=== PATIENT | female | born 1950 | race Caucasian/White ===

== ENCOUNTER 2024-10-05 10:39 | Outpatient (AMB) | payer MEDICARE, SELFPAY ==
--- NOTE | 2024-10-05 10:51 | A.SPINEOV_ITS ---
Vital Signs 10/05/24 11:17 Height 5 ft 3.5 in Weight 190 lb BMI 33.1 Intake Visit Reasons: severe back pain Intake Note: Ms. Donaldson is here today c/o severe low back pain. 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 She is a very nice 74-year-old female presents to the office today for evaluation of an acute onset pain back in August in her right-sided low back radiating down into her anterior thigh into her knee, going down her medial tibial region. At the time she was moving some boxes and lifting things that were probably heavier than she should of. Ultimately she ended up in the emergency room and then went to rehab. The pain seemed to calm down little bit with tincture of time and some gentle medication/physical therapy at the rehab. She is home at this point and still continuing to work with the [facility] but will soon be transitioning to outpatient. She underwent an MRI at [facility] showing a herniated disc on the right L4-5 tucked in the right L5 foramen near the right L4 nerve. This was superimposed on a spondylolisthesis at L4-5 and central canal stenosis at this level as well. She came in today to see us for an evaluation. Her pain is better than it was when she was at the rehab, but it is still nagging her in his not gone away. PMH: She is diabetic but her A1cs fairly well controlled at 6.7, hypertension, she had history of pancreatic cancer with a Whipple procedure, status post splenectomy at the same time. She has been cancer-free and her bowel function is normal. She had a pacemaker placed due to heart block many years ago. She has subsequently had the pacemaker replaced and currently has an MRI compatible 1. Denies any problems with her lungs, liver, kidneys, bleeding disorders, blood clots. Social hx: She does not smoke, drink or use any recreational drugs Medications: Gabapentin, Motrin, sliding scale insulin, Lantus, Wellbutrin and losartan Allergies: None Physical exam: Patient is awake alert oriented no acute distress, she uses a walker, she is able to stand up out of a chair with significant amount of pain and can get up on the examining table but is uncomfortable. Strength in bilateral lower extremities is normal, reflexes at the patella are intact. Diminished reflexes at the Achilles. Imaging review: Lumbar MRI done at [facility] reveals transitional anatomy, at L4-5 there is a grade 1 spondylolisthesis with severe central canal stenosis. In the right L4 foramen there is a herniated disc fragment compressing the right L4 nerve root. There some moderate degenerative disc disease at L2-3. Impression: 74-year-old female presents to the office today for evaluation of acute onset back pain and right L4 distribution nerve pain that started in August when she was lifting some boxes. She has gotten better since that time but not to the point where she is able to do many of the independent things that she would like. She is still using a walker and having to do [facility] at home. She is hoping to transition to outpatient soon. She has a herniated disc on the right L4-5 disc tucked into the right L4 foramen which I believe would explain her pain nicely. This is superimposed on degenerative issues such as spondylolisthesis at L4-5 and severe central canal stenosis. We talked about the natural history of disc herniations, and the fact that most of them will go away on their own if left alone. She has seen significant strides in her pain but again she is not back to being independent yet and this is frustrating her. She is going to continue to work with therapy for now, but if things fail she is interested in possibly considering surgery. I do not think that cortisone injections will be an option given her diabetes. Once I have a chance to review everything with Dr. Paulson I will call the patient back and let her know the final plan. Thank you for allowing us to care for your patient. The total time spent with this visit with this patient was 45 minutes reviewing history, physical exam, lumbar imaging review, and implementation of treatment plan or further diagnostic testing Tanner Paulson MD,PhD [facility] Coding Level of Care Code New Pt Level 4 (30008) Diagnoses Lumbar disc herniation M51.26
[2024-10-05 11:17] VITALS: BMI 33.1
--- OUTSIDE RECORDS SUMMARY | 2024-10-05 12:35 | XMS_ITS | Clinical Summary ---
Author Organization [facility], Address [address] [place] [address] Phone Care Team Providers Care Entry Level Installation Technician Name Role Phone Sherine Osborn MD Primary Care Provider + [phone] Allergies Active Allergy Reactions Criticality Noted Date Comments Lisinopril Other (see comments) Low 08/08/2017 Statins Other (see comments) Low 07/30/2018 Joint pain Medications buPROPion XL (WELLBUTRIN XL) 300 MG 24 hr tablet Take 300 mg by mouth daily Active insulin glargine (Lantus SoloStar) 100 UNIT/ML injection Comments: Filled Date: Oct 19 2016 12:00AM Duration: 90 6 Active amphetamine-de xtroamphetamin e XR (ADDERALL XR) 30 MG 24 hr capsule Take 1 capsule by mouth 1 (one) time each day 7 Active losartan (COZAAR) 25 MG tablet Take 25 mg by mouth 1 (one) time each day 9 Active ascorbic acid (VITAMIN C) 1000 MG tablet Take 1,000 mg by mouth daily Active cholecalcifero l (VITAMIN D-3) 25 MCG (1000 UT) tablet Take 3,000 Units by mouth daily Active omeprazole (PriLOSEC) [address] capsule Take 20 mg by mouth daily 1 Active HumaLOG KWIKPEN 100 UNIT/ML solution pen-injector INJECT 6-16 UNITS SUBCUTANEOUSLY 3 TIMES A DAY BEFORE MEALS ACCORDING TO SLIDING SCALE 1 Active Active Problems Problem Noted Date Diagnosed Date Stage 3a chronic kidney disease 05/08/2021 Carcinoma of pancreas 11/24/2020 Overview (05/04/2021): Last Assessment & Plan: Patient is feeling well and has elective removal scheduled for next month. Diabetes cannot be more aggressively controlled until her pancreatic tumor has been removed and she is otherwise medically optimized. CXR is done and WNL. I have reviewed medications to decrease or hold before the surgery as mentioned in the body of the note above. Also as mentioned above, she did have some lab work done at [facility] and she should let me know if there is anything else I need to order. 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 They also recommended a Hib vaccine and we do not have a supply of adult doses on hand but will request them from the hospital and patient will return in a couple of days to get this done. Abdominal pain, epigastric 09/15/2020 Overview (12/06/2020): Last Assessment & Plan: 70-year-old female with longstanding type 2 diabetes and many episodes of diverticulitis now presents with several years of mild lower abdominal pain, sometimes relieved by defecation, with intermittent constipation and diarrhea and 2 months of a new, quite intense epigastric pain. I think we need to image her abdomen to rule out a new malignancy based on the severity of the pain that she is describing. Assuming that her CAT scan is normal, it does sound like she probably has irritable bowel syndrome and we discussed what this is and how it can be treated. We will start with enteric-coated peppermint oil as directed on the bottle. We also need to rule out other causes and will check her for celiac disease, thyroid disease, and, given her diabetes, chronic pancreatitis. She had a colonoscopy after the more longstanding symptoms had already started, making inflammatory bowel disease or colon cancer very unlikely. No further diverticulitis was observed at that time and her symptoms are not consistent with a recurrence. Chronic kidney disease due to hypertension 10/27 Renal disorder due to type 2 diabetes mellitus 0 10/28/2019 Essential hypertension 06/04/2017 Overview (12/06/2020): Last Assessment & Plan: Stable on current therapies. Continue Cozaar. Last Assessment & Plan: Blood pressures controlled. Continue losartan. History of nutritional deficiency 06/04/2017 Overview (12/06/2020): Last Assessment & Plan: Encourage patient to restart vitamin D supplementation at 2000 IU daily. Will recheck vitamin D level in 3 months. Last Assessment & Plan: Encourage patient to restart vitamin D supplementation at 2000 IU daily. Will recheck vitamin D level in 3 months. Hyperlipidemia 06/04/2017 Overview (12/06/2020): Last Assessment & Plan: Stable, off medications. Repeat fasting lipid in 1 year. Last Assessment & Plan: Stable, off medications. Repeat fasting lipid in 1 year. Type 2 diabetes mellitus 06/04/2017 Overview (12/06/2020): Last Assessment & Plan: Overall improvement with adding Ozempic to current therapy, although concerned about cost of medication. Continue follow-up with Dr. Knott. Would recommend hemoglobin A1c every 3 months. Follow-up in office in 6 months for annual wellness exam. Last Assessment & Plan: Check A1c's. Continue insulin as per primary care provider. Resolved Problems Problem Noted Date Diagnosed Date Resolved Date Chronic kidney disease stage 3 10/28/2019 05/08/2021 Immunizations Name Administration Dates Next Due Hib (PRP-T) 03/03/2021 Influenza Split High Dose Pr eservative Free IM 04/30/2019,03/14/2017 Influenza TIV (IM) 02/23/2015, 3,04/25/2009,03/02,06/12/2007,05/31/2006 Influenza, Quadrivalent, Pre servative Free 05/05/2018 Influenza, Unspecified 04/28/2020 Meningococcal MCV4P 02/28/2021 Meningococcal, Unspecified 02/28/2021 Moderna SARS-COV-2 02/12/2021,09/06/2020, 021 Pneumococcal Conjugate 13-Valent 02/28/2021,07/01,03/21/2016 Pneumococcal Polysaccharide 09/02/2019, 5 Pneumococcal, Unspecified 03/09/2005 Td 02/07/2015 Zoster 09/08/2012 Family History Medical History Relation Comments Cancer Brother Bladder Heart disease Brother Hypertension Brother Brothers Cancer Father bladder Coronary artery disease Father Diabetes Father Hypertension Father Cancer Mother colorectal Relation Status Comments Brother Father Mother Social History Tobacco Use Types Packs/Day Years Used Date Smoking Tobacco: Never Alcohol Use Standard Drinks/Week Comments No 0 (1 standard drink = 0.6 oz pur e alcohol) Comments Unknown Sex and Gender Information Value Date Recorded Sex Assigned at Not on file Legal Sex Female 4:36 PM EST Gender Identity Not on file Sexual Orientation Not on file Occupation Industry Job Start Date Job End Date Retired Not on file Not on file Not on file Last Filed Vital Signs Vital Sign Reading Time Taken Comments Blood Pressure 142/70 05/08/2021 2:23 PM EST Pulse 68 05/08/2021 2:23 PM EST Temperature 36.7 ??C (98 ??F) 11/20/2018 12:00 PM EDT Respiratory Rate 14 05/08/2021 2:23 PM EST Oxygen Saturation - - Inhaled Oxygen Concentration - - Weight 75.8 kg (167 lb) 05/08/2021 2:23 PM EST Height 162.6 cm (5' 4 ) 05/08/2021 2:23 PM EST Body Mass Index 28.67 05/08/2021 2:23 PM EST Plan of Treatment Health Maintenance Due Date Last Done Comments Breast Cancer Screening 1950 Diabetes: Hemoglobin A1C 09/21/2019 08/29/2017 Diabetes: Ophthalmology Exam 09/21/2019 Diabetes: Pedal Pulse Checked 09/21/2019 Diabetes: Sensory Foot Exam 09/21/2019 Diabetes: Visual Foot Exam 09/21/2019 Influenza Vaccine (Season Ended) 2025 04/28/2020, 04/30/2019, 05/05/2018, Additional history exists Pneumococcal Vaccine: 65+ Years Completed 02/28/2021, 09/02/2019, 07/16/2017, Additional history exists Hepatitis B Vaccine Aged Out No longe r eligible based on patient's age to complete this topic Procedures Procedure Name Priority Date/Time Associated Diagnosis Comments 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 Routine 08/29/2017 12:00 PM EST from Last 3 Months or Most Recently Relevant to Health Maintenance Results * Lab Metal Bed Assembler (08/29/2017 12:00 PM EST) Hemoglobin A1C 7.7 % KCTMA 08/29/2017 12:0 0 PM EST us Kca Conversion LAB [id number] LICITED RESULTS [facility] from Last 3 Months or Most Recently Relevant to Health Maintenance Insurance MEDICARE [facility] Care Teams Entry Level Installation Technician Relationship Specialty Start Date End Date Sherine Osborn MD [address] [place] [id number] PCP - General Family Medicine 05/08/21
--- OUTSIDE RECORDS SUMMARY | 2024-10-05 12:35 | XMS_ITS | Encounter Summary ---
Author Organization [facility], Address [address] [place] [address] Phone Care Team Providers Care Risk Control Director Name Role Phone Sherine Osborn MD Primary Care Provider + [phone] Encounter Details Date Type Department Care Team (Late st Contact Info) Description 05/13/2020 Orders Only [facility] [address] [facility] [address] [place] [id number] Jeremiah Whiteside MD Chronic kidney disease stage 3 Social History Tobacco Use Types Packs/Day Years [...] file Not on file Not on file documented as of this encounter Plan of Treatment Not on file documented as of this encounter Visit Diagnoses Diagnosis Chronic kidney disease stage 3 (HCC) documented in this encounter Care Teams Risk Control Director Relationship Specialty Start Date End Date Sherine Osborn MD [address] [place] [address] PCP - General Family Medicine 05/08/21 documented as of this encounter
--- OUTSIDE RECORDS SUMMARY | 2024-10-05 12:35 | XMS_ITS | Data Portability ---
Author Organization [facility], [facility] Address [address] [place] [address] Care Team Providers Care Health Science Specialist Name Role Phone FAHAD KNOTT [place] Line Attendant FARHAN VERDUZCO Primary Care Provider [phone] Assessment Encounter Date Assessment Date Assessment LastModified by Organization Details LastModified Time 11/19/2023 11/19/2023 T2DM on LANTUS. Was on Ozempic (added 2018) with good effect but d/c after pancreatic tumor found and removed (9.21). Off Jardiance since 09/16. Couldn't tolerate metformin. Had UTI after victoza but not clear if that might have been due to high sugars at the time. 08/22: Currently on lantus with low dose humalog and still having lows after meals (mostly lunch). HYPERLIPIDEMIA: Not on lipid-lowering meds. Had severe myalgias likely on atorvastatin and some other. 10/19: LDL up to 125. No meds. 08/22: Discussed idea of non-statins (she had reactions to statins). 05/23: got approval for repatha- didn't start. waiting to see what new policy covers. Fatigue and other sx c/w thyroid but had normal TSH in past. Had normal BMD done in 2019 at [facility] with PCP. CGM REPORT: 11/21: Unable to download most recent month PRIOR CGM: 04/30/23- 3 IMPRESSION: Overall very good control of diabetes with 77% of the time spent in the target range. High values are most likely to occur during the middle of the day and in the evening. Some of these can be in response to hypoglycemia but others can occur prior to hypoglycemia. RECOMMENDATION: Review scale of short acting insulin especially at midday and evening meals. It may be worth decreasing that scale and using more long-acting. PRIOR CGM: 07/18-08/16/22 AVG GLU: 158 mg/dl +/- 60 mg/dl CV= 38% Time in range: 67% Time high: 30% Time low: 3% GENERAL PATTERN: Average glucose in target range for the entire 24 hour period. Highest variability is from 9PM until 5AM. Best average value is between 5-10AM. Values from noon until 3AM generally around 160mg/dl. INDIVIDUAL DAYS: About 30-40% of nights have hyperglycemia that started around 9PM. Multiple brief episodes of hypoglycemia often follow meals (lunch > dininer > bkfst) IMPRESSION: Good control of diabetes with 67% of time in target range. Significant variability throughout afternoon and even more so from 9PM until 4-5AM. Variability due to 30-40% of evenings and nights with hyperglycemia. RECOMMENDATION: Reduce short-acting insulin at meals to reduce frequency of hypoglycemia. Increase use of short-acting for meals/snacks in evening. Corrections for hyperglycemia lasting more than 2 hours may be appropriate. 08/22: Pancreatectomy in 2020 has been reason to stop incretin. 08/23: lows post meal but also highs late PM beyond MN. Using 7-9 with meals. drop to 6-8 units with meals. Lantus has been using 26 instead of 24 (prescribed). stay on 26 for now. 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 Classification was a pT2N0 tumor. - This is not a pancreatic cancer and may allow consideration of re-starting incretin. 05/23: Lows both precede and follow highs (mealtime). Try increase in basal and lower scale for meals. [email or web address] Not available 11/19/2023 18:51:35 12/26/2023 12/26/2023 T2DM on LANTUS. Was on Ozempic (added 2018) with good effect but d/c after pancreatic tumor found and removed (9.21). Off Jardiance since 09/16. Couldn't tolerate metformin. Had UTI after victoza but not clear if that might have been due to high sugars at the time. 08/22: Currently on lantus with low dose humalog and still having lows after meals (mostly lunch). 12/22: on 0.5 ozempic- increas. HYPERLIPIDEMIA: Not on lipid-lowering meds. Had severe myalgias likely on atorvastatin and some other. 10/19: LDL up to 125. No meds. 08/22: Discussed idea of non-statins (she had reactions to statins). 05/23: got approval for repatha- didn't start. waiting to see what new policy covers. 12/22: try and update approval for repatha and start when able. Fatigue and other sx c/w thyroid but had normal TSH in past. Had normal BMD done in 2019 at [facility] with PCP. CGM REPORT: 12/22: checked 14 and 30 day summary: TIR= 75% high= 19%; low= 6% Says lows can be o/n but also if delay in food from taking short-acting (at friends' house). PRIOR CGM: 04/30/23- 3 IMPRESSION: Overall very good control of diabetes with 77% of the time spent in the target range. High values are most likely to occur during the middle of the day and in the evening. Some of these can be in response to hypoglycemia but others can occur prior to hypoglycemia. RECOMMENDATION: Review scale of short acting insulin especially at midday and evening meals. It may be worth decreasing that scale and using more long-acting. PRIOR CGM: 07/18-08/16/22 AVG GLU: 158 mg/dl +/- 60 mg/dl CV= 38% Time in range: 67% Time high: 30% Time low: 3% GENERAL PATTERN: Average glucose in target range for the entire 24 hour period. Highest variability is from 9PM until 5AM. Best average value is between 5-10AM. Values from noon until 3AM generally around 160mg/dl. INDIVIDUAL DAYS: About 30-40% of nights have hyperglycemia that started around 9PM. Multiple brief episodes of hypoglycemia often follow meals (lunch > dininer > bkfst) IMPRESSION: Good control of diabetes with 67% of time in target range. Significant variability throughout afternoon and even more so from 9PM until 4-5AM. Variability due to 30-40% of evenings and nights with hyperglycemia. RECOMMENDATION: Reduce short-acting insulin at meals to reduce frequency of hypoglycemia. Increase use of short-acting for meals/snacks in evening. Corrections for hyperglycemia lasting more than 2 hours may be appropriate. Enhanced Provider time spent performing enhanced activities which may include, but are not limited to: reviewing tests, obtaining and/or reviewing patient history; ordering medications, test or procedures; EMR documentation; communication with patient, family, caregiver(s), VNA; pre-visit prep time communication with specialists, ER staff. Time spent: 38 (minutes) 12/22 08/22: Pancreatectomy in 2020 has been reason to stop incretin. 08/23: lows post meal but also highs late PM beyond MN. Using 7-9 with meals. drop to 6-8 units with meals. Lantus has been using 26 instead of 24 (prescribed). stay on 26 for now. 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 Classification was a pT2N0 tumor. - This is not a pancreatic cancer and may allow consideration of re-starting incretin. 05/23: Lows both precede and follow highs (mealtime). Try increase in basal and lower scale for meals. 12/22: decrease lantus and increase ozempic. try to have her call [employer] (couldn't download) re-order repatha. [email or web address] Not available 12/26/2023 13:46:54 02/27/2024 02/27/2024 T2DM on LANTUS. Was on Ozempic (added 2018) with good effect but d/c after pancreatic tumor found and removed (9.21). Off Jardiance since 09/16. Couldn't tolerate metformin. Had UTI after victoza but not clear if that might have been due to high sugars at the time. 08/22: Currently on lantus with low dose humalog and still having lows after meals (mostly lunch). 12/22: on 0.5 ozempic- increas. HYPERLIPIDEMIA: Not on lipid-lowering meds. Had severe myalgias likely on atorvastatin and some other. 10/19: LDL up to 125. No meds. 08/22: Discussed idea of non-statins (she had reactions to statins). 05/23: got approval for repatha- didn't start. waiting to see what new policy covers. 12/22: try and update approval for repatha and start when able. Fatigue and other sx c/w thyroid but had normal TSH in past. Had normal BMD done in 2019 at [facility] with PCP. CGM REPORT: 02/21: see download for details. 30 days - 01/29/24 - 02/27/24 PRIOR CGM: 07/18-08/16/22 AVG GLU: 130 was 158 mg/dl Time in range: 81% was 67% Time high: 14% was 30% Time low: 1% was 3% some highs after afternoon/evenin g but also risk for lows at those times. Also few lows early AM (pre-B). Since increasing ozempic, suggest small decreases in long-acting and lunch/dinner short-acting. 12/22: checked 14 and 30 day summary: TIR= 75% high= 19%; low= 6% Says lows can be o/n but also if delay in food from taking short-acting (at friends' house). PRIOR CGM: 04/30/23- 3 IMPRESSION: Overall very good control of diabetes with 77% of the time spent in the target range. High values are most likely to occur during the middle of the day and in the evening. Some of these can be in response to hypoglycemia but others can occur prior to hypoglycemia. RECOMMENDATION: Review scale of short acting insulin especially at midday and evening meals. It may be worth decreasing that scale and using more long-acting. PRIOR CGM: 07/18-08/16/22 IMPRESSION: Good control of diabetes with 67% of time in target range. Significant variability throughout afternoon and even more so from 9PM until 4-5AM. Variability due to 30-40% of evenings and nights with hyperglycemia. RECOMMENDATION: Reduce short-acting insulin at meals to reduce frequency of hypoglycemia. Increase use of short-acting for meals/snacks in evening. Corrections for hyperglycemia lasting more than 2 hours may be appropriate. Enhanced Provider time spent performing enhanced activities which may include, but are not limited to: reviewing tests, obtaining and/or reviewing patient history; ordering medications, test or procedures; EMR documentation; communication with patient, family, caregiver(s), VNA; pre-visit prep time communication with specialists, ER staff. Time spent: 38 (minutes) 12/22 08/22: Pancreatectomy in 2020 has been reason to stop incretin. 08/23: lows post meal but also highs late PM beyond MN. Using 7-9 with meals. drop to 6-8 units with meals. Lantus has been using 26 instead of 24 (prescribed). stay on 26 for now. 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 Classification was a pT2N0 tumor. - This is not a pancreatic cancer and may allow consideration of re-starting incretin. 05/23: Lows both precede and follow highs (mealtime). Try increase in basal and lower scale for meals. 12/22: decrease lantus and increase ozempic. try to have her call [employer] (couldn't download) re-order repatha. 02/21: Increase ozempic to 2mg. Since having lows at multiple points (but more often post-lunch and post-dinner), decrease small amount for long-acting and lunch/dinner bolus scales. [email or web address] Not available 02/27/2024 14:50:48 09/22/2024 09/22/2024 T2DM on LANTUS. Was on Ozempic (added 2018) with good effect but d/c after pancreatic tumor found and removed (9.21). Off Jardiance since 09/16. Couldn't tolerate metformin. Had UTI after victoza but not clear if that might have been due to high sugars at the time. 08/22: Currently on lantus with low dose humalog and still having lows after meals (mostly lunch). 12/22: on 0.5 ozempic- increase 09/22: Worse with recent admission and rehab. Pt. reports TIR is 50%. Off Ozempic and doesn't want to restart (constipation). HYPERLIPIDEMIA: Not on lipid-lowering meds. Had severe myalgias likely on atorvastatin and some other. 10/19: LDL up to 125. No meds. 08/22: Discussed idea of non-statins (she had reactions to statins). 05/23: got approval for repatha- didn't start. waiting to see what new policy covers. 12/22: try and update approval for repatha and start when able. 09/22: Much better on repatha Fatigue and other sx c/w thyroid but had normal TSH in past. Had normal BMD done in 2019 at [facility] with PCP. 09/22: Update at [facility]. CGM REPORT: 09/22: virtual visit- can't download (uses reader). Pt reports TIR is 50% 12/22: checked 14 and 30 day summary: TIR= 75% high= 19%; low= 6% Says lows can be o/n but also if delay in food from taking short-acting (at friends' house). PRIOR CGM: 04/30/23- 3 IMPRESSION: Overall very good control of diabetes with 77% of the time spent in the target range. High values are most likely to occur during the middle of the day and in the evening. Some of these can be in response to hypoglycemia but others can occur prior to hypoglycemia. RECOMMENDATION: Review scale of short acting insulin especially at midday and evening meals. It may be worth decreasing that scale and using more long-acting. PRIOR CGM: 07/18-08/16/22 AVG GLU: 158 mg/dl +/- 60 mg/dl CV= 38% Time in range: 67% Time high: 30% Time low: 3% IMPRESSION: Good control of diabetes with 67% of time in target range. Significant variability throughout afternoon and even more so from 9PM until 4-5AM. Variability due to 30-40% of evenings and nights with hyperglycemia. RECOMMENDATION: Reduce short-acting insulin at meals to reduce frequency of hypoglycemia. Increase use of short-acting for meals/snacks in evening. Corrections for hyperglycemia lasting more than 2 hours may be appropriate. Enhanced Provider time spent performing enhanced activities which may include, but are not limited to: reviewing tests, obtaining and/or reviewing patient history; ordering medications, test or procedures; EMR documentation; communication with patient, family, caregiver(s), VNA; pre-visit prep time communication with specialists, ER staff. Time spent: 38 (minutes) 09/22 08/22: Pancreatectomy in 2020 has been reason to stop incretin. 08/23: lows post meal but also highs late PM beyond MN. Using 7-9 with meals. drop to 6-8 units with meals. Lantus has been using 26 instead of 24 (prescribed). stay on 26 for now. 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 Classification was a pT2N0 tumor. - This is not a pancreatic cancer and may allow consideration of re-starting incretin. 05/23: Lows both precede and follow highs (mealtime). Try increase in basal and lower scale for meals. 12/22: decrease lantus and increase ozempic. try to have her call [employer] (couldn't download) re-order repatha. 09/22: worse control while in patient and rehab. trying to get back on track. Not taking ozempic. pt prefers to hold off. - ENDO RN F/U. May well need increase in insulin dosing based on Dexcom. [email or web address] Not available 09/22/2024 12:11:53 Plan of Treatment Reminders Order Date Submit Date Provider Last Modified By Organization Details Last Modified Time Details Appointments Tea rhona 2024 11:15A M [facility] Endocrinolog y Nurse Not available Not available Not available [place] ent- 30 2024 02:30P M DAGOBERTO GARDINERUCHER, DPT Not available Not available Not available Foll ow Up, 2024 02:00P M DAGOBERTO GARCIA, DPT Not available Not available Not available Foll ow Up, 30 2024 02:00P M DAGOBERTO GARCIA, DPT Not available Not available Not available Foll ow Up, 40 2024 03:40P M Fahad Knott MD Not available Not available Not available Lab lipfunmilayo houe l, seru m 2024 025 [facility], [address] [place] [address], [id number], 09/23/2024 14:17:08 micr oalb umin /cre atin ine, rati o ameyae l, urin e 2024 025 [facility], [address] [place] [address], [id number], 09/23/2024 14:17:08 CMP, seru m or plas ma 2024 025 [facility], [address] [place] [address], [id number], 09/23/2024 14:17:08 HbA1 c (hem oglo bin A1c) , bloo d 2024 025 [facility], [address] [place] [address], [id number], 09/23/2024 14:17:08 lipi d ameyae l, seru m [address] [facility], [address] [place] [address], [id number], 09/22/2024 08:48:06 lipi d pane l, seru m [address] [facility], [address] [place] [address], [id number], 09/22/2024 08:48:06 lipi d pane l, seru m [address] [facility], [address] [place] [address], [id number], 09/22/2024 08:48:06 micr oalb umin /cre atin ine, rati o vaishali l, alin e 2023 024 [facility], [address] [place] [address], [id number], 04/16/2024 14:32:57 CMP, seru m or plas ma [address] [facility], [address] [place] [address], [id number], 09/22/2024 08:48:12 HbA1 c (hem oglo bin A1c) , bloo d [address] [facility], [address] [place] [address], [id number], 09/22/2024 08:48:21 HbA1 c (hem oglo bin A1c) , bloo d [address] [facility], [address] [place] [address], [id number], 09/22/2024 08:48:21 CMP, seru m or plas ma [address] [facility], [address] [place] [address], [id number], 09/22/2024 08:48:12 CMP, seru m or plas ma [address] [facility], [address] [place] [address], [id number], 09/22/2024 08:48:12 Referral None maverick rded . Procedures None maverick rded . Surgeries None maverick rded . Imaging bone dens ity - Oste opor osis risk , plea se upda te and comp are. Not on medi mery on. Post -men opau katelyn 74 y.o. cauc yung n woma n.La st imag ing I see in [address] was 12/24 9 at [facility], jazmín ent thin k that she had it more rece ntly 2024 025 [email or web address] in [facility], [address] , [place], [id number], 09/30/2024 19:40:35 Medication Orders Ozem pic 2 mg/d ose (8 mg/3 mL) subc utan eous pen inje ctor 2023 024 [facility] [address] [place], [id number], 09/22/2024 11:11:38 Repa joselito Sure Clic k 140 mg/m L subc utan eous pen inje ctor 2023 024 [facility] [address] [place], [id number], 12/26/2023 13:51:57 Ozem pic 1 mg/d ose (4 mg/3 mL) subc utan eous pen inje ctor 2023 025 [facility] [address] [place], [id number], 09/22/2024 11:11:49 Patient TargetsNo targets recorded. Patient Instructions Encounter Date Encounter Id Patient Instructions Last Modified By Organization Details Last Modified Time 12/26/2023 [id number] - Get labs done as ordered - Continue to monitor your blood sugars as directed - Follow a healthy diet - Try and be as physically active as you can - Decrease Lantus (long acting) to from 24 units to 20 units in the evening. - Increase Ozempic to 1 mg weekly. - Continue Humalog (short-acting) scale as you have been doing. - Sending in new prescription for Repatha- shot every 2 weeks. Will send 30 day supply with refills. If you tolerate the medication, will switch to 90 day supply. - Schedule appointment with Endocrine nurse to see how you're doing 8 weeks. [email or web address] Not available 12/26/2023 13:50:46 6+ months/40 minutes. Not available 12/18/2023 11:16:42 09/22/2024 [id number] - Get labs done as ordered - Continue to monitor your blood sugars as directed - Follow a healthy diet - Try and be as physically active as you can - Continue Lantus (long acting) at 16 at bedtime. - You've decided to stay off Ozempic. - Continue Humalog (short-acting) scale as you have been doing. - Continue Repatha for cholesterol- shot every 2 weeks. - Schedule appointment with Endocrine nurse to see how you're doing 4 weeks. [email or web address] Not available 09/22/2024 12:14:48 6+ months/40 minutes. ENDO RN in 4 weeks. [email or web address] Not available 09/22/2024 12:14:57 Reason for Referral None Reported. Results Created Date Observation Date Name Description Value Unit Range Abnormal Flag Note LastModifiedBy Organization Detail LastModifiedTime 11/19/19 24 11/20/2023 COMP. METAB OLIC PANEL glucose 67 mg/dL 70-100 low Not Available [address], [id number], 11/20/2023 12:11:05 11/19/19 24 11/20/2023 COMP. METAB OLIC PANEL BUN 15 mg/dL 7-18 Not Available [address], [address], 11/20/2023 12:11:05 11/19/19 24 11/20/2023 COMP. METAB OLIC PANEL creatinine 1.0 mg/dL 0.8-1. 3 Not Available [address], [address], 11/20/2023 12:11:05 11/19/19 24 11/20/2023 COMP. METAB OLIC PANEL B/C 15.0 ratio Not Available [address], [address], 11/20/2023 12:11:05 11/19/19 24 11/20/2023 COMP. METAB OLIC PANEL GFR 59.9 mL/mi n abnormal >=60m L/min - Marychuy l or midly reduc ed <60mL /min- Decre ased kidne y funct ion <15mL /min - Kidne y failu re [facility] calcu lates estim ated Glome rular Filtr ation Rate (eGFR ) using the Chron ic Kidne y Disea se Epide miolo gy Colla borat ion (CKD- EPI) Equat ion (Marlon stacy et. al 2020) as recom israel d by the Natio nal Kidne y Found ation . eGFR is based on age, serum creat inine , and sex. CKD-E PI does not calcu late eGFR by race, does not apply to child jess (age <18 years ), and shoul d not be used in pregn sohail. Not Available [address], [address], 11/20/2023 12:11:05 11/19/19 24 11/20/2023 COMP. METAB OLIC PANEL sodium 139 mmol/ L 136-14 5 Not Available [address], [address], 11/20/2023 12:11:05 11/19/19 24 11/20/2023 COMP. METAB OLIC PANEL potassium 5.0 mmol/ L 3.5-5. 1 Not Available [address], [address], 11/20/2023 12:11:05 11/19/19 24 11/20/2023 COMP. METAB OLIC PANEL chloride 101 mmol/ L 96-107 Not Available [address], [address], 11/20/2023 12:11:05 11/19/19 24 11/20/2023 COMP. METAB OLIC PANEL anion gap 9.1 5.0-15 .0 Not Available [address], [address], 11/20/2023 12:11:05 11/19/19 24 11/20/2023 COMP. METAB OLIC PANEL CO2 29 mmol/ L 21-32 Not Available [address], [address], 11/20/2023 12:11:05 11/19/19 24 11/20/2023 COMP. METAB OLIC PANEL calcium 9.6 mg/dL 8.5-10 .3 Not Available [address], [address], 11/20/2023 12:11:05 11/19/19 24 11/20/2023 COMP. METAB OLIC PANEL total protein 7.0 g/dL 6.4-8. 2 Not Available [address], [address], 11/20/2023 12:11:05 11/19/19 24 11/20/2023 COMP. METAB OLIC PANEL albumin 3.4 g/dL 3.4-5. 0 Not Available [address], [address], 11/20/2023 12:11:05 11/19/19 24 11/20/2023 COMP. METAB OLIC PANEL globulin 3.6 g/dL Not Available [address], [address], 11/20/2023 12:11:05 11/19/19 24 11/20/2023 COMP. METAB OLIC PANEL A/G 0.9 ratio 0.8-2. 0 Not Available [address], [address], 11/20/2023 12:11:05 11/19/19 24 11/20/2023 COMP. METAB OLIC PANEL total bilirubin 0.30 mg/dL 0.00-1 .00 Not Available [address], [address], 11/20/2023 12:11:05 11/19/19 24 11/20/2023 COMP. METAB OLIC PANEL AST 20 U/L 0-37 Not Available [address], [address], 11/20/2023 12:11:05 11/19/19 24 11/20/2023 COMP. METAB OLIC PANEL ALT 23 U/L 6-63 Not Available [address], [address], 11/20/2023 12:11:05 11/19/19 24 11/20/2023 COMP. METAB OLIC PANEL alk. phos. 79 U/L 50-136 Not Available [address], [address], 11/20/2023 12:11:05 11/19/19 24 11/20/2023 LIPID PANEL cholesterol 193 mg/dL <200 mg/dl Surjit able 200-2 39 mg/dl Borde rline High >240 mg/dl High Not Available [address], [address], 11/20/2023 12:11:07 11/19/19 24 11/20/2023 LIPID PANEL triglyceride s 143 mg/dL <150 mg/dL Marychuy l 150-1 99 mg/dL Borde rline High 200-4 99 mg/dL High >500 mg/dL Very High Not Available [address], [address], 11/20/2023 12:11:07 11/19/19 24 11/20/2023 LIPID PANEL direct HDL 50 mg/dL <40 mg/dl - Major Risk for CHD >60 mg/dl - Negat neva Risk for CHD Not Available [address], [address], 11/20/2023 12:11:07 11/19/19 24 11/20/2023 DIREC T LDL direct LDL 123 mg/dL RISK CATEG ORY LDL GOAL _ CHD or CHD Risk Equiv alent s <100 mg/dl (10-y ear risk >20%) 2+ Risk Facto rs <130 mg/dl (10-y ear risk <= 20%) 0-1 Risk Facto r? <160 mg/dl ? Almos t all peopl e with 0-1 risk facto r have a 10 year risk <10%, thus 10 year risk asses ment in peopl e with 0-1 risk facto r is not rohith hyatt. Not Available [address], [address], 11/20/2023 12:11:08 11/19/19 24 11/20/2023 MICRO ALBUM IN/CR EATIN INE RATIO PANEL , URINE microalbumin 26.0 mg/L 1.3-20 .0 high Not Available [address], [address], 11/20/2023 13:55:15 11/19/19 24 11/20/2023 MICRO ALBUM IN/CR EATIN INE RATIO PANEL , URINE creatinine urine 68.1 mg/dL 30.0-1 25.0 Not Available [address], [address], 11/20/2023 13:55:15 11/19/19 24 11/20/2023 MICRO ALBUM IN/CR EATIN INE RATIO PANEL , URINE microalb/cre at ratio 38.2 mg/g_ creat 0.0-29 .0 high Not Available [address], [address], 11/20/2023 13:55:15 04/16/20 24 04/16/2024 MICRO ALBUM IN/CR EATIN INE RATIO PANEL , URINE microalbumin 10.0 mg/L 1.3-20 .0 Not Available [address], [address], 04/16/2024 14:32:57 04/16/20 24 04/16/2024 MICRO ALBUM IN/CR EATIN INE RATIO PANEL , URINE creatinine urine 74.6 mg/dL 30.0-1 25.0 Not Available [address], [address], 04/16/2024 14:32:57 04/16/2004/16/2024 MICRO ALBUM IN/CR EATIN INE RATIO PANEL , URINE microalb/cre at ratio 13.4 mg/g_ creat 0.0-29 .0 Not Available [address], [address], 04/16/2024 14:32:57 04/16/20 24 04/16/2024 HGB A1C hemoglobin A1C 6.7 % 4.8-6. 0 high Goal: <7% in Patie nts with Diabe jaymie An A1c betwe en 5.7-6 .4% is ident ified as pre-d iabet es and sugge sts risk for progr essio n to diabe jaymie Two a1c value s of 6.5% or highe r is consi stent with a diagn osis of diabe jaymie but may need furth er confi rmati on Not Available [address], [address], 04/16/2024 14:39:31 04/16/20 24 04/16/2024 HGB A1C estimated average glucose 145.6 mg/dL Not Available [address], [address], 04/16/2024 14:39:31 04/16/20 24 04/20/2024 COMP. METAB OLIC PANEL glucose 127 mg/dL 70-100 high Not Available [address], [address], 04/20/2024 12:01:40 04/16/20 24 04/20/2024 COMP. METAB OLIC PANEL BUN 12 mg/dL 7-18 Not Available [address], [address], 04/20/2024 12:01:40 04/16/20 24 04/20/2024 COMP. METAB OLIC PANEL creatinine 1.2 mg/dL 0.8-1. 3 Not Available [address], [address], 04/20/2024 12:01:40 04/16/20 24 04/20/2024 COMP. METAB OLIC PANEL B/C 10.0 ratio Not Available [address], [address], 04/20/2024 12:01:40 04/16/20 24 04/20/2024 COMP. METAB OLIC PANEL GFR 47.8 mL/mi n abnormal >=60m L/min - Marychuy l or midly reduc ed <60mL /min- Decre ased kidne y funct ion <15mL /min - Kidne y failu re [facility] calcu lates estim ated Glome rular Filtr ation Rate (eGFR ) using the Chron ic Kidne y Disea se Epide miolo gy Colla borat ion (CKD- EPI) Equat ion (Marlon r et. al 2020) as recom israel d by the Natio nal Kidne y Found ation . eGFR is based on age, serum creat inine , and sex. CKD-E PI does not calcu late eGFR by race, does not apply to child jess (age <18 years ), and shoul d not be used in pregn sohail. Not Available [address], [address], 04/20/2024 12:01:40 04/16/20 24 04/20/2024 COMP. METAB OLIC PANEL sodium 140 mmol/ L 136-14 5 Not Available [address], [address], 04/20/2024 12:01:40 04/16/20 24 04/20/2024 COMP. METAB OLIC PANEL potassium 5.2 mmol/ L 3.5-5. 1 high Not Available [address], [address], 04/20/2024 12:01:40 04/16/20 24 04/20/2024 COMP. METAB OLIC PANEL chloride 102 mmol/ L 96-107 Not Available [address], [address], 04/20/2024 12:01:40 04/16/20 24 04/20/2024 COMP. METAB OLIC PANEL anion gap 5.8 5.0-15 .0 Not Available [address], [address], 04/20/2024 12:01:40 04/16/20 24 04/20/2024 COMP. METAB OLIC PANEL CO2 32 mmol/ L 21-32 Not Available [address], [address], 04/20/2024 12:01:40 04/16/20 24 04/20/2024 COMP. METAB OLIC PANEL calcium 9.4 mg/dL 8.5-10 .3 Not Available [address], [address], 04/20/2024 12:01:40 04/16/20 24 04/20/2024 COMP. METAB OLIC PANEL total protein 7.0 g/dL 6.4-8. 2 Not Available [address], [address], 04/20/2024 12:01:40 04/16/20 24 04/20/2024 COMP. METAB OLIC PANEL albumin 3.6 g/dL 3.4-5. 0 Not Available [address], [address], 04/20/2024 12:01:40 04/16/20 24 04/20/2024 COMP. METAB OLIC PANEL globulin 3.4 g/dL Not Available [address], [address], 04/20/2024 12:01:40 04/16/20 24 04/20/2024 COMP. METAB OLIC PANEL A/G 1.1 ratio 0.8-2. 0 Not Available [address], [address], 04/20/2024 12:01:40 04/16/20 24 04/20/2024 COMP. METAB OLIC PANEL total bilirubin 0.60 mg/dL 0.00-1 .00 Not Available [address], [address], 04/20/2024 12:01:40 04/16/20 24 04/20/2024 COMP. METAB OLIC PANEL AST 17 U/L 0-37 Not Available [address], [address], 04/20/2024 12:01:40 04/16/20 24 04/20/2024 COMP. METAB OLIC PANEL ALT 24 U/L 6-63 Not Available [address], [address], 04/20/2024 12:01:40 04/16/20 24 04/20/2024 COMP. METAB OLIC PANEL alk. phos. 73 U/L 50-136 Not Available [address], [address], 04/20/2024 12:01:40 04/16/20 24 04/20/2024 LIPID PANEL cholesterol 119 mg/dL <200 mg/dl Surjit able 200-2 39 mg/dl Borde rline High >240 mg/dl High Not Available [address], [address], 04/20/2024 12:01:41 04/16/20 24 04/20/2024 LIPID PANEL triglyceride s 84 mg/dL <150 mg/dL Marychuy l 150-1 99 mg/dL Borde rline High 200-4 99 mg/dL High >500 mg/dL Very High Not Available [address], [address], 04/20/2024 12:01:41 04/16/20 24 04/20/2024 LIPID PANEL direct HDL 55 mg/dL <40 mg/dl - Major Risk for CHD >60 mg/dl - Negat neva Risk for CHD Not Available [address], [address], 04/20/2024 12:01:41 04/16/20 24 04/20/2024 LDL - CALCU LATED LDL - calculated 47 RISK CATEG ORY LDL GOAL _ CHD or CHD Risk Equiv alent s <100 mg/dl (10-y ear risk >20%) 2+ Risk Facto rs <130 mg/dl (10-y ear risk <= 20%) 0-1 Risk Facto r? <160 mg/dl ? Almos t all peopl e with 0-1 risk facto r have a 10 year risk <10%, thus 10 year risk asses ment in peopl e with 0-1 risk facto r is not neces olena. Not Available [address], [address], 04/20/2024 12:01:42 06/16/20 24 06/16/2024 HGB A1C hemoglobin A1C 6.4 % 4.8-6. 0 high Goal: <7% in Patie nts with Diabe jaymie An A1c betwe en 5.7-6 .4% is ident ified as pre-d iabet es and sugge sts risk for progr essio n to diabe jaymie Two a1c value s of 6.5% or highe r is consi stent with a diagn osis of diabe jaymie but may need furth er confi rmati on Not Available [address], [address], 06/16/2024 13:57:15 06/16/20 24 06/16/2024 HGB A1C estimated average glucose 137.0 mg/dL Not Available [address], [address], 06/16/2024 13:57:15 06/16/20 24 06/17/2024 COMP. METAB OLIC PANEL glucose 134 mg/dL 70-100 high Not Available [address] [place], [address], 06/17/2024 11:23:27 06/16/20 24 06/17/2024 COMP. METAB OLIC PANEL BUN 14 mg/dL 7-18 Not Available [address], [address], 06/17/2024 11:23:27 06/16/20 24 06/17/2024 COMP. METAB OLIC PANEL creatinine 1.2 mg/dL 0.8-1. 3 Not Available [address], [address], 06/17/2024 11:23:27 06/16/20 24 06/17/2024 COMP. METAB OLIC PANEL B/C 11.7 ratio Not Available [address], [address], 06/17/2024 11:23:27 06/16/20 24 06/17/2024 COMP. METAB OLIC PANEL GFR 47.8 mL/mi n abnormal >=60m L/min - Marychuy l or midly reduc ed <60mL /min- Decre ased kidne y funct ion <15mL /min - Kidne y failu re [facility] calcu lates estim ated Glome rular Filtr ation Rate (eGFR ) using the Chron ic Kidne y Disea se Epide miolo gy Colla borat ion (CKD- EPI) Equat ion (Marlon r et. al 2020) as recom israel d by the Natio nal Kidne y Found ation . eGFR is based on age, serum creat inine , and sex. CKD-E PI does not calcu late eGFR by race, does not apply to child jess (age <18 years ), and shoul d not be used in pregn sohail. Not Available [address], [address], 06/17/2024 11:23:27 06/16/20 24 06/17/2024 COMP. METAB OLIC PANEL sodium 141 mmol/ L 136-14 5 Not Available [address], [address], 06/17/2024 11:23:27 06/16/20 24 06/17/2024 COMP. METAB OLIC PANEL potassium 4.9 mmol/ L 3.5-5. 1 Not Available [address], [address], 06/17/2024 11:23:27 06/16/20 24 06/17/2024 COMP. METAB OLIC PANEL chloride 103 mmol/ L 96-107 Not Available [address], [address], 06/17/2024 11:23:27 06/16/20 24 06/17/2024 COMP. METAB OLIC PANEL anion gap 8.5 5.0-15 .0 Not Available [address], [address], 06/17/2024 11:23:27 06/16/20 24 06/17/2024 COMP. METAB OLIC PANEL CO2 30 mmol/ L 21-32 Not Available [address], [address], 06/17/2024 11:23:27 06/16/20 24 06/17/2024 COMP. METAB OLIC PANEL calcium 9.2 mg/dL 8.5-10 .3 Not Available [address], [address], 06/17/2024 11:23:27 06/16/20 24 06/17/2024 COMP. METAB OLIC PANEL total protein 6.8 g/dL 6.4-8. 2 Not Available [address], [address], 06/17/2024 11:23:27 06/16/20 24 06/17/2024 COMP. METAB OLIC PANEL albumin 3.5 g/dL 3.4-5. 0 Not Available [address], [address], 06/17/2024 11:23:27 06/16/20 24 06/17/2024 COMP. METAB OLIC PANEL globulin 3.3 g/dL Not Available [address], [address], 06/17/2024 11:23:27 06/16/20 24 06/17/2024 COMP. METAB OLIC PANEL A/G 1.1 ratio 0.8-2. 0 Not Available [address], [address], 06/17/2024 11:23:27 06/16/20 24 06/17/2024 COMP. METAB OLIC PANEL total bilirubin 0.50 mg/dL 0.00-1 .00 Not Available [address], [address], 06/17/2024 11:23:27 06/16/20 24 06/17/2024 COMP. METAB OLIC PANEL AST 18 U/L 0-37 Not Available [address], [address], 06/17/2024 11:23:27 06/16/20 24 06/17/2024 COMP. METAB OLIC PANEL ALT 24 U/L 6-63 Not Available [address], [address], 06/17/2024 11:23:27 06/16/20 24 06/17/2024 COMP. METAB OLIC PANEL alk. phos. 64 U/L 50-136 Not Available [address], [address], 06/17/2024 11:23:27 06/16/20 24 06/17/2024 LIPID PANEL cholesterol 122 mg/dL <200 mg/dl Surjit able 200-2 39 mg/dl Borde rline High >240 mg/dl High Not Available [address], [address], 06/17/2024 11:23:29 06/16/20 24 06/17/2024 LIPID PANEL triglyceride s 87 mg/dL <150 mg/dL Marychuy l 150-1 99 mg/dL Borde rline High 200-4 99 mg/dL High >500 mg/dL Very High Not Available [address], [address], 06/17/2024 11:23:29 06/16/20 24 06/17/2024 LIPID PANEL direct HDL 59 mg/dL <40 mg/dl - Major Risk for CHD >60 mg/dl - Negat neva Risk for CHD Not Available [address], [address], 06/17/2024 11:23:29 06/16/20 24 06/17/2024 DIREC T LDL direct LDL 53 mg/dL RISK CATEG ORY LDL GOAL _ CHD or CHD Risk Equiv alent s <100 mg/dl (10-y ear risk >20%) 2+ Risk Facto rs <130 mg/dl (10-y ear risk <= 20%) 0-1 Risk Facto r? <160 mg/dl ? Almos t all peopl e with 0-1 risk facto r have a 10 year risk <10%, thus 10 year risk asses ment in peopl e with 0-1 risk facto r is not neces olena. Not Available [address], [address], 06/17/2024 11:23:30 09/25/19 25 09/17/2024 MRI, lumba r spine No observ ation record ed. [facility] (Radiology) [address] [place], [address], 09/24/2024 17:05:14 Result Notes None recorded. Problems Name Problem SNOMED Code Status Onset Date Resolution Date Notes Provider Name and Address Organization Details Recorded Time Type 2 diabetes mellitus 12743106 Active dx'd approx . age 51 SILVESTRE Morin, RN, CPT, CDE [address] [place], [place] [address], [address], [facility] 5 15:25:54 Moderate recurrent major depression 44058968 Active Kimberly Jimenez NP [address] [place] [address] [place], [address], [facility] 5 11:22:53 Hypothyroidism 72480212 Active Corrine Brad null, [facility] 6 15:55:25 Vitamin B12 deficiency (non anemic) 61287575 Active Kimberly Jimenez NP [address] [place], [place] [address], [address], [facility] 5 10:03:47 Uncontrolled type 2 diabetes mellitus 757300207 Active Kimberly Jimenez NP [address] [place] [address] [place], [address], [facility] 6 13:39:25 Chronic kidney disease stage 3 812162280 Active 2021 GFR = 54, 2 Fahad Knott MD [address] [place] [address] [place], [address], [facility] 4 13:12:08 Problem Notes None recorded. Procedures Surgical History Date Name Laterality Status Provider Name and Address Organization Details Recorded Time 11/08/19 22 Medicare Visit Tracking DM completed Martha Mckeon RN, BSN, [address], [address], [facility] 11/07/2021 11:42:16 11/14/19 19 CGM Insertion Procedure completed Maria D Polk LPN [facility] 11/13/2018 16:37:58 07/01/19 14 Other (specify) completed Kimberly Jimenez NP [address] [place] [address], [phone], [facility] 02/09/2015 11:12:17 09/30/19 12 cardiac pacemaker procedure completed Maria D Polk LPN [facility] 10/16/2018 13:14:54 Tonsillectomy completed Kimberly Jimenez NP [address] [place], [address], [facility] 02/09/2015 11:12:17 Cholecystectomy completed Kimberly Jimenez NP [address] [place], [address], [facility] 02/09/2015 11:12:17 Imaging Results Imaging Date Name Status LastModified by Organiz ation Details LastModified Time 09/17/2024 MRI, lumbar spine completed [facility] (Radiology) [address] [place], [address], 09/24/2024 17:05:14 Procedure Notes None recorded. Medical Equipment None Reported. Allergies Allergen ID Allergen Name Allergen Category Reaction Reaction Severity Criticality Documentation Date Start Date Code Code System Note Provider Name and Address Organization Details Recorded Time 353519 metformin medicatio n diarrhea Not available Not available 02/09/2015 6809 RxNorm x 4 years ; think s it was only short actin g Kimberly Jimenez NP [address] [place] [address] [place], [address], [facility] 6 13:20:59 381519 honey bee venom environme nt other Not available Not available 02/23/2015 38980 7 RxNorm itchy throa t//Vera rd time linda Flores [facility] 5 09:25:16 911186 Victoza medicatio n other Not available Not available 07/07/2015 09370 3 RxNorm UTI Kimberly Jimenez NP [address] [place] [address] [place], [address], [facility] 6 13:20:59 Medications Name Sig Start Date Stop Date Status Note LastModified by Organization Details LastModified Time amoxicill in 500 mg caps active Not Available Not Available Not Available victoza 18 mg/3ml sopn active Not Available Not Available Not Available adderall xr 25 mg cp24 Take one capsule once a day active Not Available Not Available No t Available freestyle mis lancets active Not Available Not Available Not Available clindamyc in hcl 150 mg caps active Not Available Not Available Not Available freestyle jaymie insulinx active Not Available Not Available Not Available bupropion hcl xl 300 mg tb24 10/16 completed Not Available Not Available Not Available bupropion hcl xl 150 mg tb24 10/16 completed Not Available Not Available Not Available methylphe nidate hcl 5 mg tabs 10/16 completed Not Available Not Available Not Available adderall xr 30 mg cp24 active Not Available Not Available Not Available novofine [id number] 32g x 6 mm misc active Not Available Not Available Not Available metformin hcl er 500 mg tb24 10/16 completed Not Available Not Available Not Available phenazopy ridine hcl 200 mg tabs active Not Available Not Available Not Available sulfameth oxazole/t rimethopr im ds 800-160 mg tabs active Not Available Not Available Not Available metformin hcl 500 mg tabs active Not Available Not Available Not Available glipizide 5 mg tabs active Not Available Not Available No t Available proair hfa 108 (90 base) mcg/act aers active Not Available Not Available Not Available amphetami ne/dextro amphetami ne 30 mg cp24 06/25 completed Not Available Not Available Not Available levothyro xine sodium 25 mcg tabs 10/16 completed Not Available Not Available Not Available losartan 50 mg tablet TAKE 1 TABLET BY MOUTH ONCE DAILY active Not Available Not Available No t Available amoxicill in 500 mg capsule 10/16 completed Not Available Not Available Not Available metformin 500 mg tablet TAKE 1 TABLET BY MOUTH TWICE A DAY active Not Available Not Available No t Available azithromy mine 250 mg tablet 08/16 completed Not Available Not Available Not Available fosfomyci n trometham ine 3 gram oral packet 08/16 completed Not Available Not Available Not Available fluconazo le 150 mg tablet 10/16 completed Not Available Not Available Not Available valacyclo vir 1 gram tablet 08/16 completed Not Available Not Available Not Available phenazopy ridine 200 mg tablet Take 1 tablet 3 times a day by oral route for 3 days. active Not Available Not Available No t Available ondansetr on HCl 4 mg tablet TAKE 1 TABLET BY MOUTH EVERY 8 HOURS NEEDED FOR NAUSEA 09/22 completed Not Available Not Available Not Available methylphe nidate 5 mg tablet TAKE 1 TABLET BY MOUTH ONCE DAILY active not taking now 09/22/24 Not Available Not Available Not Available sulfameth oxazole 800 mg-trimet hoprim 160 mg tablet TAKE 1 TABLET BY MOUTH TWICE DAILY FOR 5 DAYS 12/25 completed Not Available Not Available Not Available acetamino phen 500 mg tablet TAKE 1 TABLET BY MOUTH EVERY 6 HOURS NEEDED FOR PAIN active Not Available Not Available No t Available levothyro xine 25 mcg tablet TAKE ONE TABLET BY MOUTH ONCE A DAY. 10/16 completed Not Available Not Available Not Available meclizine 25 mg tablet 04/30 completed Not Available Not Available Not Available doxycycli ne monohydra te 100 mg capsule TK 2 CS PO ONCE FOR 1 DOSE 10/04 completed Not Available Not Available Not Available cephalexi n 500 mg capsule TAKE 1 CAPSULE BY MOUTH FOUR TIMES DAILY FOR 7 DAYS 10/04 completed Not Available Not Available Not Available triamcino lone acetonide 55 mcg nasal spray aerosol U 1 SPR IEN BID FOR 14 DAYS 02/10 completed PRN Not Available Not Available Not Available losartan 25 mg tablet TAKE 1 TABLET BY MOUTH ONCE DAILY 12/25 completed Not Available Not Available Not Available omeprazol e 20 mg capsule,d elayed release TAKE 1 CAPSULE BY MOUTH ONCE DAILY active Not Available Not Available No t Available gabapenti n 100 mg capsule TAKE 2 CAPSULES BY MOUTH THREE TIMES DAILY active Not Available Not Available No t Available ergocalci ferol (vitamin D2) 1,250 mcg (50,000 unit) capsule TK 1 C PO ONCE WEEKLY 10/16 completed Not Available Not Available Not Available cefuroxim e axetil 500 mg tablet 12/11 completed Not Available Not Available Not Available scopolami ne 1 mg over 3 days transderm al patch 09/22 completed Not Available Not Available Not Available albuterol sulfate HFA 90 mcg/actua tion aerosol inhaler INHALE 2 PUFFS INTO THE LUNGS Q 4 H PRN active Not Available Not Available No t Available dextroamp hetamine- amphetami ne ER 30 mg 24hr capsule,e xtend release TAKE 1 CAPSULE BY MOUTH ONCE DAILY active states not taking now 09/22/24 Not Available Not Available Not Available hydromorp ren 4 mg tablet TAKE 1/2 TO 1 (ONE-MIHAI F TO ONE) TABLET BY MOUTH EVERY 6 HOURS NEEDED FOR PAIN 03/25 /2025 completed Not Available Not Available Not Available cefdinir 300 mg capsule 08/16 completed Not Available Not Available Not Available metformin ER 500 mg tablet,ex tended release 24 hr TAKE 1 TABLET BY MOUTH ONCE A DAY IN THE MORNING. 10/16 completed Not Available Not Available Not Available glipizide 5 mg tablet TAKE 1 TABLET BY MOUTH TWICE A DAY. 10/16 completed Not Available Not Available Not Available metoclopr amide 10 mg tablet TAKE 1 TABLET BY MOUTH TWICE DAILY FOR 3 DAYS 09/22 completed Not Available Not Available Not Available amoxicill in 875 mg-potass ium clavulana te 125 mg tablet TAKE 1 TABLET BY MOUTH TWICE DAILY FOR 10 DAYS active Not Available Not Available No t Available oxycodone 5 mg tablet TAKE 1 TABLET BY MOUTH EVERY 6 HOURS NEEDED FOR BACK PAIN 09/22 completed Not Available Not Available Not Available insulin lispro (U-100) 100 unit/mL subcutane ous pen INJECT 6 TO 16 UNITS SUBCUTAN EOUSLY THREE TIMES DAILY BEFORE MEAL(S) PER SLIDING SCALE active Not Available Not Available No t Available azithromy mine 500 mg tablet 04/30 completed Not Available Not Available Not Available escitalop lonnie 10 mg tablet TAKE 1/2 (ONE-MIHAI F) TABLET BY MOUTH ONCE DAILY active Not Available Not Available No t Available Vitamin D3 25 mcg (1,000 unit) tablet Take 1 tablet every day by oral route. 10/16 completed takes in winter Not Available Not Available Not Available bupropion HCl XL 300 mg 24 hr tablet, extended release TAKE 1 TABLET BY MOUTH IN THE MORNING active Not Available Not Available No t Available bupropion HCl XL 150 mg 24 hr tablet, extended release TK 1 T PO D 12/11 completed Not Available Not Available Not Available escitalop lonnie 5 mg tablet TAKE 1 TABLET BY MOUTH DAILY 05/30 completed Not Available Not Available Not Available metformin ER 500 mg tablet,ex tended release 24hr (osmotic) Take 1 tablet every day by oral route in the morning. 10/16 completed Not Available Not Available Not Available nitrofura ntoin monohydra te/macroc rystals 100 mg capsule TAKE 1 CAPSULE BY MOUTH TWICE DAILY FOR 7 DAYS 12/25 completed Not Available Not Available Not Available BD Ultra-Fin e Mini Pen Needle 31 gauge x 3/16 USE FOUR TIMES DAILY DIRECTED WITH HUMALOG AND LANTUS active Not Available Not Available No t Available FreeStyle Lancets use to check bg 3 x daily active Not Available Not Available No t Available BD Ultra-Fin e Short Pen Needle 31 gauge x 5/16 USE 1 UNDER THE SKIN DAILY active Not Available Not Available No t Available FreeStyle Lite Strips Use to check bg 3x day 2021 active Not Available Not Available Not Avai lable cholecalc iferol (vitamin D3) 1,250 mcg (50,000 unit) capsule TK 1 C PO ONCE A WEEK 10/16 completed Not Available Not Available Not Available FreeStyle Lite Meter Use to check bg 3x daily active Not Available Not Available No t Available Lantus Solostar U-100 Insulin 100 unit/mL (3 mL) subcutane ous pen INJECT 24 UNITS SUBCUTAN EOUSLY DAILY active taking 16 units daily 09/22/24 Not Available Not Available Not Available Novofine 32 32 gauge x 1/4 needle Use 1 needle daily 2014 active Not Available Not Available Not Avai lable GaviLyte- G 236 gram-22.7 4 gram-6.74 gram-5.86 gram oral solution 12/11 completed Not Available Not Available Not Available Victoza 2-Caio 0.6 mg/0.1 mL (18 mg/3 mL) subcutane ous pen injector Inject 0.6 mg daily x 1 week and if no side effects increase to 1.2 mg daily. 2014 active Not Available Not Available Not Avai lable Shae-cedric 8.6 mg tablet TAKE 1 TABLET BY MOUTH TWICE DAILY NEEDED FOR CONSTIPA TION active Not Available Not Available No t Available Jardiance 10 mg tablet TK 1 T PO QD IN THE MORNING 12/11 completed Not Available Not Available Not Available Praluent Pen 75 mg/mL subcutane ous pen injector 11/14 completed Not Available Not Available Not Available Repatha SureClick 140 mg/mL subcutane ous pen injector INJECT 1 ML SUBCUTAN EOUSLY EVERY TWO WEEKS active Not Available Not Available No t Available FreeStyle Precision Ronaldo Meter U UTD TO CHECK BS 08/16 completed Not Available Not Available Not Available Readi-Cat 2 2 % (w/v) oral suspensio n IF AM APPT DRINK 1 BOTTLE AT 8 PM NIGHT BEFORE AND SECOND BOTTLE 90 MINUTES BEFORE EXAM. IF PM APPT DRINK 1 BOTTLE 6 HOURS PRIOR TO EXAM AND SECOND BOTTLE 90 MINUTES PRIOR TO EXAM active Not Available Not Available No t Available Ozempic 0.25 mg or 0.5 mg (2 mg/1.5 mL) subcutane ous pen injector INJECT 0.5MG UNDER THE SKIN EVERY WEEK 08/16 completed Not Available Not Available Not Available Dexcom G6 Sensor device USE DIRECTED . CHANGE EVERY 10 DAYS 10/21 completed using G 7 and iphone Not Available Not Available Not Available Dexcom G6 Cattle Trader USE DIRECTED 10/21 completed using Dexcom G 7 now and iphone Not Available Not Available Not Available Dexcom G6 Transmitt er device USE DIRECTED CHANGE EVERY 90 DAYS 10/21 completed using G 7 and iphone Not Available Not Available Not Available Dexcom G6 Cattle Trader 08/16 completed Not Available Not Available Not Available Fluarix Quad 4431-1817 (PF) 60 mcg (15 mcg x 4)/0.5 mL IM syringe ADM 0.5ML IM UTD 10/16 completed Not Available Not Available Not Available Baqsimi 3 mg/actuat ion nasal spray nasal spray during severe hypoglyc emia. 12/25 completed SC: 08/22; Labs: 08/22 Not Available Not Available Not Available Nexletol 180 mg tablet 05/30 completed Not Available Not Available Not Available COVID-19 test specimen collectio n TEST DIRECTED 08/16 completed Not Available Not Available Not Available Ozempic 1 mg/dose (4 mg/3 mL) subcutane ous pen injector INJECT 1 MG SUBCUTAN EOUSLY ONCE A WEEK FOR 30 DAYS 09/22 completed Not Available Not Available Not Available BinaxNOW COVID-19 Ag Self Test kit TEST DIRECTED TODAY active Not Available Not Available No t Available Paxlovid 300 mg (150 mg x 2)-100 mg tablets in a dose pack TK 2 NIRMATRE LVIR TS AND 1 RITONAVI R T TOGETHER PO BID FOR 5 DAYS BID FOR 5 DAYS 08/16 completed Not Available Not Available Not Available Ozempic 2 mg/dose (8 mg/3 mL) subcutane ous pen injector INJECT 2 MG SUBCUTAN EOUSLY ONCE A WEEK active PT stopped when hospital ized this month Not Available Not Available Not Available Ozempic 0.25 mg or 0.5 mg (2 mg/3 mL) subcutane ous pen injector INJECT 0.5 (ONE-MIHAI F) MG SUBCUTAN EOUSLY EVERY 7 DAYS. APPOINTM ENT REQUIRED FOR FUTURE REFILLS, 1 MONTH OVERDUE 02/26 completed Not Available Not Available Not Available Vitals Date Recorded Body height Body mass index (BMI) Body weight Heart rate Systolic blood pressure Diastolic blood pressure Provider Name and Address Organization Details Last Updated DateTime 4 160.02 cm 34.9 kg/m2 42206.9 8 g 87 /min 133 mm[Hg] 84 mm[Hg] Lucita Clement LPN [facility] 4 13:10:50 Date Recorded Body height Body mass index (BMI) Body weight Provider Name and Address Organization Details Last Updated DateTime 09/22/2024 160.02 cm 33.7 kg/m2 39706.55 g Lucita Clement [facility] 09/22/2024 11:04:17 Social History Question Answer Notes LastModified by Organization Details LastModified Time Tobacco Smoking Status Never Smoker PRIYANKA Hurd, [facility] 02/09/2015 10:12:08 What Is Your Level Of Alcohol Consumption? None Information not available 02/09/2015 Do You Wear A Helmet When Biking? Yes Information not available 02/09/2015 What Is Your Level Of Caffeine Consumption? Occasional Iced Tea Every 3 Days Information not available 02/09/2015 How Much Tobacco Do You Chew? None Information not available 02/09/2015 What Type Of Diet Are You Following? REGULAR Information not available 02/09/2015 Which Illicit Or Recreational Drugs Have You Used? 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 0 Information not available 02/09/2015 Are There Any Guns Present In Your Home? No Information not available 02/09/2015 Live Alone Or With Others? With Others Information not available 02/09/2015 DM Disease Process Post-grasps [place] Information not available 05/09/2015 Nutrition Post-needs Review Information not available 05/09/2015 Physical Activity Post-needs Review Information not available 05/09/2015 Medications Post-needs Review Information not available 05/09/2015 Monitoring Post-needs Review Information not available 05/09/2015 Acute Complications Post-grasps [place] Information not available 05/09/2015 Chronic Complications Post-needs Review Information not available 05/09/2015 Coping Post-needs Review Information not available 05/09/2015 Behavior Change Post-needs Review Information not available 05/09/2015 DSME Plan Goal Using Medications Safely: Will Take Victoza As Prescribed Information not available 05/09/2015 DSME Plan Goal Success Initiated Information not available 05/09/2015 DSME Plan Goal Evaluation: 05/05/2015 Information not available 05/09/2015 DSME Plan Initiated: 05/05/2015 DSMT 1:1 X 7-8 Information not available 05/09/2015 DSME Plan Status In Progress - Dates Seen: 05/05 Information not available 05/09/2015 Marital Status Domestic Partner Maira Perman Information not available 02/09/2015 Mosquito Repellent Used Routinely No Information not available 02/09/2015 What Was The Date Of Your Most Recent Tobacco Screening? 12/11/2018 Information not available 01/21/2019 How Many Children Do You Have? 0 Information not available 02/09/2015 Seat Belts Used Routinely Yes Information not available 02/09/2015 Are You Sexually Active? Yes Information not available 02/09/2015 Smoke Alarm In Home Yes Information not available 02/09/2015 General Stress Level Medium Information not available 02/09/2015 Do You Use Any Illicit Or Recreational Drugs? No Information not available 08/16/2022 Do You Use Sunscreen Routinely? Yes Information not available 02/09/2015 Do You Or Have You Ever Used Any Other Forms Of Tobacco Or Nicotine? No Information not available 08/16/2022 Sex: Unknown Functional Status None recorded. Mental Status None recorded. Family History Relationship Description Onset Age of this Age Resolved Age Notes LastModified by Organization Details LastModified Time Mother Chronic obstructive pulmonary disease 80 Not available 02/09 11:10:02 Mother Malignant tumor of colon 55 colost allie Not available 02/09/2015 11:10:02 Father Myocardial infarction 71 NC x 12+, eventu ally Not available 02/09/2015 11:10:02 Father Coronary arterioscler osis 92 Not available 02/09 11:10:02 Father Malignant neoplasm of urinary bladder Not available 02/09 11:10:02 Father Alcoholism Not avail able 02/09/2015 11:10:02 Brother Malignant neoplasm of urinary bladder 58 Ez opher Not available 02/09/2015 11:10:02 Brother Essential hypertension Not available 11:10:02 Brother Depressive disorder Not available 02/09 11:10:02 Brother Alcoholism sober since 59 Not available 02/09/2015 11:10:02 Brother Congenital heart disease Esteban Not available 02/09 11:10:02 Paternal Aunt Malignant tumor of breast 70 Not available 02/09 11:10:02 Notes:2 brothers passed: aug 2019 and september 2019 maternal uncle passed 05/2019 paternal aunts w/ DM Dad 92 (EtOH); CAD, bladder CA Mom 80 (EtoH) with COPD (smoker) 2 brothers- one with congenital heart disease (holes)- moved to [place] to get surgery (citizen) ; other has HTN and CAD. 12/17- No kids. 06/18- Uncle - declining health. 02/17: Brothers- one with congenital heart- ongoing heart issues. Other from [place]. 10/19: Both brothers passed in 2019. 08/22: No family left. Medical History Condition Response Depression Y Pacemaker Y Diverticulosis Y Hypothyroid Y Diverticulitis Y Diabetes Type II Y Gynecological HistoryNo gynecological history recorded. Obstetrics History GPAL:G 0 P 0 0 0 0 Immunizations Vaccine Type Date Status Note Provider Nam e and Address Organization Details Recorded Time Influenza, split virus, quadrivalent, PF 5 completed Not Available [facility] 07/18/2019 02:19:45 influenza, unspecified formulation 3 completed Andree Louie, [facility] [facility] 02/09/2015 09:25:24 influenza, unspecified formulation 8 completed Andree Louie, [facility] P[facility] 02/09/2015 09:25:24 zoster live 3 completed Andree Louie, [employer] BA[employer] PICK[employer] [facility] 02/09/2015 09:25:24 influenza, unspecified formulation 7 completed Andree Louie, [employer] BAIT PICKER [facility] 02/09/2015 09:25:24 pneumococcal, unspecified formulation 5 completed Andree Louie, [employer] BA[employer] PICK[employer] [facility] 02/09/2015 09:25:24 influenza, unspecified formulation 6 completed Andree Louie, [employer] BA[employer] PICKER [facility] 02/09/2015 09:25:24 influenza, unspecified formulation 9 completed Andree Louie, [employer] BA[employer] PICK[employer] [facility] 02/09/2015 09:25:24 Td(adult) unspecified formulation 5 completed Andree Louie, [employer] BA[employer] P[employer] [facility] 02/09/2015 09:26:24 Influenza, high-dose, trivalent, PF 9 completed Not Available [facility] 07/18/2019 02:24:31 SARS-COV-2 (COVID-19) vaccine, UNSPECIFIED 1 completed Ida Westfall LPN [facility] 10/04/2020 13:14:24 COVID-19, mRNA, LNP-S, PF, 30 mcg/0.3 mL dose 2 completed Lucita Clement [facility] 08/16/2022 15:34:53 COVID-19, mRNA, LNP-S, PF, 30 mcg/0.3 mL dose 1 completed Lucita Racquel [employer]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 Hypothyroidism 24896346 Fatigue 17337057 Deep lacer ation of finger 861276011 Resolving. [id number] [facility], [address] [place] [address] 02/23/2015 09:17:14 02/23/2015 10:14:55 Influenza vaccine needed 8459116554 106 Type 2 iván betes mellitus 11258296 Hypothyroidism 52939648 Bite of no nvenomous arthropod 714827941 Lifestyle 006721298 Vitamin B1 2 deficiency (non anemic) 16702253 [id number] SILVESTRE Morin, RN, CPT, CDE [facility] , [address] [address] 05/05/2015 12:16:58 05/05/2015 13:46:12 Type 2 diabetes mellitus 90852001 E11.9 [id number] SILVESTRE Morin, RN, CPT, CDE DM Education , [address] [address] 05/30/2015 09:08:34 05/30/2015 09:47:39 Type 2 diabetes mellitus 78076234 E11.9 [id number] Ismael Hough MD , [facility], [address] [place] [address] 06/12/2015 09:26:19 06/12/2015 12:00:18 Blood in urine 02393246 R31.9 [id number] Kimberly Jimenez NP , [facility], [address] [place] [address] 07/07/2015 12:30:18 07/07/2015 13:42:42 Uncontrolled type 2 diabetes mellitus 576102441 E11.65 Hypothyroidism 18067517 E03.9 Due for recheck. [id number] Fahad Knott MD Endocrino logy, [address] [address] 10/16/2018 12:59:54 10/17/2018 07:18:55 Uncontrolled type 2 diabetes mellitus 694530253 E11.65 A1c in low-mid 7s (awaiting most recent from [facility]).Sirena nt regimen doesn't have great coverage for post-prand ial. Would like to have better understand ing of her glycemic pattern.Pr o-CGM would provide that. Place standing orders. Options will include:- Change to longer lasting insulin (Tresiba/T oujeo)- Re-try Victoza to see if she tolerates Look into continuous glucose monitor (CGM) for her. At least the profession al to assess glycemic pattern Essential hypertension 82955484 I10 On losartan (25). [place] hum 52052875 R2 2.2 Check 24 hour urine for cortisol. [id number] Fahad Knott MD Endocrino logy, [address] [address] 11/13/2018 15:32:16 11/17/2018 07:26:35 Type 2 diabetes mellitus 55115835 E11.9 [id number] Maria D Polk LPN Endocrino logy, [facility] [address] [place] [address] 11/26/2018 14:54:28 11/27/2018 06:17:30 [id number] Fahad Knott MD Endocrino logy, [address] [address] 12/11/2018 15:00:52 12/12/2018 07:13:07 Uncontrolled type 2 diabetes mellitus 371246686 E11.65 A1c in low-mid 7s (awaiting most recent from [facility]). 7.1 in 08/19- reflected Lantus and Jardiance (had gone off of Victoza as while back).But off Jardiance shortly after this lab. No recent values. Just lantus doesn't have great coverage for post-prand ial. Encourage getting labs on regular basis. Options will include:- trial of another GLP-1 agonist (prefer weekly options of either semaglutid e or dulaglutid e)- combinatio n of GLP-1 with long-actin g insulin (Soliqua or Xultophy)- Possible DPP-4 inhibitor but won't get weight loss benefit. Also, will want to come back and discuss trial with pravastati n (low dose) or use of statin TIS. Agree to try semaglutid e. start at low dose. Essential hypertension 49159086 I10 On losartan (25). Fatigue 83391912 R53.83 No hx of snoring but wakes up tired on most days. Would suggest discussing with PCP about sleep study. [id number] Fahad Knott MD Endocrino logy, [address] [address] 04/30/2019 10:34:11 04/30/2019 12:52:19 Active or passive immunization 445284627 Z23 2019 Uncontroll ed type 2 diabetes mellitus 944832539 E11.65 A1c down to 6.4 in 03/19. Had been higher in low-mid 7s (awaiting most recent from [facility]). Doing very well on Ozempic with Lantus 16 (AM). Encourage getting labs on regular basis. standing orders placed 11/2018. Increase semaglutid e to 0.5. Decrease Lantus from 16 to 12 units.At some point, may look at ratio of glargine to ozempic and see if mixed product (Soliqua/X ultophy) might be easier option. Essential hypertension 67005246 I10 On losartan (25). BP at target today Fatigue 56197949 R53.83 Reports having normal TFTs in past. Last TSH in record was 06/17 (2.54). No hx of snoring but wakes up tired on most days. Would suggest discussing with PCP about sleep study. [id number] Fahad Knott MD Endocrino logy, [facility] [address] [place] [address] 06/25/2019 10:31:57 06/25/2019 12:59:08 Uncontrolled type 2 diabetes mellitus 467600796 E11.65 A1c down to 6.5 (06/18); was 6.4 in 03/19.Had been higher in low-mid 7s (awaiting most recent from [facility]). Doing very well on Ozempic with Lantus 12 (AM). Encourage getting labs on regular basis. standing orders placed 11/2018. Continue on semaglutid e at 0.5. Stay on Lantus 12 units. At some point, could consider looking at ratio of glargine to ozempic and see if mixed product (Soliqua/X ultophy) might be easier option. Essential hypertension 67473903 I10 On losartan (25). BP at target today Fatigue 89299697 R53.83 Last TSH in record was 06/17 (2.54). No hx of snoring but wakes up tired on most days. Would suggest discussing with PCP about sleep study. [id number] Fahad Knott MD Endocrino logy, [facility] [address] [place] [address] 02/11/2020 08:14:47 02/16/2020 07:15:43 Uncontrolled type 2 diabetes mellitus 180977504 E11.65 A1c up to 7.2 (01/17); was down to 6.5 (06/18); was 6.4 in 03/19.Had been up to 9.2 in 2014. Doing very well on Ozempic with Lantus 12 (AM). Monitor BG at home. Continue on semaglutid e at 0.5. Stay on Lantus 12 units. Nurse visit 4-6 weeks. At some point, could consider looking at ratio of glargine to ozempic and see if mixed product (Soliqua/X ultophy) might be easier option. Essential hypertension 70861802 I10 On losartan (25). BP at target today Fatigue 52353721 R53.83 TSH = 2.24 in 2016. No hx of snoring but wakes up tired on most days.Would suggest discussing with PCP about sleep study. Update TSH. [id number] Fahad Knott MD Endocrino logy, [address] [address] 10/04/2020 13:09:18 10/05/2020 19:24:19 Uncontrolled type 2 diabetes mellitus 479177998 E11.65 A1c= 6.9 (08/21); was 7.2 (01/17); was down to 6.5 (06/18); was 6.4 in 03/19. Had been up to 9.2 in 2014. Doing very well on Ozempic (0.5) with Lantus 16 (AM). Could consider trying to increase Ozempic but she has been having abdominal pain (didn't start with Ozempic or change in dose), so don't want to make any changes now. MRI this week for abdominal pain. Monitor BG at home. At some point, could consider looking at ratio of glargine to ozempic and see if mixed product (Soliqua/X ultophy) might be easier option. Essential hypertension 47906007 I10 On losartan (25). Fatigue 03622755 R53.83 TSH = 2.24 in 2015. No hx of snoring but wakes up tired on most days.Would suggest discussing with PCP about sleep study. Update TSH. [id number] Fahad Knott MD Endocrino logy, [address] [address] 08/16/2021 09:04:26 08/31/2021 18:23:01 Uncontrolled type 2 diabetes mellitus 275912081 E11.65 A1c= 8.2 (02/18); 6.9 (08/21); was 7.2 (01/17); was down to 6.5 (06/18); was 6.4 in 03/19. Had been up to 9.2 in 2014. Had been doing well on Ozempic (0.5) with Lantus 16 (AM).08/22: Off Ozempic s/p partial pancreatec rylie. Given Humalog with lantus but having lows after meals (mostly lunch) - Could consider CGMPt. interested . Discussed option of CGM +/- pump.Start with dexcom. Essential hypertension 90101121 I10 On losartan (25). Fatigue 30241448 R53.83 TSH = 3.61 (02/18); was 2.24 in 2016. No hx of snoring but wakes up tired on most days. [id number] Martha Mckeon, RN, BSN, [facility] DM Education , [facility] [address] [place] [address] 10/12/2021 10:48:44 10/12/2021 13:03:32 Uncontrolled type 2 diabetes mellitus 626486095 E11.65 -In person appt with Tomeka today at [facility].-Cherise patel referred by Dr. Knott for diabetes education. -Last A1C was 8.4% in August, it had been 8.2% in January. 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 Had the surgery done at [facility] [place]. Had a malignant tumor in her pancreas. Had CT scan done yesterday to make sure she does not need further treatment. -Stopped taking Ozempic after tumor discovered . -Had sepsis for a month and a half after the surgery.-N ow she has gained 22 lbs weight. Her weight is now 184 lbs. She feels like she is exercising and eating well and still struggling with her weight. She felt she was doing better with the Ozempic. -Current Medication s:Lantus 26 units once a day.Humalo g 6-16 units based on sliding scale, 3x/day. -Pt comes today with the Dexcom G6 sensor, requesting training.- Called [facility] because pt did not have the transmitte r with her. Only had the sensor and the reader. The Pharmacy reports that pt picked up the transmitte r on even though the RX looks like it was sent from us on . Pt. will look to see if she has the transmitte r at home.-[employer] had a sample of the transmitte r and we were able to start and insert the sensor today.-Pt. was able to get the Dexcom G6 sensor started during this visit. -PLAN: Start Dexcom G6 sensor today and wear it until our next appt. Encouraged pt bring her meter and her sensor for download so we can review her blood sugars informatio n. No changes made today since we were unable to review her data. [id number] Martha Mckeon, RN, BSN, [facility] DM Education , [facility] [address] [place] [address] 11/07/2021 07:59:27 12/13/2021 13:29:40 Uncontrolled type 2 diabetes mellitus 890294006 E11.65 -In person appt with Tomeka today at [facility].-Kindl y referred by Dr. Knott for diabetes education. -Last A1C was 8.4% in August, it had been 8.2% in January. 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 Had the surgery done at [facility] [place]. Had a malignant tumor in her pancreas. Had CT scan done yesterday to make sure she does not need further treatment. -Stopped taking Ozempic after tumor discovered . -Had sepsis for a month and a half after the surgery. -Current Medication s:Lantus 26 units once a day.Humalo g 3-5 units based on sliding scale, 3x/day. -Pt came to our previous appt with the Dexceom G6 sensor and we reviewed how it is inserted. She did not have a transmitte r at the time, therefore, [facility] had a sample and we gave her one. She did however, try to insert the next sensor into her skin the second time and it would not work, therefore, we suspect that she had used a different transmitte r because she brought 2 transmitte rs into the office today and we re-inserte d the sensor, determined which transmitte r was programmed into her toggler and used that transmitte r. Told her that she might have tried using the other transmitte r and it was not programmed into her toggler with the SN entered in. Download of her sensor today reveals:-A verage glucose for the last 30 days was: 159 mg/dl.-70% are in target range (70-180 mg/dl); 19% are above 180 mg/dl; 9% are above 250 mg/dl; 1% are below 70 mg/dl and <1% are below 50 mg/dl. -The main trend noted are elevated glucose for short periods of time at 10 am, 6 pm and 1 am. Also having a mix of low glucose with no pattern noted. -PLAN: Start Dexcom G6 sensor again today. Had difficulty with inserting it the second time and we reviewed how to insert it again. The main issue had been that she had 2 transmitte rs and may have used the transmitte r that was not programmed with her reader. She had no trouble inserting a new sensor after we reviewed the steps today. She was encouraged to enter her doses of short acting insulin so we can understand how she is responding to her Humalog with meals. She reports she is dropping quickly from the Humalog, however, the low glucose do not appear to have a pattern. Created a Carb Ratio and Correction factor cheat sheet for her to try since she is not always eating large amounts of carbohydra jaymie with meals and this might also help prevent low glucose after meals. Based on her total daily insulin of 35 units per day, calculated out that her Carbohydra te ratio is 1 unit for 15 grams and her Correction factor is 1 unit for 50 mg/dl if above 100 mg/dl. She will try to use this new dosing for Humalog and document it into her Dexcom reader. FU in 1 month for download of the sensor. Reviewed:H ow to insert the sensor again. How to check the transmitte r programmed into the reader. Reviewed the sensor download in detail. [id number] Fahad Knott MD Endocrino logy, [address] [address] 08/16/2022 15:04:17 08/17/2022 07:34:06 Uncontrolled type 2 diabetes mellitus 929953080 E11.65 A1c= 7.0 (07/23); was 7.5% (11/19) was 8.2 (02/18); 6.9 (08/21); was 7.2 (01/17); was down to 6.5 (06/18); was 6.4 in 03/19. Had been up to 9.2 in 2014. 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 Also having highs evening lasting past MN in 30-40% of times. Decrease Humalog at meals but stay on 26 units of lantus that she's been taking. May want to consider change to Toushefalio/Madhu ayoub to have better coverage overnight (assuming she's taking dose in AM). Might be able to re-start incretin. Will check other sources for connection between GLP1-RA and neuroendoc rine tumors. Essential hypertension 30363284 I10 On losartan (25). Fatigue 79044124 R53.83 TSH = 4.07 (11/19) was 3.61 (02/18); was 2.24 in 2015. Pt reports PCP said that her TSH was close to abnormal and wondered about tx.Discuss ed concept of normal range and that normal there's no evidence to suggest treating a normal TSH will be helpful. For fatigue, if she hasn't had sleep evaluation , that might be worth considerkathe carnes [id number] Fahad Knott MD Endocrino logy, [address] [address] 05/30/2023 13:24:00 06/27/2023 14:28:07 Uncontrolled type 2 diabetes mellitus 430507581 E11.65 A1c= 6.9 (05/23 and 10/21) was 7.0 (07/23); was 7.5% (11/19) was 8.2 (02/18); 6.9 (08/21); was 7.2 (01/17); was down to 6.5 (06/18); was 6.4 in 03/19. Had been up to 9.2 in 2014. 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 Decrease scale by 2 units for now (mostly for evening; lunch may be able to go up).ENDO RN in 2 months. bring in scale. Essential hypertension 77020302 I10 On losartan (25). Fatigue 22564297 R53.83 TSH = 4.07 (11/19) was 3.61 (02/18); was 2.24 in 2016. Pt reports PCP said that her TSH was close to abnormal and wondered about tx.Discuss ed concept of normal range and that normal there's no evidence to suggest treating a normal TSH will be helpful. For fatigue, if she hasn't had sleep evaluation , that might be worth considerin g. [id number] Fahad Knott MD Endocrino logy, [address] [address] 08/29/2023 10:10:02 10/24/2023 07:41:59 Uncontrolled type 2 diabetes mellitus 296109194 E11.65 New insulin dosing :1.) - try Ozempic 0.25 mg weekly2. ) will send new carb chart to pt ( pt on portal, but can mail or pt can come to supervisor opening and picking. )3.) Lantus same 24 unitReview ed S/S hypoglycem ia - handout given, reviewed how/when to treat ? glucose tabs and oj and followed by protein [id number] Adrian Heart RN Endocrino logy, [address] [phone] 10/22/2023 10:44:54 10/25/2023 13:01:13 Uncontrolled type 2 diabetes mellitus [id number] E11.65 [id number] Fahad Knott MD Endocrino logy, [address] [address] 11/19/2023 13:05:07 11/21/2023 08:52:03 Uncontrolled type 2 diabetes mellitus [id number] E11.65 VISIT HgbA1c -HGB A1C 08-26-2023 -7.3 %, (08/24) was 6.9 (05/23) Diabetic Meds:1.) - Started Ozempic 0. 5 mg x 1 - finished 0.25 mg x 4 weeks2.) - Lantus 24 units daily - around 9 PM3.)- Humalog - sliding scale - 5 -8 units 100 - every 50 unit increment by 1 unit ( needs to take 20- 30 min before meals ) DR KNOTT IN TO SEE PT AND REVIEW CGM RESULTS CGM download unable to view - pt is not connected to clarity gwen - somehow deleted from phone, unable to add gwen today d/t pt not knowing her Apple ID password. - Dr Knott reviewed phone results - basically same as has been with previous reading from CGM - ave 149 and range - 76 % over 2 week period. Plan :1.) - Advised to continue same doses - just started increase in Ozempic to 0.5 mg2.)- Try to plan to have mealtime insulin given 20- 30 minutes before eating.3.) - Lab today.4.)- Dexcom G 7 Cattle Trader set for patient.5. )- Return visit- Dr Knott appt on 12/26/23 - bring Dexcom g 7 Reader6.)- Try to plan to have mealtime insulin given 20- 30 minutes before eating. Essential hypertension [id number] I10 On losartan (25). Fatigue [id number] R53.83 TSH = 4.07 (11/19) was 3.61 (02/18); was 2.24 in 2015. Pt reports PCP said that her TSH was close to abnormal and wondered about tx.Discuss ed concept of normal range and that normal there's no evidence to suggest treating a normal TSH will be helpful. For fatigue, if she hasn't had sleep evaluation , that might be worth considerkathe carnes [id number] Fahad Knott MD Endocrino logy, [address] [address] 12/26/2023 13:00:48 12/26/2023 13:52:59 Uncontrolled type 2 diabetes mellitus [id number] E11.65 A1c= 7.3 (08/24) was 6.9 (05/23 and 10/21) was 7.0 (07/23); was 7.5% (11/19) was 8.2 (02/18); 6.9 (08/21); was 7.2 (01/17); was down to 6.5 (06/18); was 6.4 in 03/19. Had been up to 9.2 in 2014. 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 Decrease scale by 2 units for now (mostly for evening; lunch may be able to go up).ENDO RN in 2 months. bring in scale. 12/22: Decrease lantus (HS) from 24 units to 20 units.Incr ease Ozempic 0.5 -> 1.0.review ed- labs q 3 months Essential hypertension [id number] I10 On losartan (50). Fatigue 06083896 R53.83 TSH = 3.22 (10/22) was 4.07 (11/19) was 3.61 (02/18); was 2.24 in 2015. Not on thyroid meds. Pt reports PCP said that her TSH was close to abnormal and wondered about tx.Discuss ed concept of normal range and that normal there's no evidence to suggest treating a normal TSH will be helpful. For fatigue, if she hasn't had sleep evaluation , that might be worth considerin g. Hyperlipid emia due to type 2 diabetes mellitus [id number] 18873 E78.5 NOT CONTROLLED 11/21: 193/143/53 /123 no meds. couldn't tolerate statins.Wa s approved for repatha last year but question about new insurance. re-order [id number] Fahad Knott MD Endocrino logy, [facility] [address] [place] [address] 02/27/2024 09:55:52 02/27/2024 14:55:10 Uncontrolled type 2 diabetes mellitus [id number] E11.65 A1c= 7.3 (08/24) was 6.9 (05/23 and 10/21) was 7.0 (07/23); was 7.5% (11/19) was 8.2 (02/18); 6.9 (08/21); was 7.2 (01/17); was down to 6.5 (06/18); was 6.4 in 03/19. Had been up to 9.2 in 2014. 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 Decrease scale by 2 units for now (mostly for evening; lunch may be able to go up).ENDO RN in 2 months. bring in scale. 12/22: Decrease lantus (HS) from 24 units to 20 units.Incr ease Ozempic 0.5 -> 1.0. 02/21: Increase ozempic to 2mg. Since having lows at multiple points (but more often post-lunch and post-dinne r), decrease small amount for long-actin g and lunch/dinn er bolus scales. [id number] Fahad Knott MD Endocrino logy, [address] [phone] 09/22/2024 10:57:24 09/23/2024 16:02:30 Uncontrolled type 2 diabetes mellitus [id number] E11.65 09/22: Uncontroll ed based on TIR and reported values from patient in last 6-8 weeks. A1c= 6.4 (06/23) was 6.7 (04/23) was 7.3 (08/24) was 6.9 (05/23 and 10/21) was 7.0 (07/23); was 7.5% (11/19) was 8.2 (02/18); 6.9 (08/21); was 7.2 (01/17); was down to 6.5 (06/18); was 6.4 in 03/19. Had been up to 9.2 in 2014. 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 Decrease scale by 2 units for now (mostly for evening; lunch may be able to go up).ENDO RN in 2 months. bring in scale.12/22 : Decrease lantus (HS) from 24 units to 20 units.Incr ease Ozempic 0.5 -> 1.0.review ed- labs q 3 months 09/22: On lantus 16 @ HS and Lispro with meals. Not controlled . Off Ozempic. F/U ENDO RN in 4 weeks. will be off Ozempic and likely needs increase in insulin dosing Hyperlipid emia due to type 2 diabetes mellitus [id number] 51167 E78.5 09/22: much better on repatha:: 122/87/59/ 53 11/21: 193/143/53 /123 no meds. couldn't tolerate statins.Wa s approved for repatha last year but question about new insurance. re-order Essential hypertension [id number] I10 On losartan (50). At [facility] ed risk of osteoporosis [id number] Z91.89 74 y.o. post-menop ausal with DMT2. Postmenopausal state [id number] Z78.0 Health Concerns Section Related Observation LastModified by Organization Detai ls LastModified Time None Recorded Concern Status LastModified by Organization Details LastModified Time None Recorded Advance Directives Directive None Recorded Payers Encounter Date Sequence Insurance Name Policy Number Policy Desir Covered Member ID Desir Member ID Guarantor Name 10/22/2023 1 [place] [facility] [id number] [facility] 10/22/2023 2 [place] [id number] [facility] [id number] [facility] 11/19/2023 1 [place] [facility] [id number] 81 [facility] 11/19/2023 2 [place] [id number] [facility] [id number] [facility] 12/26/2023 1 MEDICARE B-[place]: [facility] [id number] 81 [facility] 12/26/2023 2 [place] [id number] [facility] [id number] [facility] 02/27/2024 1 [place] [facility] [place] [id number] 81 [facility] 02/27/2024 2 [place] [id number] [facility] [id number] [facility] 09/22/2024 1 [place] [facility] [id number] 81 [facility] 09/22/2024 2 [place] [id number] [facility] [id number] [facility] Notes Date Note Type Note Provider Name and Address Organization Details Recorded Time 024 text/ht ml 08/29/23 Nurse/MD visit plan :New insulin dosing :1.) - try Ozempic 0.25 mg weekly2. ) will send new carb chart to pt ( pt on portal, but can mail or pt can come to supervisor opening and picking. )3.) Lantus same 24 unit Reviewed S/S hypoglycemia - handout given, reviewed how/when to treat ? glucose tabs and oj and followed by Law with MD - 12/19/2023 C - 3:40 PM Returns today for update on how things are going since re-starting OZempic and here for CGM download. 10/23/23-Returns for CGM download -No CGM sensors - pt has been out - needs PA now, pt upset with [facility] -states one delay after another 1.) -RX to [facility] for Dexcom G 7 sensors - copy of RX given to pt -call them2.)- Samples given today to start G 7. Reviewed instructions for use3.)- Return again in 4 weeks to review CGM download Adrian Heart RN [facility], [place] - [facility] 10/25/2023 10:46:11 024 text/ht ml 10/22/23 RN VISIT:NV with MD - 12/19/2023 [facility] - 3:40 PMReturns today for update on how things are going since re-starting Ozempic and here for CGM download.10/23/23-Returns for CGM download -No CGM sensors - pt has been out - needs PA now, pt upset with [employer] -states one delay after another 1.) -RX to [facility] for Dexcom G 7 sensors - copy of RX given to pt -call them2.)- Samples given today to start G 7. Reviewed instructions for use3.)- Return again in 4 weeks to review CGM download 11/19/23 RN/MD Visit Stressful - mother - in - law in hospice - ( age 89 yo care dependent on 24 hr pts)Does not like using i- phone for BS reading s for CGM. Returns for CGM Download and review of CGM results with Dr Knott.[id number] A1C 08-26-2023 -7.3 %, (08/24) was 6.9 (05/23) Diabetic Meds:1.) - Started Ozempic 0. 5 mg x 1 - finished 0.25 mg x 4 weeks2.) - Lantus 24 units daily - around 9 PM3.)- Humalog - sliding scale - 5 -8 units 100 - every 50 unit increment by 1 unit ( needs to take 20- 30 min before meals ) DR KNOTT IN TO SEE PT AND REVIEW CGM RESULTS CGM download unable to view - pt is not connected to clarity gwen - somehow deleted from phone, unable to add gwen today d/t pt not knowing her Apple ID password. - Dr Knott reviewed phone results - basically same as has been with previous reading from CGM - ave 149 and range - 76 % over 2 week period. Plan :1.) - Advised to continue same doses - just started increase in Ozempic to 0.5 mg2.)- Try to plan to have mealtime insulin given 20- 30 minutes before eating.3.)- Lab today.4.)- Dexcom G 7 Cattle Trader set for patient.5.)- Return visit- Dr Knott appt on 12/26/23 - bring Dexcom g 7 Reader6.)- Try to plan to have mealtime insulin given 20- 30 minutes before eating. Nurse: JENNIFER Mg MD [address] [place] [address], [phone], [facility] 11/19/2023 18:52:15 024 text/ht ml PCP: Tera ([facility])RENAL: Starr; Anne.Surgeon (GI): Angel Follow-Up: type II diabetes mellitus uncontrolledFatiguehypertensionLV on 05/23Last labs on 08/24 7.3Labs cuedLAst nurse visit on 11/21checks blood sugars has CGM /dexcom will add to chart Goes to [place] every few weeks to see MIL who has dementia.Other family members help out12/22: She just prior to 89rd birthday. PAST MEDICAL Hx (updated):Hx of HTN, heart block with pacemaker. Collapsed on vacation ()Intestinal surgery- diverticulitis.HTN- sees Miesha. Told of early kidney damage from diabetes. On losartan ().08/22: s/p partial pancreas and splenectomy (SPFLD). Increase in lantus. Off ozempic.Tumor found following GI sx (half pancreas removed); complicated with sepsis.08/23: LOC from low BG. At home- 1AM.05/23: Told it was a neuroendocrine tumor but without spread. 05/23: Injured back- trying to lift something.12/22: No changes. 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.08/23: Walks over a mile with dog (veto baum) every day. Lifts weights while watching TV.Weight 20# up since 03/2021.05/23: Was walking with dog (12) but (veto terrier- 50#). Will get another (rescue collie).12/22: Walks dog- arm gets torn off . Might downsize. FAMILY Hx (updated):2 brothers passed: aug 2019 and september 2019NO KIDS. No family left Pt has had very low blood sugars and friend once found passed out from on floor. PTs biggest concern blood sugar doesnt see to consoude with what she is eating.PTs thyroid is borderline and PCP would like her to start something to help this. F/U for DMT2 (basal/bolus), HTN, lipids, fatigue Vitamin D- better in 05/21.Vit D= 47.5 (05/21) was 56 (04/19) On 1000 IU vitamin D (12/22; was 500 in 05/23 and before).Had been on vitamin D 50K per week. VitD >60 in 08/19. Now on 2000 per day.PCP has checked fall 2018. Told it was little low Had been to [place] 2017: Chronic pain (shoulders not bad/hips/knees bad/back) a bit better.Hx depression/insomnia/ADHD. FATIGUE: ongoing x years.Energy a bit better (12/22 and 05/23). Better concentration.Exhausted with of MIL and helping with estate. Recognizes component of depressed (08/23).Had to give up so many things with pandemic. Running on empty . Ongoing but not as bad. Told her thyroid was borderline Often goes to bed at 2:30-3AM and gets up at 10AM. bkfst at 11AM. dinner at 5pm TSH= 4.07 (11/19); was 3.61 (02/18); was 2.24 (07/06); was 2.54; 171/94/50/102; creat= 1.1; ast/alt= 21/14;Labs in 05/21: No anemia. Vitamin D > 30. OK on Ozempic at 0.5 dose Has had diverticulitis- not like that. Lot of gas too. No exacerbating/alleviating factors (occ better with food).03/21: Pancreatic tumor found- told it was slow-growing CA. Had partial pancreatectomy and splenectomy.GI sx: Strong family hx of colon CA. Sees Morelia. Thinks last one was 4 years ago. Trying to be in bed by [place] and asleep by 1AM (used to be 2-4AM). ROS:Hx sepsis after surgery in 03/21.Hx of bad sinus h/a.No SOB.No n/v. No abdominal painTemperature.No CP/pressure. No fluttering/racing/pounding.CARDS is [facility]. Hx pacemaker. Total heart block.No dizziness with standing in AM. Recalls BMD at [facility] couple of years ago.CDH:L1-L4= 1.0 (2018)Right hip= 1.0 (2018)Left hip= 1.2 (2018)Doesn't take calcium. Takes 2K vitamin D. She thinks had more recently. Fahad Knott MD [address] [place] [address], [phone], [facility] 12/26/2023 13:51:55 024 text/ht ml DiabetesReported bypatient.Labs:last Hemoglobin A1C: (7.3 (08/24) was 6.9 (05/23 and 10/21) was 7.0 (07/23); was 7.5% (11/19) was 8.2 (02/18); was 6.9 (08/21); was 7.2 (01/17); was 6.5 (06/18); was 6.4 (03/19); was 7.1 (2018); was 7.3 (06/17)); microalbumin/creatinine ratio: normal (38.2 (11/21; had UTI) was 8.7 (08/24)); serum creatinine: (1.0 (11/21); was 1.3 (05/23 and 10/21) was 1.1 (07/23); was 1.0 (02/18); was 1.1 (08/21 and 01/17); was 1.0 (06/18); was 1.2 with eGFR of 50 (03/19);); LDL (119 (05/23) was 136 (10/21) was 125 (07/23 and 08/21); was 85 (06/18); was 118 (03/19) (not on statin)); Triglycerides (52 (07/23): 154 (08/21); was 106 (06/18); was 212 (not fasting)); HDL (63 (07/23); was 54 (08/21); was 46 (06/18); was 37 (03/19)) Diabetes Medications:glargine (LANTUS: 24 (HS since 05/23); 26 (08/23); was 24 HS (08/22); was 16 (10/19); was 12 (2019 and in 06/18; was 16 in ); lispro (8-11 (12/22); was 7-9 with most meals. 3 with PM snack.); 12/22: Humalog mostly 8 units TID AC Back on Ozempic 0.5 weekly - stopped after partial pancreatectomy for tumor (03/21). Told it was cancer but not the kind that spreads. Renal/HTN Medications:losartan (50) Lipid Medications:NO CHOLESTEROL MEDS. Took years ago and had severe joint problems. Couldn't walk up stairs. Discussed option of Zetia or Welchol and mechanisms involved. also pcsk9i Approved for [employer] but didn't fill and changing plans (07/24). Review blood sugar:monitoring glucose 3 times per day (3-5 x per day.) Associated Symptoms:no increased urinary frequency; no polyuria; no nocturia (1x.); no burning or discomfort with urination (had UTI earlier this year.); no foul odor or discharge; no blurred vision; no weight loss; WEIGHT (home): 200 (12/22); was 191 (05/23); was 193 (08/23); was 166 at home (10/19). Cardiac / Eye / Podiatric / Renal / Vascular Symptomsno coronary artery disease; no retinopathy ([facility] (11/21) Early cataracts); no numbness of feet; no kidney disease (saw Miesha 1-2x for baseline); f/u in 07/2023. Hypoglycemia Symptomsfrequency of hypoglycemic episodesseveral times per week (few times per week. More often overnight.); Excessive sweating when hypoglycemic; Shakey when hypoglycemic; Wakes due to Dexcom. Lab was 67 (11/21)- Knew she had to get something to eat right away. In past, had LOC at 1AM in bathroom.Notes:11/21: 193/143/53/[address]/23: 193/68/57/119. Approved by [employer] but changing insurance so didn't get to start it. Now on Lantus and Humalog.Back on Ozempic after surgery for pancreatic tumor.05/23: Has sheet for humalog dosing. Off Jardiance (yeast infections)NOT Metformin- constant diarrhea. Tried on ER and still had problems.NOT Victoza- worked but got UTI. Sleeps around 1AM and up by 8AM. eats 10AM, 2-3PM (biggest), 7PM. Has dexcom.12/22: can't download G7.14 day report: TIR= 75% high= 19%; low= 6%Can have lows if meal is off from time she gives insulin. Sometimes at others' homes. Fahad Knott MD [address] [place] [address], [place], [phone], [facility] 12/26/2023 13:51:55 024 text/ht ml 11/19/23 RN/MD Visit Stressful - mother - in - law in hospice - ( age 89 yo care dependent on 24 hr pts) - - 12/11/23Does not like using i- phone for BS reading s for CGM. Previous CGM download unable to view - pt is not connected to clarity gwen - somehow deleted from phone, unable to add gwen today d/t pt not knowing her Apple ID password.Given [facility] 10/2023 02/27/24Retu rns for CGM Download and review of CGM results with Dr Knott. TnqI3y-9/2024 - 6.6 % , 08-26-2023 -7.3 %, (08/24) was 6.9 (05/23)Diabetic Meds:1.) - Started Ozempic 1 mg - tolerating fine no n/v/d, abd pain2.) - Lantus 20 from 24 units daily - around 9 PM ( decrease to 18 uni3.)- Humalog - sliding scale - 5 -8 units o( needs to take 20- 30 min before meals )carb count and BS # and if 170 - 8 units , 160- 7 units, 150 - 6 units , 110 with carbs is 5 units no inuslin if low carb abd low BS # of 80 or less. Recent illness - COVID [address] KNOTT IN TO SEE PT AND REVIEW CGM RESULTS CGM :30 days - 01/29/24 - 02/27/24 PRIOR CGM: 07/18-08/16/22AVG GLU: 130 158 mg/dlTime in range: 81% was 67%Time high: 14% was 30%Time low: 1% was 3%Plan :1>) - Ozempic 2 mg weekly2>)- Lantus -( decrease to 18 units)3>) Decrease Humalog by 2 units based on the scale pt uses - Try to plan to have mealtime insulin given 20- 30 minutes before eating.- Lab orders in place - due now for HgbA1c- Return visit- Dr Knott appt on 06/25/24Nurse: JENNIFER Mg MD [address] [place] [address], [phone], [facility] 02/27/2024 14:52:17 025 text/ht ml DiabetesReported bypatient.Labs:last Hemoglobin A1C: (6.4 (06/23) was 6.7 (04/23) was 7.3 (08/24) was 6.9 (05/23 and 10/21) was 7.0 (07/23); was 7.5% (11/19) was 8.2 (02/18); was 6.9 (08/21); was 7.2 (01/17); was 6.5 (06/18); was 6.4 (03/19); was 7.1 (2018); was 7.3 (06/17)); microalbumin/creatinine ratio: normal (13.4 (04/23) was 38.2 (11/21; had UTI) was 8.7 (08/24)); serum creatinine: (1.2 (06/23 and 04/23) was 1.0 (11/21); was 1.3 (05/23 and 10/21) was 1.1 (07/23); was 1.0 (02/18); was 1.1 (08/21 and 01/17); was 1.0 (06/18); was 1.2 with eGFR of 50 (03/19);) Diabetes Medications:GLP1-RA: Semaglutide (Ozempic) (off when inpatient- hasn't restarted.); Long-acting insulins: Lantus (16 units at HS.); 12/22: Humalog mostly 8 units TID AC 09/22: Ozempic causing complication. Feels drinking fluids and taking fiber at home. Back on Ozempic 0.5 weekly - stopped after partial pancreatectomy for tumor (03/21). Told it was cancer but not the kind that spreads. Renal/Hypertension (HTN) MedsARB: Losartan (50) Lipid Medications:PCSK9i: Evolocumab (Repatha); In past- Took years ago and had severe joint problems. Couldn't walk up stairs. Discussed option of Zetia or Welchol and mechanisms involved. also pcsk9i Approved for [employer] but didn't fill and changing plans (07/24). Other Medications:gabapentin Associated Symptoms:no increased urinary frequency; no polyuria; no nocturia (1x.); no burning or discomfort with urination (had UTI earlier this year.); no foul odor or discharge; no blurred vision; WEIGHT (home): 190 (09/22); was 200 (12/22); was 191 (05/23); was 193 (08/23); was 166 at home (10/19). Cardiac / Eye / Podiatric / Renal / Vascular Symptomsno coronary artery disease; no retinopathy (Morelia (11/21); Early cataracts); no numbness of feet; no kidney disease (saw Miesha 1-2x for baseline) Hypoglycemia Symptomsfrequency of hypoglycemic episodesseveral times per week (few times per week. More often overnight.); Excessive sweating when hypoglycemic; Shaky when hypoglycemic; Wakes due to Dexcom. Lab was 67 (11/21)- Knew she had to get something to eat right away. In past, had LOC at 1AM in bathroom.Notes:CGM (per patient) - uses reader and not phone.09/22: per pt, avg 30 day was 181 (09/22); TIR is 50%Now at home, taking insulin when high. 4-8 units with meals. LIPIDS:06/23: 122/87/59/535/: 193/143/53/43672/: 193/68/57/119. Approved by [employer] but changing insurance so didn't get to start it. On Lantus and Humalog.Back on Ozempic after surgery for pancreatic tumor.05/23: Has sheet for humalog dosing. Off Jardiance (yeast infections)NOT Metformin- constant diarrhea. Tried on ER and still had problems.NOT Victoza- worked but got UTI.09/22: Off Ozempic since admitted but notices much less constipation now than before. Has dexcom.12/22: can't download G7.14 day report: TIR= 75% high= 19%; low= 6%Can have lows if meal is off from time she gives insulin. Sometimes at others' homes. PCP: Tera ([facility])RENAL: [facility]; [place].Surgeon (GI): Angel Follow-Up: uncontrolled type 2 diabetes mellitusFatiguehypertensionPlace of ServicePatient at home or other non-healthcare setting (POS - 10)Patient at a facility (POS - 02)LV on 12/22Last labs on 06/23 A1C6.4Labs cuedLAst nurse visit on 02/21checks blood sugars has CGM /dexcom uses reader will review some numbersPT doing a video visit today to discuss blood sugars have been running high, PT was hospitalized at [facility] for about 8 days for injury to back and then went to rehab and then went back to hospital for about 8 days and had MRI not back yet but has pinched nerve effecting all the way down leg. PT doing some physical therapy for this.PTs 164 now, average for 30 days 181- 7% very high, 41% high, 60 % in range, 2 % low and very lowPT states BP running a little high 157 /82 per the nurse when they come to the housePT states had decreased lantus to 16 units per last visit as she thought -but looks like it should have been 18 units Goes to [place] every few weeks to see MIL who has dementia.Other family members help out12/22: She just prior to 89rd birthday. PAST MEDICAL Hx (updated):Hx of HTN, heart block with pacemaker. Collapsed on vacation ([place])Intestinal surgery- diverticulitis.HTN- sees Miesha. Told of early kidney damage from diabetes. On losartan ().08/22: s/p partial pancreas and splenectomy (SPFLD). Increase in lantus. Off ozempic.Tumor found following GI sx (half pancreas removed); complicated with sepsis.08/23: LOC from low BG. At home- 1AM.05/23: Told it was a neuroendocrine tumor but without spread.05/23: Injured back- trying to lift something.12/22: No changes.09/22: To [place] 4-5 weeks ago for back. neuropathy and tingling on right. No insulin while in hospital and rehab. Trying to get BG back into range. Generally were over 250-300s. 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 [facility].08/23: Walks over a mile with dog (veto baum) every day. Lifts weights while watching TV.Weight 20# up since 03/2021.05/23: Was walking with dog (12) but (veto baum- 50#). Will get another (rescue collie).12/22: Walks dog- arm gets torn off . Might downsize.09/22: has walker- trying to do some. FAMILY Hx (updated):2 brothers passed: aug 2019 and september 2019NO KIDS. No family left Pt has had very low blood sugars and friend once found passed out from on floor. PTs biggest concern blood sugar doesnt see to consoude with what she is eating.PTs thyroid is borderline and PCP would like her to start something to help this. F/U for DMT2 (basal/bolus), HTN, lipids, fatigue Recalls BMD at [facility] couple of years ago.CDH:L1-L4= 1.0 (2018)Right hip= 1.0 (2018)Left hip= 1.2 (2018)Doesn't take calcium. Takes 2K vitamin D.- She thinks had more recently but none seen on portal. Not much dairy. lactose intolerant. Not taking calcium supplement.s Vitamin D- better in 05/21.Vit D= 47.5 (05/21) was 56 (04/19) On 2000 IU vitamin D (09/22; was 1000 in 12/22; was 500 in 05/23 and before).Had been on vitamin D 50K per week. VitD >60 in 08/19. Now on 2000 per day.PCP has checked fall 2018. Told it was little low Had been to [place] 2017: Chronic pain (shoulders not bad/hips/knees bad/back) a bit better.Hx depression/insomnia/ADHD. FATIGUE: ongoing x years.Energy a bit better (12/22 and 05/23). Better concentration.Exhausted with of MIL and helping with estate. Recognizes component of depressed (08/23).Had to give up so many things with pandemic. Running on empty . Ongoing but not as bad. Told her thyroid was borderline Often goes to bed at 2:30-3AM and gets up at 10AM. bkfst at 11AM. dinner at 5pm TSH= 4.07 (11/19); was 3.61 (02/18); was 2.24 (07/06); was 2.54; 171/94/50/102; creat= 1.1; ast/alt= 21/14;Labs in 05/21: No anemia. Vitamin D > 30. Has had diverticulitis- not like that. Lot of gas too. No exacerbating/alleviating factors (occ better with food).03/21: Pancreatic tumor found- told it was slow-growing CA. Had partial pancreatectomy and splenectomy.GI sx: Strong family hx of colon CA. Sees [facility]. Thinks last one was 4 years ago. Trying to be in bed by MN and asleep by 1AM (used to be 2-4AM). ROS:Hx sepsis after surgery in 03/21.No recent Hx of h/a.No SOB.No n/v. No abdominal painNo temperature intolerance.No CP/pressure. No fluttering/racing/pounding.CARDS is [facility]. Hx pacemaker. Total heart block. No dizziness with standing in AM. Fahad Knott MD [address] [place] [address], [place], [address], [facility] 09/22/2024 12:16:39 OBGyn Episode No OBEpisode recorded.
== END 2024-10-05 12:57 | disposition home or self-care (01) ==
LOC: HO.HNS 10:39
PROVIDERS: Visit Provider Physician Assistant
DX: M51.26 Other intervertebral disc displacement, lumbar region (principal)
CPT/HCPCS: 99204

== ENCOUNTER → 2024-10-05 10:39 | Outpatient (BNVA) | payer MEDICARE, SELFPAY | PROVIDERS: Visit Provider Physician Assistant | DX: M51.26 Other intervertebral disc displacement, lumbar region (principal) | CPT/HCPCS: 99202 ==

== ENCOUNTER 2025-01-07 08:46 | Day surgery (SDC) | payer MEDICARE, SELFPAY ==
--- OUTSIDE RECORDS SUMMARY | 2024-12-08 14:10 | XMS_ITS | Clinical Summary ---
Author Organization [facility], Address [address] [place] [address] Phone Care Team Providers Care Technical Producer Name Role Phone Sherine Osborn MD Primary Care Provider + [phone] Allergies Active Allergy Reactions Criticality Noted Date [...] did have some lab work done at [facility] and she should let me know if [...] kidney disease stage 3 10/28/2019 05/08/2021 Immunizations Immunization Administration Dates Next Due Hib (PRP-T) 03/03/2021 [...] 04/30/2019, 05/05/2018, Additional history exists Pneumococcal Vaccine: 50+ Years Completed 02/28/2021, 09/02/2019, 07/16/2017, Additional history exists Pneumococcal Vaccine: Peds (0 to 5 Years) and At-Risk Patients (6 to 49 Years) Discontinued 02/28/2021, 09/02/2019, 07/16/2017, Additional history exists Hepatitis B Vaccine Aged Out No longe r eligible based on patient's age to complete this topic Procedures Procedure Name Priority Date/Time Associated Diagnosis Comments LAB SOLE PAINTER Routine 08/29/2017 12:00 PM EST from Last 3 Months or Most Recently Relevant to Health Maintenance Results * Lab Regrind Mill Operator (08/29/2017 12:00 PM EST) Hemoglobin A1C 7.7 % [facility] 08/29/2017 12:0 0 PM EST [facility] Conversion LAB [id number] LICITED RESULTS Final Result [facility] from Last 3 Months or Most Recently Relevant to Health Maintenance Insurance Medicare [place] Care Teams Technical Producer Relationship Specialty Start Date End Date Sherine Osborn MD [address] [place] [address] PCP - General Family Medicine 05/08/21
[2024-12-24 12:23] VITALS: BP 136/57; PULSE 72; RESP 17; O2SAT 96; BMI 32.8
[2025-01-07] VITALS (8 sets, daily range): BP systolic 107–150; BP diastolic 36–64; PULSE 69–77; RESP 14–18; TEMP 36.4–36.6; O2SAT 96–100; BMI 33.0
--- NOTE | ~2025-01-07 | FL_ITS ---
EXAMINATION: FL GUIDANCE ONLY HISTORY: L4-5 far lateral extraforaminal discectomy COMPARISON: None available. TECHNIQUE: Fluoroscopy time: 0.1 minutes. Cumulative Dose: 6.50 mGy. DAP: 1.39 mGym2 Images: 14. FINDINGS: Fluoroscopic spot films of the lumbar spine demonstrate a probe directed toward the L4-5 intervertebral disc space from a posterior approach. FL/FL guidance in OR IMPRESSION: Fluoroscopy during procedure. Please see procedure report for additional information. Electronically signed by: Reyes Mccartney MD 01/07/2025 01:07 PM EDT
--- NOTE | 2025-01-07 07:39 | PM.DS ---
DS: Providers Provider Date of Service: 01/07/25 Date of discharge: 01/07/25 Primary care physician: Joan Haley MD Admitting clinician: Rigoberto Paulson DS: Diagnosis Discharge Diagnosis (1) Lumbar disc herniation: Status: Acute DS: Summary Time Attestation Discharge Coordination Time (in mins): 4 Quality: Safe Use of Opioids Does Pt have an Active Cancer Diagnosis on the Problem List?: No Quality: Stroke Does the patient have a stroke diagnosis?: No Physical Exam Vital Signs: Vital Signs: Last Vital Signs Pulse 72 12/24/24 12:23 Resp 17 12/24/24 12:23 BP 136/57 L 12/24/24 12:23 Pulse Ox 96 12/24/24 12:23 O2 Del Method Room Air 12/24/24 12:23 BMI result Body Mass Index 32.8 Discharge Plan Discharge Patient Disposition: Home, Self-Care Referrals: Joan Haley MD [Primary Care Provider, Internal Medicine] - 1 Week Discharge Medications: New docusate sodium [Colace] 100 mg capsule 100 mg PO BID Qty: 20 0RF oxycodone 5 mg tablet 5 mg PO Q4H PRN (Reason: pain) Qty: 20 0RF Rx Instructions: Partial Fill upon patient request. Continued losartan 50 mg tablet 100 mg PO DAILY gabapentin 100 mg capsule 200 mg PO TID insulin lispro 100 unit/mL insulin pen 6 - 16 unit subcut TID bupropion HCl 300 mg tablet extended release 24 hr 300 mg PO QAM insulin glargine [Lantus Solostar U-100 Insulin] 100 unit/mL (3 mL) insulin pen 20 unit subcut BEDTIME ascorbic acid (vitamin C) [Vitamin C] 500 mg Tablet 500 mg PO DAILY cholecalciferol (vitamin D3) [Vitamin D3] 50 mcg (2,000 unit) Capsule 50 mcg PO DAILY Discharge Orders: Discharge Order (Routine); Ordered 01/07/25 Ordered By: Tanner Angela Diet: Advance to usual diet Activity on Discharge: As tolerated Activity Restrictions/Additional Instructions: After your spinal surgery we ask you to observe the following restrictions/guidelines: Activity: It is normal to feel some discomfort as you increase your activity, but that will improve with time. We ask you avoid heavy lifting or acitivities that cause pain. As a general rule, 8lbs is a safe limit for lifting right after surgery. Walk as much as you feel comfortable but not to exhaustion. You will feel extra tired the first few days after surgery. Stay well hydrated. It is OK to walk up and down stairs You may return to driving when you are off narcotics (such as vicodin, oxycodone, dilaudid, etc), and you are back to normal functional capacity. If you have any concerns please check with office before driving. Return to work is specific to each patient and each surgery, so please speak with your doctor/PA at first follow up. Please bring paperwork such as FMLA at that time if you need it filled out. Medications: For optimum pain control, it is best to start with a combination of 500 mg of Tylenol every 4 hours with 600 mg of Motrin every 8 hours, and use narcotics as needed in between for breakthrough pain. We will give you a short supply of narcotics after surgery (usually one weeks worth). If you need more please call the office but do not use more than prescribed. You will need to give our office 48 hours notice if you need narcotics refilled and we do not fill narcotics on weekends or evenings. If you are on a narcotic, it is a good idea to take a stool softener such as colace or senna to avoid constipation If you take blood thinner such as aspirin, Plavix, Coumadin, Effient, Eliquis etc for conditions such as Afib, DVT, Pulmonary embolus, coronary disease, stents etc please speak with your surgeon about specific details as to when you can resume these medications. You can resume NSAIDs on post op day 1 (eg: Motrin, Naproxen, etc). Follow up: Please call the office, , after surgery to arrange a 3 week follow up for wound check. Wound Care: You may remove your dressing on the first day after surgery. ?You may ?leave open to air. Please do not remove the steri strips underneath. they will fall off on their own in one week. IT IS NORMAL FOR THE WOUND TO OOZE OR BE BLOODY FOR A FEW DAYS AFTER SURGERY. ?IF THIS HAPPENS JUST PLACE NEW DRESSING OVER IT TO AVOID STAINING CLOTHES. You may shower on post op day # 1 We ask that you do not let the water soak the wound. If it does get wet, just towel dry lightly. Please do not scrub your incision or place any type of chemical/ointment on the wound. No tub baths, pools or jacuzzis for one month. If you have any leaking or redness from your wound, or fevers, please call office Print Language: Gambian
--- NOTE | 2025-01-07 09:53 | P.HPSUR_ITS ---
Pre-Procedural Eval Section A - 24 Hr Update-Section A only Date of Service: 01/07/25 The patient is an INPATIENT: No Section B - Complete if H&P > 30 days Chief Complaint: Other intervertebral disc displacement, lumbar Details of Present Illness: Right leg pain Allergies: Allergies Allergy/AdvReac Type Severity Reaction Status Date / Time metoclopramide (From Reglan) Allergy Agitated Verified 12/24/24 12:12 ondansetron (From Zofran) Allergy Agitated Verified 12/24/24 12:12 Review of Systems Sugical H&P ROS: Negative: Constitution, Cardiovascular, Respiratory, Neurological, Psychiatric, Hem-Onc, Allergic/Immunologic, Gastrointestinal, Genitourinary, Musculoskeletal, Integumentary, Endocrine and Eyes/Ears/Nose/Throat Exam Surgical H&P Exam: Normal: HEENT, Normal: Heart, Normal: Lungs, Normal: Extremities, Normal: Abdomen, Normal: Skin and Normal: Neurological (Awake, a lert) Plan I have reviewed the history and physical and performed a pertinent physical examination on my patient. No changes have occurred unless specified. far lateral right L4-5 microdiskectomy Time Spent With Patient Time: Total time managing care of this patient today _5___ minutes.
[2025-01-07] MEDS: Lactated Ringers 1,000 ML 100 ML IVCONT (10:03)
--- NOTE | 2025-01-07 10:03 | HO.ANESPROP2 ---
Documented by User: Madie Rodriguez NP 01/06/25 08:47 HPI - Anesthesia Eval Consult details Narrative: 74yo F for Right L4-5 Far Lateral Extraforaminal Discectomy with Metrix Tubes, 01/07/25 No recent illness No CP/SOB with walking dog daily, free weights, cardio videos Vague report of agigtation with antiemetic, unsure of which medication (was a pill). Denies any previous problems with anesthesia. Follows [facility] for CHB s/p pacer, HTN/HLD. Stable at 10/2024 office visit with routine 6 month f/u. Surveillance echo done. CHB s/p pacer: insertion ~ 2011, generator change 2022 Pancreatic ca s/p whipple and splenectomy: 2021 DM: CGM, FBS ~ 100 PMFSH Active Problems Active Problems: All Active Problems Lumbar disc herniation (Acute) Past Medical History Medical History (Updated 12/24/24 @ 12:17 by Isela Jean RN) Arthritis Back pain Depression Numbness Obesity Hyperlipidemia Heart block Hx of cardiac pacemaker Pancreatic cancer HTN (hypertension) Diabetes Family History Family history of problems with anesthesia: No Surgical History Surgical History (Updated 12/24/24 @ 12:18 by Isela Jean RN) History of bowel resection Hx of tonsillectomy Hx of cholecystectomy H/O colonoscopy Hx of splenectomy History of Whipple procedure History of Problems with Anesthesia: No Social History Social History Are you a primary animal daycare provider to a significant other at home: No Do you presently have visiting nurse or other home services: No Patient Tobacco Use Status: Never used Tobacco Use of substances other than those prescribed or required for medical reasons: No Have you been hit, kicked, punched, or otherwise hurt by someone within the past year? If so, by whom?: No Are you DNR?: No Advance Directives: No Advance Directives Information Provided: Yes Advance Directives on File: No Patient : No : No Poor oral hygiene: No Meds Allergies Allergy/AdvReac Type Severity Reaction Status Date / Time metoclopramide (From Reglan) Allergy Agitated Verified 12/24/24 12:12 ondansetron (From Zofran) Allergy Agitated Verified 12/24/24 12:12 Home Medications ?Medication ?Instructions ?Recorded ?Confirmed ?Last Taken ?Type bupropion HCl 300 mg 24 hr tablet, 300 mg PO QAM 12/23/24 12/23/24 Unknown History extended release gabapentin 100 mg capsule 200 mg PO TID 12/23/24 12/23/24 Unknown History insulin glargine 100 unit/mL (3 20 unit subcut BEDTIME 12/23/24 12/23/24 Unknown History mL) subcutaneous pen (Lantus Solostar U-100 Insulin) insulin lispro 100 unit/mL 6 - 16 unit subcut TID 12/23/24 12/23/24 Unknown History subcutaneous pen losartan 50 mg tablet 100 mg PO DAILY 12/23/24 12/24/24 Unknown History ascorbic acid (vitamin C) 500 mg 500 mg PO DAILY 12/24/24 12/24/24 Unknown History tablet (Vitamin C) cholecalciferol (vitamin D3) 50 50 mcg PO DAILY 12/24/24 12/24/24 Unknown History mcg (2,000 unit) capsule (Vitamin D3) Exam Height,Weight and Vital Signs: Height 5 ft 3 in Weight 83.915 kg Last Vital Signs Pulse 72 12/24/24 12:23 Resp 17 12/24/24 12:23 BP 136/57 L 12/24/24 12:23 Pulse Ox 96 12/24/24 12:23 O2 Del Method Room Air 12/24/24 12:23 Pertinent Lab Results Pertinent Lab Results: 08/2024 outside lab report: CBC ok except mild elevated plts @ 521 BMP ok A1C =6.3 10/2024 Narrative Narrative: EKG 08/2024 A-sensed V-paced @ 88 Pacer Interrogation 10/2024 on chart 100% Vpaced ECHO 12/2024 Airway Mallampati Class: II TM Dist: >3cm Neck ROM: Full Partial: Lower Loose/Missing/Broken Teeth: Yes (Cracked right upper molar) Heart: RRR Lungs: CTAB Assessment and Plan Assessment Anesthesia Assessment: Anesthesia Plan Discussed and PAT Visit Final Anesthetic Review Family History of Problems with Anesthesia: No History of Problems with Anesthesia: No Documented by User: Loretta DO Katelyn 01/07/25 10:05 HPI - Anesthesia Eval Consult details Narrative: 74yo F for Right L4-5 Far Lateral Extraforaminal Discectomy with Metrix Tubes, 01/07/25 No recent illness No CP/SOB with walking dog daily, free weights, cardio videos Vague report of agitation with antiemetic, unsure of which medication (was a pill). Denies any previous problems with anesthesia. Follows [facility] for CHB s/p pacer, HTN/HLD. Stable at 10/2024 office visit with routine 6 month f/u. Surveillance echo done. CHB s/p pacer: insertion ~ 2011, generator change 2022 Pancreatic ca s/p whipple and splenectomy: 2021 DM: CGM, FBS ~ 100 PMFSH Past Medical History Medical History (Updated 12/24/24 @ 12:17 by Isela Jean RN) Arthritis Back pain Depression Numbness Obesity Hyperlipidemia Heart block Hx of cardiac pacemaker Pancreatic cancer HTN (hypertension) Diabetes Family History Family history of problems with anesthesia: No Surgical History Surgical History (Updated 12/24/24 @ 12:18 by Isela Jean RN) History of bowel resection Hx of tonsillectomy Hx of cholecystectomy H/O colonoscopy Hx of splenectomy History of Whipple procedure History of Problems with Anesthesia: No Social History Social History Are you a primary animal daycare provider to a significant other at home: No Do you presently have visiting nurse or other home services: No Patient Tobacco Use Status: Never used Tobacco Use of substances other than those prescribed or required for medical reasons: No Have you been hit, kicked, punched, or otherwise hurt by someone within the past year? If so, by whom?: No Are you DNR?: No Advance Directives: No Advance Directives Information Provided: Yes Advance Directives on File: No Patient : No : No Poor oral hygiene: No Meds Allergies Allergy/AdvReac Type Severity Reaction Status Date / Time metoclopramide (From Reglan) Allergy Agitated Verified 12/24/24 12:12 ondansetron (From Zofran) Allergy Agitated Verified 12/24/24 12:12 Home Medications ?Medication ?Instructions ?Recorded ?Confirmed ?Last Taken ?Type bupropion HCl 300 mg 24 hr tablet, 300 mg PO QAM 12/23/24 12/23/24 Unknown History extended release gabapentin 100 mg capsule 200 mg PO TID 12/23/24 12/23/24 Unknown History insulin glargine 100 unit/mL (3 20 unit subcut BEDTIME 12/23/24 12/23/24 Unknown History mL) subcutaneous pen (Lantus Solostar U-100 Insulin) insulin lispro 100 unit/mL 6 - 16 unit subcut TID 12/23/24 12/23/24 Unknown History subcutaneous pen losartan 50 mg tablet 100 mg PO DAILY 12/23/24 12/24/24 Unknown History ascorbic acid (vitamin C) 500 mg 500 mg PO DAILY 12/24/24 12/24/24 Unknown History tablet (Vitamin C) cholecalciferol (vitamin D3) 50 50 mcg PO DAILY 12/24/24 12/24/24 Unknown History mcg (2,000 unit) capsule (Vitamin D3) Exam Exam Date and Time: 01/07/25 1000 Height,Weight and Vital Signs: Height 5 ft 3 in Weight 83.915 kg Last Vital Signs Pulse 72 12/24/24 12:23 Resp 17 12/24/24 12:23 BP 136/57 L 12/24/24 12:23 Pulse Ox 96 12/24/24 12:23 O2 Del Method Room Air 12/24/24 12:23 Vital Signs Pulse Rate 72 12/24/24 12:23 Respiratory Rate 17 12/24/24 12:23 Blood Pressure 136/57 L 12/24/24 12:23 Pulse Oximetry 96 12/24/24 12:23 Oxygen Delivery Method Room Air 12/24/24 12:23 Temperature 97.5 F 01/07/25 09:31 Pulse Rate 77 01/07/25 09:31 Respiratory Rate 16 01/07/25 09:31 Blood Pressure 135/55 L 01/07/25 09:31 Pulse Oximetry 96 01/07/25 09:31 Oxygen Delivery Method Room Air 01/07/25 09:31 Airway Mallampati Class: II TM Dist: >3cm Neck ROM: Full Loose/Missing/Broken Teeth: Yes (Cracked right upper molar) Heart: S1S2 Assessment and Plan Assessment Anesthesia Assessment: Anesthesia Plan Discussed and Chart Reviewed Final Anesthetic Review Family History of Problems with Anesthesia: No History of Problems with Anesthesia: No NPO: Yes ASA Class: III Final Preanesthetic Review: No Changes in Pt Med Stat, Meds/Allgs Chart Reviewed, Consent Obtained/Reviewed and Anes Risks/Benef Reviewed Patient Risk: Intermediate Procedure Risk: Intermediate Anesthetic Plan Anesthetic Plan: GA and Agree w/ Assess. and Plan Disposition: Standard PACU
--- NOTE | 2025-01-07 12:22 | P.OP_ITS ---
Operative Note Operative Note Date of Service: 01/07/25 Narrative: Preop diagnosis: lumbar disc herniation L4-5, extraforaminal ( far lateral) with lumbar radiculopathy Postop diagnosis: same Procedure: Right L4-5 lumbar microdiskectomy, extraforaminal approach with microscope Description of procedure: This patient is suffering from a right L4 lumbar radiculopathy due to an L4-5 extraforaminal lumbar disc herniation compressing the L4 nerve root. The patient was offered a lumbar microdiskectomy through an extraforaminal approach. The procedure and complications were explained. The patient was consented. The patient was brought to the operating room and endotracheally intubated. The patient was turned in the prone position on Damir frame. Prepping and draping was done followed by time-out. The lateral border of the L4-5 facet joint was marked on the skin with x-ray. A right paramedian incision was made. The muscle fascia was opened. Sequential dilators were inserted followed by a 18 mm Metrx tube. the lateral border of the L4-5 facet joint as well as the transverse process of L L4 and L L5 were exposed. The microscope was brought in. The lateral part of facet joint was resected with a high-speed drill. The medial border of the L L5 pedicle was jacob ntified as well as the foramen. I went into the Kambin's triangle and exposed the intervertebral disc. An annulotomy was done after which with a straight and curved pituitary several fragments of disc herniation were removed. A nerve hook could be easily passed under the L L4 nerve root as sign of adequate decompression. Physician commercial escrow assistant took over the procedure and performed hemostasis and closure of the incision in 2 layers. Steri-Strips were used to approximate the incision. An Oppsite with tegaderm was used to cover the incision. All sponge and needle counts were correct. The patient was extubated and transported in stable condition to recovery room. Surgeon: Rigoberto Paulson MD Assist: vicki Baig Anesthesia: general Estimated blood loss: minimal Surgical time: 60 minutes Specimen: none Deposition: Discharge home
== END 2025-01-07 14:14 | disposition home or self-care (01) ==
LOC: HO.SSS 08:46
PROVIDERS: PCP Family Medicine; Visit Provider Neurological Surgery
PROC: (CPT 63056; principal; 2025-01-07 12:00)
DX: M51.16 Intervertebral disc disorders with radiculopathy, lumbar region (principal); E11.9 Type 2 diabetes mellitus without complications; I10 Essential (primary) hypertension; I45.9 Conduction disorder, unspecified; Z95.0 Presence of cardiac pacemaker; Z90.81 Acquired absence of spleen; Z85.07 Personal history of malignant neoplasm of pancreas; Z79.4 Long term (current) use of insulin; Z79.1 Long term (current) use of non-steroidal anti-inflammatories (NSAID); Z79.899 Other long term (current) drug therapy; Z99.89 Dependence on other enabling machines and devices; Z98.890 Other specified postprocedural states
CPT/HCPCS: 63056; J0131; J0690; J1885; J2003; J2004; J2250; J2704; J3010

== ENCOUNTER → 2025-01-07 08:46 | Outpatient (BNV) | payer MEDICARE, SELFPAY | PROVIDERS: PCP Family Medicine; Visit Provider Neurological Surgery | DX: M51.26 Other intervertebral disc displacement, lumbar region (principal) | CPT/HCPCS: 63056; 99499 ==

== ENCOUNTER 2025-02-01 13:42 | Outpatient (AMB) | payer MEDICARE, SELFPAY ==
--- NOTE | 2025-02-01 13:45 | HO.SPINEOV ---
Intake Visit Reasons: 1st post op Intake Note: Ms. Donaldson is here today for her 1st post-op visit. Duplicator Punch Set Up Operator Required: No Allergies metoclopramide (From Reglan) Allergy (Verified 12/24/24 12:12) Agitated ondansetron (From Zofran) Allergy (Verified 12/24/24 12:12) Agitated Assessment & Plan Assessment & Plan (1) S/P lumbar microdiscectomy: Code(s): Z98.890 - Other specified postprocedural states Category: Medical Plan Procedure: Right L4-5 lumbar microdiskectomy Tomeka is a pleasant 75 year old female that comes in today for her 1st postoperative visit after a right-sided L4-[address] Paulson a few weeks ago. Thankfully, she reports that the bulk of her symptoms have resolved since her surgery. She states that about 85% of the shooting pain down her right leg has resolved, and she feels overall much better than she did prior to surgery. She does still report some numbness over her right anterior tibialis, and we discussed how this may be a sign of nerve damage, or may gradually improve as she heals from the surgery. No new neurological deficits. The patient ambulates well and rises from a seated position without difficulty. Her posterior incision site is closed and well healing. I would like to follow up with the patient again in 6 weeks for her 2nd postoperative visit. José Manuel Paulson MD,PhD [facility] Coding Level of Care Code Global (56309) Diagnoses S/P lumbar microdiscectomy Z98.890
--- OUTSIDE RECORDS SUMMARY | 2025-02-01 13:52 | XMS_ITS | Clinical Summary ---
Author Organization [facility], Address [address] [facility] [address] [facility] [address] [place] [address] Phone Care Team Providers Care Grain Cleaner Name Role Phone Sherine Osborn MD Primary Care Provider + [phone] Allergies Active Allergy Reactions Criticality Noted Date [...] did have some lab work done at [facility] and she should let me know if [...] 68 05/08/2021 2:23 PM EST Temperature 36.7 C (98 F) 11/20/2018 12:00 PM EDT Respiratory Rate 14 [...] Diabetes: Visual Foot Exam 09/21/2019 Influenza Vaccine (#1) 2025 0, 04/30/2019, 05/05/2018, Additional history exists Pneumococcal Vaccine: 50+ Years Completed 02/28/2021, 09/02/2019, 07/16/2017, Additional history exists Pneumococcal Vaccine: Peds (0 to 5 Years) and At-Risk Patients (6 to 49 Years) Discontinued 02/28/2021, 09/02/2019, 07/16/2017, Additional history exists Hepatitis B Vaccine Aged Out No longe r eligible based on patient's age to complete this topic Procedures Procedure Name Priority Date/Time Associated Diagnosis Comments LAB REED WORKER Routine 08/29/2017 12:00 PM EST from Last 3 Months or Most Recently Relevant to Health Maintenance Results * Lab Advertising Analyst (08/29/2017 12:00 PM EST) Hemoglobin A1C 7.7 % KCA 08/29/2017 12:0 0 PM EST Kca Conversion LAB [id number] LICITED RESULTS Final Result [facility] from Last 3 Months or Most Recently Relevant to Health Maintenance Insurance Medicare [facility] Care Teams Grain Cleaner Relationship Specialty Start Date End Date Sherine Osborn MD [address] [place] [address] PCP - General Family Medicine 05/08/21
== END 2025-02-01 14:59 | disposition home or self-care (01) ==
LOC: HO.HNS 13:43
PROVIDERS: PCP Family Medicine; Visit Provider Physician Assistant
DX: Z98.890 Other specified postprocedural states (principal)
CPT/HCPCS: 99024

== ENCOUNTER → 2025-02-01 13:42 | Outpatient (BNVA) | payer MEDICARE, SELFPAY | PROVIDERS: PCP Family Medicine; Visit Provider Physician Assistant | DX: Z47.89 Encounter for other orthopedic aftercare (principal); Z98.890 Other specified postprocedural states | CPT/HCPCS: 99212 ==

== ENCOUNTER 2025-03-18 11:14 | Outpatient (AMB) | payer MEDICARE, SELFPAY ==
--- NOTE | 2025-03-18 11:26 | A.SPINEOV_ITS ---
Intake Visit Reasons: 2nd post op Intake Note: Ms. Donaldson is here today for her 2nd post op. Speed Operator Required: No Allergies metoclopramide (From Reglan) Allergy (Verified 12/24/24 12:12) Agitated ondansetron (From Zofran) Allergy (Verified 12/24/24 12:12) Agitated Assessment & Plan Assessment & Plan (1) S/P lumbar microdiscectomy: Code(s): Z98.890 - Other specified postprocedural states Category: Surgical Plan Procedure: Right L4-5 lumbar microdiskectomy Tomeka is a pleasant 75 year old female that comes in today for her 2nd postoperative visit after a right-sided L4-[address] Paulson a few weeks ago. She reports that her pain has continued to maintain as fairly well controlled since her operation. She has been completing ADLs without much issue. She does continue to report some numbness over her right- sided anterior tibialis. We discussed the postoperative healing course, and I answered all questions that she had. No new neurological deficits. The patient ambulates well and rises from a seated position without difficulty. There is no need for continued routine follow up with Tomeka. José Manuel Paulson MD,PhD [facility] Coding Level of Care Code Global (04286) Diagnoses S/P lumbar microdiscectomy Z98.890
--- OUTSIDE RECORDS SUMMARY | 2025-03-18 12:02 | XMS_ITS | Encounter Summary ---
Author Organization [facility] Address [address] [place] [address] Phone Care Team Providers Care Business Continuity Global Director Name Role Phone Jack Buitrago MD Unavailable Joan Haley MD Unavailable [phone] Fahad Knott MD Unavailable Gilmer Chahal MD Unavailable Hasmukh Rubio MD Unavailable Joan Haley MD Primary Care Provider + Encounter Details Date Type Department Care Team (Late st Contact Info) Description 03/18/2025 12:02 PM EDT Hospital Encounter [facility] [address] [place] [address] Rosio Small CNP [address] [facility], 1st [place] [address] [email or web address] Social History Tobacco Use Types Packs/Day Years Used Date Smoking Tobacco: Never Smokeless Tobacco: Never Alcohol Use Standard Drinks/Week Comments Never 0 (1 standard drink = 0.6 oz pur e alcohol) Home Health Assessment: Transportation Answer Date Recorded Lack of Transportation (Medical) No 10/16/2024 Lack of Transportation (Non-Medical) No 10/16/2024 Patient Unable or Declines to Respond No 10/16/2024 Child or Family Care Answer Date Record ed Do you have problems with on e of the following making it difficult for you to work, study, or receive health care? No 09/14/2020 Education Answer Date Recorded Are you interested in more education? Not on araceli e 10/25/2022 Are you concerned about learning? Not on file 10/25/2022 No 10/25/2022 No 10/25/2022 Food Answer Date Recorded Within the past 6 months we worried whether our food would run out before we got money to buy more. Never True 09/14/2020 Within the past 6 months the food we bought just didn't last and we didn't have enough money to get more. Never True Paying for Meds Answer Date Recorded Do you have trouble paying for medicines? No 09/14/2020 Paying Utility Bills Answer Date Record ed Do you have trouble paying your heating or elect ricity bill? No 09/14/2020 Transportation Answer Date Recorded Has the lack of transportati on kept you from medical appointments or from getting medications? No 09/14/2020 Digital Access Answer Date Recorded No 11/20/2022 No 11/20/2022 Reliable internet access at home? Not on file 11/20/2022 Device with a working camera? Not on file Intimate Partner Violence Answer Date R ecorded Are you denied basic needs s uch as food, clothing, or medical care? No 09/07/2024 In the past 12 months have y ou been in a relationship with a person who hurts, threatens, or tries to control you? No 09/07/2024 Are you denied basic needs s uch as food, clothing, or medical care? No 09/07/2024 In the past 12 months have y ou been in a relationship with a person who hurts, threatens, or tries to control you? No 09/07/2024 Education Answer Date Recorded What is the highest level of school you have completed or the highest degree you have received? 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 Not on file Not on file documented as of this encounter Plan of Treatment Upcoming Encounters Date Type Department Care Team (Late st Contact Info) Description 03/19/2025 4:15 PM EDT Appointment [facility], [address] [address] Fahad Knott MD [address] [place] [phone] [email or web address] 05/04/2025 11:40 AM EST Office Visit [facility] [address] [facility] 3rd Floor, [address] [place] [address] Josias Vasquez MD [address] [place] [phone] [email or web address] [email or web address] Results Name Type Priority Associated Diagnoses Date /Time C-peptide Lab Routine Type 2 diabetes mellitus with hypoglycemia without coma, with long-term current use of insulin 03/18/2025 12:34 PM EDT Glucose, fasting Lab Routine Type 2 diabetes mellitus with hypoglycemia without coma, with long-term current use of insulin 03/18/2025 12:34 PM EDT Miscellaneous lab test Lab Routine Type 2 diabetes mellitus with hypoglycemia without coma, with long-term current use of insulin 03/18/2025 12:39 PM EDT Scheduled Orders Name Type Priority Associated Diagnoses Orde r Schedule C-peptide Lab Routine Type 2 diabetes mellitus with hypoglycemia without coma, with long-term current use of insulin As Needed for 1 Occurrences starting 03/18/2025 until 03/18/2025 Glucose, fasting Lab Routine Type 2 diabetes mellitus with hypoglycemia without coma, with long-term current use of insulin As Needed for 1 Occurrences starting 03/18/2025 until 03/18/2025 documented as of this encounter Procedures Procedure Name Priority Date/Time Associated Diagnosis Comments MISCELLANEOUS LAB TEST Routine 5 12:39 PM EDT Type 2 diabetes mellitus with hypoglycemia without coma, with long-term current use of insulin documented in this encounter Visit Diagnoses Diagnosis Type 2 diabetes mellitus with hypoglycemia without coma, with long-term current use of insulin documented in this encounter Additional Health Concerns Assessment Noted Time PHQ-2 Depression Total Score: 2 03/12/20 24 11:24 PM EDT documented as of this encounter Care Teams Business Continuity Global Director Relationship Specialty Start Date End Date Joan Haley MD [address] [place] [address], [address] [address] [email or web address] PCP - General Family Medicine 11/28/23 Jack Buitrago MBBS, MD [address] [place] [phone] [email or web address] Primary Oncologist Medical Oncology 11/17/20 Joan Haley MD [address] [place] [address] [email or web address] Insurance Assigned Provider 10/05/23 Fahad Knott MD [address] [place] [phone] [email or web address] Endocrinology 11/27/22 Gilmer Chahal MD [address] [place] [address] [email or web address] Gastroenterology 11/27/22 Hasmukh Rubio MD [address] [place] [address] [email or web address] Cardiology 11/27/22 documented as of this encounter Additional Source Comments The information contained in this document represents components of the legal health record. It is not the complete legal health record.[facility]
--- OUTSIDE RECORDS SUMMARY | 2025-03-18 13:30 | XMS_ITS | Encounter Summary ---
Author Organization [facility] Address [address] [facility] [address] [place] [address] Phone Care Team Providers Care Sales Counselor Name Role Phone Aren Henao MD Unavailable Petey Motta MD Unavailable Colton Deleon MD Unavailable Sherry Burris MD Unavailable Michelle Douglas MD Unavailable Rd Street MD Unavailable [phone] [address] Bravo SHORE HAND DREDGE OR BARGE Unavailable Ciarra Dunham SHORE HAND DREDGE OR BARGE Primary Care Provider Prosper Patrick MD Unavailable Sherine Osborn MD Primary Care Provider Jack Buitrago, Unavailable Prosper Patrick MD Unavailable Sherine Osborn MD Unavailable [phone] Joan Haley MD Primary Care Provider + Joan Haley MD Unavailable [phone] Joan Haley MD Primary Care Provider + Fahad Knott MD Unavailable Gilmer Chahal MD Unavailable Hasmukh Rubio MD Unavailable [phone] Joan Haley MD Primary Care Provider + RoshanKalpana OT Unavailable [phone] Encounter Details Date Type Department Care Team (Late st Contact Info) Description 06/04/2019 Ancillary Orders Non-Invasive Cardiology [address] [place] [address] Aren Henao MD [address] [place] [address] [email or web address] Complete heart block Social History Tobacco Use Types Packs/Day Years Used Date Smoking Tobacco: Never Smokeless Tobacco: Never Alcohol Use Standard Drinks/Week Comments No 0 (1 standard drink = 0.6 oz pur e alcohol) Education Answer Date Recorded What is the highest level of school you have completed or the highest degree you have received? 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, MAID CLEANING COOKING, FEMI) 07/30/2018 Comments No Sex and Gender [...] Info) Description 03/19/2025 4:15 PM EDT Appointment [facility], [facility] [address] [place] [address] Fahad Knott MD [address] [place] [address] [email or web address] 05/04/2025 11:40 AM EST Office Visit [facility] [address] 3rd [address], [address] [place] [address] Josias Vasquez MD [address] [place] [phone] [email or web address] documented as of this encounter Results * DEVICE CHECK: PPM REMOTE INTERROGATION WITH PAPER FOLDING MACHINE OPERATOR REVIEW (10/05/2019 9:28 PM EDT) Narrative Aren Henao MD - 10/07/2019 12:22 PM EDT Reason for appointment: Remote pacemaker interrogation HPI: Routine 3 month remote pacemaker interrogation. No device related complaints. Indication for device: CHB. Examination: Device type: Pacemaker Instructional Materials Director: Medtronic Mode: AAI-DDD LRL/UPL: 70/140 bpm Mode switches: 0 High V rates: 0 Thresholds, impedances, and sensing stable. Atrial pacin.7% Ventricular pacin% Battery: 2.5 yrs Additional comments: Device functioning appropriately. Programmed MVP; pacing 100%, ? Reprogram to DDD at next in office visit Normal device function. Patient to follow-up for continued monitoring every 3 months. Report prepared by Waqas Quinteros RN Procedure Note Aren Henao MD - 10/07/2019 Reason for appointment: Remote pacemaker interrogation HPI: Routine 3 month remote pacemaker interrogation. No device relatedcomplaints. Indication for device: CHB. Examination: Device type: Pacemaker Instructional Materials Director: Medtronic Mode: AAI-DDD LRL/UPL: 70/140 bpm Mode switches: 0 High V rates: 0 Thresholds, impedances, and sensing stable. Atrial pacin.7% Ventricular pacin% Battery: 2.5 yrs Additional comments: Device functioning appropriately. Programmed MVP;pacing 100%, ? Reprogram to DDD at next in office visit Normal device function. Patient to follow-up for continued monitoringevery 3 months. Report prepared by Waqas Quinteros RN us Aren Henao MD [facility] ORDER MOHIT Final Result documented in this encounter Visit Diagnoses Diagnosis Complete heart block Atrioventricular block, complete Complete heart block Atrioventricular block, complete documented in this encounter Additional Health Concerns Infection Onset Date Last Indicated Resolved Time CoV-Risk 03/26/2021 03/26/2021 04/05/2021 1:23 AM EDT CoV-Risk 03/28/2022 03/28/2022 04/08/2022 1:22 AM EDT CoV-Risk Comment:Per Ambulatory Triage Form 07/10/2023 07/10/202307/21 1:22 AM EST CoV-Risk 09/07/2024 09/07/2024 09/18/2024 1:21 AM EDT documented as of this encounter Care Teams Sales Counselor Relationship Specialty Start Date End Date Ciarra Dunham CNP [address] [place] [phone] PCP - General 05/28/17 09/13/20 Sherine Osborn MD [address] [place] [phone] PCP - General Family Medicine 09/14/20 11/21/21 Joan Haley MD [address] [place] [phone] PCP - General Family Medicine 11/22/21 11/26/22 Joan Haley MD [address] [place] [phone] [email or web address] PCP - General Family Medicine 11/27/22 11/27/23 Joan Haley MD [address] [place] [address] [address] [place] [address] [email or web address] PCP - General Family Medicine 11/28/23 Aren Henao MD [address] [place] [address] [email or web address] Historical LMR Provider 04/20/17 09/13/20 Petey Motta MD [address] [place] [address] [email or web address] Historical LMR Provider 04/20/17 09/13/20 Colton Deleon MD [address] [facility] [place] [address] [email or web address] Historical LMR Provider 04/20/17 Sherry Burris MD [address] [facility], [address] [place] [address] [email or web address] Historical LMR Provider 04/20/1708/29 Michelle Douglas MD [address] [facility], 2nd [place] [address] [email or web address] Historical LMR Provider 04/20/1709/[address] MD [address] [facility] [place] [address] Historical LMR Provider 04/20/17 Mateusz Bravo CNP [address] [facility], 2nd [place] [address] Historical LMR Provider 04/20/17 09/13/20 Prosper Patrick MD [address] [place] [address] [address] [place] [address] Insurance Assigned Provider 10/07/19 09/13/20 Jack Buitrago MBBS, MD [address] [place] [phone] [email or web address] Primary Oncologist Medical Oncology 11/17/20 Prosper Patrick MD [address] [facility] [address] [place] [address] Insurance Assigned Provider 10/07/19 10/07/21 Sherine Osborn MD [address] [facility] [address] [place] [address] Insurance Assigned Provider 10/07/21 10/06/22 Joan Haley MD [address] [place] [address] [address] [place] [address] Insurance Assigned Provider 10/05/23 Fahad Knott MD [address] [place] [phone] [email or web address] Endocrinology 11/27/22 Gilmer Chahal MD [address] [place] [phone] [email or web address] Gastroenterology 11/27/22 Hasmukh Rubio MD [address] [place] [phone] Cardiology 11/27/22 Kalpana Islas, OT [address] [place] [address] [email or web address] Transitions Geological ScoutProgramming Internship Therapy 08/13/24 08/24/24 documented as of this encounter Additional Source Comments The information contained in this document represents components of the legal health record. It is not the complete legal health record.[facility]
--- OUTSIDE RECORDS SUMMARY | 2025-03-18 13:30 | XMS_ITS | Encounter Summary ---
Author Organization [facility] Address [address] [place] [address] [place] [address] Phone Care Team Providers Care Screedman/Laborer Name Role Phone Aren Henao MD Unavailable Ciarra Dunham TIME STUDY CLERK Unavailable [phone] Pcp, Unknown Primary Care Provider Unavailabl Ian Willis MD Unavailable Ebony Childs PA-C Unavailable Petey Motta MD Unavailable Colton Deleon MD Unavailable Sherry Burris MD Unavailable Michelle Douglas MD Unavailable Rd Street MD Unavailable [phone] Mateusz Bravo TIME STUDY CLERK Unavailable Unknown, Unknown Primary Care Provider Ciarra Lund CNP Primary Care Provider Prosper Patrick MD Unavailable [phone] Prosper Patrick MD Unavailable Sherine Osborn MD Primary Care Provider Jack Buitrago MD Unavailable [phone] Prosper Patrick MD Unavailable [phone] Sherine Osborn MD Unavailable Joan Haley MD Primary Care Provider + Joan Haley MD Unavailable [phone] Joan Haley MD Primary Care Provider + Fahad Knott MD Unavailable [phone] Gilmer Chahal MD Unavailable Hasmukh Rubio MD Unavailable Joan Haley MD Primary Care Provider + Kalpana Islas OT Unavailable Encounter Details Date Type Department Care Team (Latest Contact Info) Description 05/09/2017 Ancillary Orders [facility] Department [address] [place] [address] Jeremiah Whiteside MD [address] [place] [address], 3 [place] [address] [email or web address] Essential (primary) hypertension; Hyperlipidemia, unspecified hyperlipidemia type Social History Tobacco Use Types Packs/Day Years Used Date Smoking Tobacco: Never Assessed Comments Unknown Sex and Gender Information Value Date Recorded Sex Assigned at Female 09/14/2020 9:15 AM EDT Legal Sex Female 10:01 PM EDT Gender Identity Female 08/31/2024 10:46 AM EST Sexual Orientation Lesbian or Mercado 09/14/2020 9: 15 AM EDT documented as of this encounter Plan of Treatment Upcoming Encounters Date Type Department Care Team (Late st Contact Info) Description 03/19/2025 4:15 PM EDT Appointment [address] [address] Fahad Knott MD [address] [place] [address] 05/04/2025 11:40 AM EST Office Visit [facility] 3rd Floor, [address] [place] [address] Josias Vasquez MD [address] [place] [address] [email or web address] documented as of this encounter Results * US Kidneys (05/31/2017 12:18 PM EST) Anatomical Region Laterality Modality Abdomen, Kidney Ultrasound 05/31/2017 12:2 2 PM EST Impressions 05/31/2017 12:55 PM EST Unremarkable ultrasound evaluation of the kidneys. No significant asymmetry, parenchymal loss, or hydronephrosis is evident. S/S: Essential primary hypertension, hyperlipidemia POS - [id number] Narrative 05/31/2017 12:55 PM EST COMPARISON: None FINDINGS: The right kidney measures 10.1 x 4.3 cm the left kidney measures 9.9 x 4.9 cm. No hydronephrosis or nephrolithiasis is seen. No significant renal parenchymal loss is noted. No perinephric fluid is seen. Procedure Note Aaron Anton MD - 05/31/2017 COMPARISON: None FINDINGS: The right kidney measures 10.1 x 4.3 cm the left kidney measures 9.9 x 4.9cm. No hydronephrosis or nephrolithiasis is seen. No significant renalparenchymal loss is noted. No perinephric fluid is seen. IMPRESSION: Unremarkable ultrasound evaluation of the kidneys. No significantasymmetry, parenchymal loss, or hydronephrosis is evident. S/S: Essential primary hypertension, hyperlipidemia POS - [id number] us Jeremiah Whiteside MD IMKala RENAL Final Result documented in this encounter Visit Diagnoses Diagnosis Essential (primary) hypertension Unspecified essential hypertension Hyperlipidemia, unspecified hyperlipidemia type Essential (primary) hypertension Unspecified essential hypertension Hyperlipidemia, unspecified hyperlipidemia type documented in this encounter Additional Health Concerns Infection Onset Date Last Indicated Resolved Time CoV-Risk 03/26/2021 03/26/2021 04/05/2021 1:23 AM EDT CoV-Risk 03/28/2022 03/28/2022 04/08/2022 1:22 AM EDT CoV-Risk Comment:Per Ambulatory Triage Form 07/10/2023 07/10/202307/21 1:22 AM EST CoV-Risk 09/07/2024 09/07/2024 09/18/2024 1:21 AM EDT documented as of this encounter Care Teams Screedman/Laborer Relationship Specialty Start Date End Date Pcp, Unknown PCP - General 04/20/17 05/16/17 Unknown, Unknown, 15 [facility], 2nd [place] [address] PCP - General 05/18/17 05/27/17 Ciarra Dunham, PHILIPP [address] [place] [address] [place] [address] [email or web address] PCP - General 05/28/17 09/13/20 Sherine Osborn MD [address] [place] [address] [email or web address] PCP - General Family Medicine 09/14/20 11/21/21 Joan Haley MD [address] [address] [email or web address] PCP - General Family Medicine 11/22/21 11/26/22 Joan Haley MD [address] [place] [address] [email or web address] PCP - General Family Medicine 11/27/22 11/27/23 Joan Haley MD [address] [place] [address], [address] [place] [address] [email or web address] PCP - General Family Medicine 11/28/23 Aren Henao MD [address] [place] [address] [email or web address] Historical LMR Provider 04/20/17 09/13/20 Ciarra Dunham CNP [address] [place] [address] [address] [place] [address] [email or web address] Historical LMR Provider 04/20/17 Ian Ortiz MD [address] [place] [address], [address] [place] [address] [email or web address] Historical LMR Provider 04/20/17 Ebony Childs PA-C [address] [place] [address] [email or web address] Historical LMR Provider 04/20/17 Petey Motta MD [address] [place] [address] [email or web address] Historical LMR Provider 04/20/17 09/13/20 Colton Deleon MD [address] [place] [address] [address] [place] [address] Historical LMR Provider 04/20/17 Sherry Burris MD 22 [facility], [address] [place] [address] Historical LMR Provider 04/20/1708/29 Michelle Douglas MD 15 [facility], 2nd [place] [address] Historical LMR Provider 04/20/1709/[address] MD 22 [facility], [address] [place] [address] Historical LMR Provider 04/20/17 Mateusz Bravo, TIME STUDY CLERK 15 [facility], [address]nd [place] [address] Historical LMR Provider 04/20/17 09/13/20 Prosper Patrick MD [address] [place] [address] [place] [address] Insurance Assigned Provider 09/28/17 01/10/19 Prosper Patrick MD [address] [place] [address] [place] [address] Insurance Assigned Provider 10/07/19 09/13/20 Jack Buitrago MBBS, MD [address] [place] [address] [email or web address] Primary Oncologist Medical Oncology 11/17/20 Prosper Patrick MD 14 [facility] [address] [place] [address] Insurance Assigned Provider 10/07/19 10/07/21 Sherine Osborn MD 15 [facility] 201 [place] [address] Insurance Assigned Provider 10/07/21 10/06/22 Joan Haley MD [address] [place] [address] 7 [place] [address] Insurance Assigned Provider 10/05/23 Fahad Knott MD [address] [place] [phone] [email or web address] Endocrinology 11/27/22 Gilmer Chahal MD [address] [place] [address] [email or web address] Gastroenterology 11/27/22 Hasmukh Rubio MD [address] [address] Cardiology 11/27/22 Kalpana Islas, OT 30 [place] [address] [email or web address] Transitions Visual Basic ProgrammerHuc Ob Therapy 08/13/24 08/24/24 documented as of this encounter Additional Source Comments The information contained in this document represents components of the legal health record. It is not the complete legal health record.[facility]
--- OUTSIDE RECORDS SUMMARY | 2025-03-18 13:30 | XMS_ITS | Encounter Summary ---
Author Organization [facility] Address [address] [place] [address] [place] [address] Phone Care Team Providers Care Assessment Nurse Name Role Phone Sherine Osborn MD Primary Care Provider Jack Buitrago MD Unavailable [phone] Prosper Patrick MD Unavailable [phone] Sherine Osborn MD Unavailable Joan Haley MD Primary Care Provider + Joan Haley MD Unavailable [phone] Joan Haley MD Primary Care Provider + Fahad Knott MD Unavailable Gilmer Chahal MD Unavailable [phone] Hasmukh Rubio MD Unavailable Joan Haley MD Primary Care Provider + Kalpana Islas OT Unavailable Encounter Details Date Type Department Care Team (Late st Contact Info) Description 03/26/2021 Procedure Pass [facility], Ct Scan - [facility] 30 [place] [address] Social History Tobacco Use Types Packs/Day Years Used Date Smoking Tobacco: Never Smokeless Tobacco: Never Alcohol Use Standard Drinks/Week Comments No 0 (1 standard drink = 0.6 oz pur e alcohol) Child or Family Care Answer Date Record ed Do you have problems with on e of the following making it difficult for you to work, study, or receive health care? No 09/14/2020 Education Answer Date Recorded Are you interested in help w ith more adult education (for example, completing high school, GED, job training, learning the [place] language, technical skills, or developing parenting skills)? No 09/14/2020 Are you concerned about learning? Not on file 09/14/2020 Not on file 09/14/2020 Not on file 09/14/2020 Food Answer Date Recorded Within the past [...] appointments or from getting medications? No 09/14/2020 Education Answer Date Recorded What is the highest level of school you have completed or the highest degree you have received? 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, BLOOD BANK WORKER, FEMI) 07/30/2018 Comments No Sex and Gender [...] on file documented as of this encounter Functional Status * Calculated C-SSRS Risk Score (Lifetime/Recent) Answer Date of Assessment Author No Risk Indicated 03/26/2021 3:56 AM EDT Arlette Alcaraz RN * [place] Suicide Severity Rating Scale (Screener/Recent Self-Report) Question Answer Date of Assessment Author 1. Wish to be (Past 1 Month) No 03/26/2021 3:56 AM EDT Arlette Alcaraz RN 2. Non-Specific Active Suicidal Thoughts (Past 1 Month) No 03/26/2021 3:56 AM EDT Arlette Alcaraz RN 6. Suicidal Behavior (Lifetime) No 03/26/2021 3:56 AM EDT Arlette Alcaraz RN documented as of this encounter Plan of Treatment Upcoming Encounters Date Type Department Care Team (Late st Contact Info) Description 03/19/2025 4:15 PM EDT Appointment [address] [address] Fahad Knott MD [address] [place] [address] 05/04/2025 11:40 AM EST Office Visit [facility] [address] [place] [address] 3rd Floor, [address] [place] [address] Josias Vasquez MD [address] [place] [address] documented as of this encounter Visit Diagnoses Not on filedocumented in this encounter Additional Health Concerns Infection Onset Date Last Indicated Resolved Time CoV-Risk 03/26/2021 03/26/2021 04/05/2021 1:23 AM EDT CoV-Risk 03/28/2022 03/28/2022 04/08/2022 1:22 AM EDT CoV-Risk Comment:Per Ambulatory Triage Form 07/10/2023 07/10/202307/21 1:22 AM EST CoV-Risk 09/07/2024 09/07/2024 09/18/2024 1:21 AM EDT Assessment Noted Time PHQ-2 Depression Total Score: 2 09/15/19 9:07 AM EDT documented as of this encounter Care Teams Assessment Nurse Relationship Specialty Start Date End Date Sherine Osborn MD 15 [facility] 201 [place] [address] [email or web address] PCP - General Family Medicine 09/14/20 11/21/21 Joan Haley MD 15 [facility] 201 [place] [address] [email or web address] PCP - General Family Medicine 11/22/21 11/26/22 Joan Haley MD [address] [address] [email or web address] PCP - General Family Medicine 11/27/22 11/27/23 Joan Haley MD [address] [place] [address] 7 [place] [address] [email or web address] PCP - General Family Medicine 11/28/23 Jack Buitrago MBBS, MD [address] [place] [address] [email or web address] Primary Oncologist Medical Oncology 11/17/20 Prosper Patrick MD [address] [place] [address] [address] [place] [address] [email or web address] Insurance Assigned Provider 10/07/19 10/07/21 Sherine Osborn MD 15 [facility] 201 [place] [address] [email or web address] Insurance Assigned Provider 10/07/21 10/06/22 Joan Haley MD 234 [facility], [address] [place] [address] [email or web address] Insurance Assigned Provider 10/05/23 Fahad Knott MD [address] [place] [phone] [email or web address] Endocrinology 11/27/22 Gilmer Chahal MD 10 [facility] 2 [place] [address] [email or web address] Gastroenterology 11/27/22 Hasmukh Rubio MD 22 [facility] 301 [place] [address] Cardiology 11/27/22 Kalpana Islas, OT 30 [place] [address] [email or web address] Transitions Campus PresidentMusic Director Therapy 08/13/24 08/24/24 documented as of this encounter Additional Source Comments The information contained in this document represents components of the legal health record. It is not the complete legal health record.[facility]
--- OUTSIDE RECORDS SUMMARY | 2025-03-18 13:30 | XMS_ITS | Encounter Summary ---
Author Organization [facility] Address [address] [place] [address] [place] [address] Phone Care Team Providers Care Safemaker Name Role Phone Aren Henao MD Unavailable Ciarra Dunham SUBSTITUTE TEACHER Unavailable [phone] Pcp, Unknown Primary Care Provider Unavailabl Ian Willis MD Unavailable Ebony Childs PA-C Unavailable Petey Motta MD Unavailable Colton Deleon MD Unavailable Sherry Burris MD Unavailable Michelle Douglas MD Unavailable Rd Street MD Unavailable [phone] Mateusz Bravo SUBSTITUTE TEACHER Unavailable Unknown, Unknown Primary Care Provider Ciarra Lund CNP Primary Care Provider Prosper Patrick MD Unavailable [phone] Prosper Patrick MD Unavailable [phone] Sherine Osborn MD Primary Care Provider [phone] Jack Buitrago MD Unavailable [phone] Prosper Patrick MD Unavailable [phone] Sherine Osborn MD Unavailable Joan Haley MD Primary Care Provider + Joan Haley MD Unavailable Joan Haley MD Primary Care Provider + Fahad Knott MD Unavailable Gilmer Chahal MD Unavailable Hasmukh Rubio MD Unavailable Joan Haley MD Primary Care Provider + Kalpana Islas OT Unavailable [phone] Encounter Details Date Type Department Care Team (Latest Contact Info) Description 04/20/2017 Ancillary Orders [facility] 14 [facility] [address] [place] [address] Ciarra Dunham, SUBSTITUTE TEACHER 14 [facility] [address] [place] [phone] [email or web address] Vitamin D deficiency; Osteoporosis, unspecified osteoporosis type, unspecified pathological fracture presence; Loss of height Social History Tobacco Use Types Packs/Day Years [...] Info) Description 03/19/2025 4:15 PM EDT Appointment [facility], Bone Density - [facility] 30 [place] [address] Fahad Knott MD 31 [place] [address] 05/04/2025 11:40 AM EST Office Visit [facility] 22 [facility] 3rd Floor, [address] [place] [address] Josias Vasquez MD 50 [place] [address] documented as of this encounter Visit Diagnoses Diagnosis Vitamin D deficiency Osteoporosis, unspecified osteoporosis type, unspecified pathological fracture presence Loss of height documented in this encounter Additional Health Concerns Infection Onset Date Last Indicated Resolved Time CoV-Risk 03/26/2021 03/26/2021 04/05/2021 1:23 AM EDT CoV-Risk 03/28/2022 03/28/2022 04/08/2022 1:22 AM EDT CoV-Risk Comment:Per Ambulatory Triage Form 07/10/2023 07/10/202307/21 1:22 AM EST CoV-Risk 09/07/2024 09/07/2024 09/18/2024 1:21 AM EDT documented as of this encounter Care Teams Safemaker Relationship Specialty Start Date End Date Pcp, Unknown PCP - General 04/20/17 05/16/17 Unknown, Unknown, 15 [facility], 2nd [place] [address] PCP - General 05/18/17 05/27/17 Ciarra Dunham, SUBSTITUTE TEACHER [address] [place] [address] [address] [place] [address] PCP - General 05/28/17 09/13/20 Sherine Osborn MD 15 [facility]. 201 [place] [address] [email or web address] PCP - General Family Medicine 09/14/20 11/21/21 Joan Haley MD [address] [address] [email or web address] PCP - General Family Medicine 11/22/21 11/26/22 Joan Haley MD 15 [facility] 201 [place] [address] [email or web address] PCP - General Family Medicine 11/27/22 11/27/23 Joan Haley MD [address] [place] [address] 7 [place] [address] [email or web address] PCP - General Family Medicine 11/28/23 Aren Henao MD [address] [place] [address] [email or web address] Historical LMR Provider 04/20/17 09/13/20 Ciarra Dunham CNP [address] [place] [address] [address] [place] [address] [email or web address] Historical LMR Provider 04/20/17 Ian Ortiz MD [address] [place] [address], 201 [place] [address] Historical LMR Provider 04/20/17 Ebony Childs PA-C [address] [place] [address] [email or web address] Historical LMR Provider 04/20/17 Petey Motta MD [address] [place] [address] [email or web address] Historical LMR Provider 04/20/17 09/13/20 Colton Deleon MD 22 [facility], [address] [place] [address] [email or web address] Historical LMR Provider 04/20/17 Sherry Burris MD [address] [place] [address], [facility] 203 [place] [address] Historical LMR Provider 04/20/1708/29 Michelle Douglas MD [address] [place] [address], [address] [place] [address] Historical LMR Provider 04/20/1709/[address] MD [address] [place] [address], [address] [place] [address] Historical LMR Provider 04/20/17 Mateusz Bravo, PHILIPP [address] [place] [address], 2nd [place] [address] Historical LMR Provider 04/20/17 09/13/20 Prosper Patrick MD 14 [facility] [address] [place] [address] [email or web address] Insurance Assigned Provider 09/28/17 01/10/19 Prosper Patrick MD 14 [facility] [address] [place] [address] Insurance Assigned Provider 10/07/19 09/13/20 Jack Buitrago MBBS, MD [address] [place] [address] [email or web address] Primary Oncologist Medical Oncology 11/17/20 Prosper Patrick MD [address] [address] [email or web address] Insurance Assigned Provider 10/07/19 10/07/21 Sherine Osborn MD [address] [place] [phone] Insurance Assigned Provider 10/07/21 10/06/22 Joan Haley MD [address] [place] [address] 7 [place] [address] Insurance Assigned Provider 10/05/23 Fahad Knott MD [address] [place] [phone] [email or web address] Endocrinology 11/27/22 Gilmer Chahal MD [address] [place] [address] 2 [place] [address] Gastroenterology 11/27/22 Hasmukh Rubio MD [facility] 301 [place] [address] Cardiology 11/27/22 Kalpana Islas, OT 30 [place] [address] [email or web address] Transitions Family SpecialistLoan Review Officer Therapy 08/13/24 08/24/24 documented as of this encounter Additional Source Comments The information contained in this document represents components of the legal health record. It is not the complete legal health record.[facility]
--- OUTSIDE RECORDS SUMMARY | 2025-03-18 13:30 | XMS_ITS | Encounter Summary ---
Author Organization [facility] Address [address] [place] [address] [place] [address] Phone Care Team Providers Care Cnc Service Technician Name Role Phone Sherine Osborn MD Primary Care Provider Jack Buitrago MD Unavailable [phone] Prosper Patrick MD Unavailable [phone] Sherine Osborn MD Unavailable Joan Haley MD Primary Care Provider + Joan Haley MD Unavailable Joan Haley MD Primary Care Provider + Fahad Knott MD Unavailable Gilmer Chahal MD Unavailable [phone] Hasmukh Rubio MD Unavailable Joan Haley MD Primary Care Provider + Kalpana Islas OT Unavailable [phone] Encounter Details Date Type Department Care Team (Late st Contact Info) Description 01/10/2021 Procedure Pass Non-Invasive Cardiology [address] [place] [address] Social History Tobacco Use Types Packs/Day Years [...] high school, GED, job training, learning the Eritre[place] language, technical skills, or developing parenting skills)? [...] 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, GEOPHYSICAL LABORATORY CHIEF, FEMI) 07/30/2018 Comments No Sex and Gender [...] Info) Description 03/19/2025 4:15 PM EDT Appointment [facility], [facility] [address] [place] [address] Fahad Knott MD 31 [place] [address] 05/04/2025 11:40 AM EST Office Visit [facility] [address] [facility] 3rd Floor, [address] [place] [address] Josias Vasquez MD [address] [place] [address] documented as of this encounter Visit Diagnoses Not on filedocumented in this encounter Additional Health Concerns Infection Onset Date Last Indicated Resolved Time CoV-Risk 03/26/2021 03/26/2021 04/05/2021 1:23 AM EDT CoV-Risk 03/28/2022 03/28/2022 04/08/2022 1:22 AM EDT CoV-Risk Comment:Per Ambulatory Triage Form 07/10/2023 07/10/202307/21 1:22 AM EST CoV-Risk 09/07/2024 09/07/2024 09/18/2024 1:21 AM EDT Assessment Noted Time PHQ-2 Depression Total Score: 2 09/15/19 21 9:07 AM EDT documented as of this encounter Care Teams Cnc Service Technician Relationship Specialty Start Date End Date Sherine Osborn MD [address] [address] PCP - General Family Medicine 09/14/20 11/21/21 Joan Haley MD [address] [address] PCP - General Family Medicine 11/22/21 11/26/22 Joan Haley MD [address] [address] PCP - General Family Medicine 11/27/22 11/27/23 Joan Haley MD [address] [place] [address] 7 [place] [address] PCP - General Family Medicine 11/28/23 Jack Buitrago MBBS, MD [address] [place] [address] [email or web address] Primary Oncologist Medical Oncology 11/17/20 Prosper Patrick MD [address] [place] [address] [address] [place] [address] Insurance Assigned Provider 10/07/19 10/07/21 Sherine Osborn MD [address] [address] Insurance Assigned Provider 10/07/21 10/06/22 Joan Haley MD [address] [place] [address] 7 [place] [address] Insurance Assigned Provider 10/05/23 Faahd Knott MD [address] [place] [phone] [email or web address] Endocrinology 11/27/22 Gilmer Chahal MD [address] [place] [address] [email or web address] Gastroenterology 11/27/22 Hasmukh Rubio MD [address] [place] [address] [email or web address] Cardiology 11/27/22 Kalpana Islas, OT [address] [place] [address] [email or web address] Transitions Cake StripperWeaver Hand Therapy 08/13/24 08/24/24 documented as of this encounter Additional Source Comments The information contained in this document represents components of the legal health record. It is not the complete legal health record.[facility]
--- OUTSIDE RECORDS SUMMARY | 2025-03-18 13:30 | XMS_ITS | Encounter Summary ---
Author Organization [facility] Address [address] [facility] [address] [place] [address] Phone Care Team Providers Care Tennis Net Maker Name Role Phone Aren Henao MD Unavailable Petey Motta MD Unavailable Colton Deleon MD Unavailable Sherry Burris MD Unavailable Michelle Douglas MD Unavailable Rd Street MD Unavailable [phone] Mate[address] Bravo SHIPPING INSPECTOR Unavailable Ciarra Dunham SHIPPING INSPECTOR Primary Care Provider Prosper Patrick MD Unavailable Prosper Patrick MD Unavailable [phone] Sherine Osborn MD Primary Care Provider Jack Buitrago, Unavailable [phone] Prosper Patrick MD Unavailable [phone] Sherine Osborn MD Unavailable Joan Haley MD Primary Care Provider + Joan Haley MD Unavailable Joan Haley MD Primary Care Provider + Fahad Knott MD Unavailable Gilmer Chahal MD Unavailable Hasmukh Rubio MD Unavailable Joan Haley MD Primary Care Provider + Kalpana Islas OT Unavailable Encounter Details Date Type Department Care Team (Latest Contact Info) Description 06/03/2017 Transcribe Orders [facility] 30 [place] [address] Jeremiah Whiteside MD [address] [place] [address], 3 [place] [address] [email or web address] Essential hypertension, benign (Primary Dx); Type 2 diabetes mellitus without complication, without long-term current use of insulin Social History Tobacco Use Types Packs/Day Years [...] Info) Description 03/19/2025 4:15 PM EDT Appointment [facility], [address] [address] Fahad Knott MD [address] [place] [address] 05/04/2025 11:40 AM EST Office Visit [facility] [address] Floor, [address] [place], [place] [phone] Josias Vasquez MD [address] [place] [address] [email or web address] documented as of this encounter Procedures Procedure Name Priority Date/Time Associated Diagnosis Comments MICROALBUMIN/CREATINI NE RATIO, RANDOM URINE Routine 06/03/2017 1:46 PM EST Essential hypertension, benign Type 2 diabetes mellitus without complication, without long-term current use of insulin CBC AND DIFFERENTIAL Routine 06/03/2017 1:46 PM EST Essential hypertension, benign Type 2 diabetes mellitus without complication, without long-term current use of insulin PARATHYROID HORMONE (PTH) Routine 06/03/2017 1:46 PM EST Essential hypertension, benign Type 2 diabetes mellitus without complication, without long-term current use of insulin MAGNESIUM Routine 06/03/2017 1:46 PM EST Essential hypertension, benign Type 2 diabetes mellitus without complication, without long-term current use of insulin BASIC METABOLIC PANEL Routine 06/03/2017 1:46 PM EST Essential hypertension, benign Type 2 diabetes mellitus without complication, without long-term current use of insulin documented in this encounter Results * Microalbumin/creatinine ratio, random urine (06/03/2017 1:46 PM EST) URINE MICROALBUMIN 0.0 0 - 2.3 mg/dL [facility] URINE CREATININE 117 mg/dL BILLING REP [facility] MICROALB/CRE RATIO NOT CALCULATED 0 - 20 mg/g Cre [facility] Comment:due to Microalbumin <1.2 Urine (Urine) 06/03/2017 1:4 6 PM EST 06/03/2017 1:51 PM EST us Jeremiah Whiteside MD URINE ORDERABLES Final Result [facility] [address] [place] [address] * (ABNORMAL) CBC and differential (06/03/2017 1:46 PM EST) WBC 6.12 3.40 - 11.20 K/uL [facility] RBC 4.38 3.80 - 4.80 M/uL [facility] HGB 13.7 12.0 - 15.0 g/dL [facility] HCT 40.8 36.0 - 46.0 % [facility] PLT 321 130 - 400 K/uL [facility] MCV 93.2 79.0 - 98.0 fL [facility] MCH 31.3 27.0 - 34.8 pg [facility] MCHC 33.6 31.5 - 36.0 g/dL [facility] RDW 12.8 10.8 - 14.6 % [facility] MPV 10.3 9.4 - 12.4 fl [facility] NRBC 0.00 /100 WBCs [facility] ABSOLUTE NRBC 0.00 K/uL [facility] DIFF METHOD Auto [facility] NEUTS 52.8 45.30 - 77.70 % [facility] LYMPHS 34.2 12.30 - 39.70 % [facility] MONOS 10.8 4.10 - 12.80 % [facility] EOS 0.7 0 - 7.2 % [facility] BASOS 1.3 0 - 2.80 % [facility] Granulocytes, immature (%) 0.2 0.0 - 0.9 % [facility] ABSOLUTE NEUTS 3.24 1.40 - 7.70 K/uL [facility] ABSOLUTE LYMPHS 2.09 0.60 - 3.20 K/uL [facility] ABSOLUTE MONOS 0.66(H) 0.11 - 0.59 K/uL [facility] ABSOLUTE EOS 0.04 0.01 - 0.50 K/uL [facility] ABSOLUTE BASOS 0.08 0.00 - 0.08 K/uL [facility] Granulocytes, immature 0.01 0.00 - 0.05 K/uL [facility] Blood 06/03/2017 1:46 PM EST 06/03/2017 1:49 PM EST Jeremiah Whiteside MD LAB BLOOD ORDERABLES Final Re sult Performing Organization Address City/[facility]/ZIP Co de Phone Number [address] [address] * Magnesium (06/03/2017 1:46 PM EST) MAGNESIUM 2.1 1.6 - 2.6 mg/dL [facility] Blood 06/03/2017 1:46 PM EST 06/03/2017 1:49 PM EST us Jeremiah Whiteside MD LAB BLOOD ORDERABLES Final Re sult Performing Organization Address [facility] de Phone Number [address] [address] * (ABNORMAL) Basic metabolic panel (06/03/2017 1:46 PM EST) SODIUM 136 133 - 146 mmol/L [facility] CHLORIDE 97 96 - 108 mmol/L [facility] POTASSIUM 4.7 3.3 - 5.1 mmol/L [facility] CO2 27 21 - 35 mmol/L [facility] BUN 13 6 - 19 mg/dL [facility] CREATININE 1.20 0.5 - 1.5 mg/dL [facility] GLUCOSE 81 70 - 99 mg/dL [facility] CALCIUM 9.3 8.4 - 10.3 mg/dL [facility] EGFR 45(L) 60 - 1,000 mL/min/1.7 3m2 [facility] Comment:Abnormal if <60. If patient is -Beninese, multiply the result by 1.21. ANION GAP 17 10 - 20 mmol/L [facility] Blood 06/03/2017 1:46 PM EST 06/03/2017 1:49 PM EST Jeremiah Whiteside MD LAB BLOOD ORDERABLES Final Re sult Performing Organization Address City/[facility]/ZIP Co de Phone Number [address] [address] * Parathyroid hormone (PTH) (06/03/2017 1:46 PM EST) PARATHYROID HORMONE 42 15 - 65 pg/mL [facility] Blood 06/03/2017 1:46 PM EST 06/03/2017 1:50 PM EST us Jeremiah Whiteside MD LAB BLOOD ORDERABLES Final Re sult [facility] [address] [place] [address] documented in this encounter Visit Diagnoses Diagnosis Essential hypertension, benign- Primary Type 2 diabetes mellitus without complication, without long-term current use of insulin documented in this encounter Additional Health Concerns Infection Onset Date Last Indicated Resolved Time CoV-Risk 03/26/2021 03/26/2021 04/05/2021 1:23 AM EDT CoV-Risk 03/28/2022 03/28/2022 04/08/2022 1:22 AM EDT CoV-Risk Comment:Per Ambulatory Triage Form 07/10/2023 07/10/202307/21 1:22 AM EST CoV-Risk 09/07/2024 09/07/2024 09/18/2024 1:21 AM EDT documented as of this encounter Care Teams Tennis Net Maker Relationship Specialty Start Date End Date Ciarra Dunham CNP [address] [place] [address] [place] [address] PCP - General 05/28/17 09/13/20 Sherine Osborn MD [address] [address] PCP - General Family Medicine 09/14/20 11/21/21 Joan Haley MD [address] [address] [email or web address] PCP - General Family Medicine 11/22/21 11/26/22 Joan Haley MD 15 [facility] [address]. [address] [place] [address] PCP - General Family Medicine 11/27/22 11/27/23 Joan Haley MD [address] [place] [address] 7 [place] [address] [email or web address] PCP - General Family Medicine 11/28/23 Aren Henao MD 22 [place] [address] [email or web address] Historical LMR Provider 04/20/17 09/13/20 Petey Motta MD [address] [place] [address] [email or web address] Historical LMR Provider 04/20/17 09/13/20 Colton Deleon MD 22 [facility] 301 [place] [address] [email or web address] Historical LMR Provider 04/20/17 Sherry Burris MD 22 [facility] 203 [place] [address] [email or web address] Historical LMR Provider 04/20/1708/29 Michelle Douglas MD [address] [place] [address], [address] [place] [address] Historical LMR Provider 04/20/1709/[address] MD 22 [facility], [address] [place] [address] Historical LMR Provider 04/20/17 Mateusz Bravo CNP 15 [facility], [address] [place] [address] Historical LMR Provider 04/20/17 09/13/20 Prosper Patrick MD [address] [place] [address] [place] [phone] Insurance Assigned Provider 09/28/17 01/10/19 Prosper Patrick MD 14 [facility] [address] [place] [phone] Insurance Assigned Provider 10/07/19 09/13/20 Jack Buitrago MBBS, MD [address] [place] [address] [email or web address] Primary Oncologist Medical Oncology 11/17/20 Prosper Patrick MD 14 [facility] [address] [place] [address] Insurance Assigned Provider 10/07/19 10/07/21 Sherine Osborn MD [address] [place] [address]. [address] [place] [address] [email or web address] Insurance Assigned Provider 10/07/21 10/06/22 Joan Haley MD [address] [facility], [address] [place] [address] [email or web address] Insurance Assigned Provider 10/05/23 Fahad Knott MD [address] [place] [phone] [email or web address] Endocrinology 11/27/22 Gilmer Chahal MD [address] [place] [address] 2 [place] [address] [email or web address] Gastroenterology 11/27/22 Hasmukh Rubio MD 22 [facility] 301 [place] [address] Cardiology 11/27/22 Kalpana Islas, OT 30 [place] [address] [email or web address] Transitions Graphic DesignerDual Rate Supervisor Therapy 08/13/24 08/24/24 documented as of this encounter Additional Source Comments The information contained in this document represents components of the legal health record. It is not the complete legal health record.[facility]
--- OUTSIDE RECORDS SUMMARY | 2025-03-18 13:31 | XMS_ITS | Encounter Summary ---
Author Organization [facility] Address [address] [facility] [address] [place] [address] Phone Care Team Providers Care Porcelain Technician Name Role Phone Aren Henao MD Unavailable Petey Motta MD Unavailable Colton Deleon MD Unavailable Sherry Burris MD Unavailable Michelle Douglas MD Unavailable Rd Street MD Unavailable [phone] Mateusz Bravo NEGATIVE TURNER APPRENTICE Unavailable Ciarra Dunham NEGATIVE TURNER APPRENTICE Primary Care Provider Prosper Patrcik MD Unavailable Prosper Patrick MD Unavailable [phone] Sherine Osborn MD Primary Care Provider Jack Buitrago, Unavailable Prosper Patrick MD Unavailable [phone] Sherine Osborn MD Unavailable [phone] Joan Haley MD Primary Care Provider + Joan Haley MD Unavailable Joan Haley MD Primary Care Provider + Fahad Knott MD Unavailable Gilmer Chahal MD Unavailable Hasmukh Rubio MD Unavailable [phone] Joan Haley MD Primary Care Provider + Kalpana Islas OT Unavailable Encounter Details Date Type Department Care Team (Late st Contact Info) Description 12/09/2017 [facility] [address] [facility] [address] [place] [address] Aren Henao MD [address] [place] [address] [email or web address] Social History Tobacco Use Types Packs/Day Years [...] Info) Description 03/19/2025 4:15 PM EDT Appointment [facility], [facility] 30 [place] [address] Fahad Knott MD 31 [place] [address] 05/04/2025 11:40 AM EST Office Visit [facility] [address] [facility] 3rd Floor, [address] [place] [address] Josias Vasquez MD 50 [place] [address] documented as of this encounter Visit Diagnoses Not on filedocumented in this encounter Additional Health Concerns Infection Onset Date Last Indicated Resolved Time CoV-Risk 03/26/2021 03/26/2021 04/05/2021 1:23 AM EDT CoV-Risk 03/28/2022 03/28/2022 04/08/2022 1:22 AM EDT CoV-Risk Comment:Per Ambulatory Triage Form 07/10/2023 07/10/202307/21 1:22 AM EST CoV-Risk 09/07/2024 09/07/2024 09/18/2024 1:21 AM EDT documented as of this encounter Care Teams Porcelain Technician Relationship Specialty Start Date End Date Ciarra Dunham CNP [address] [place] [address] [place] [address] PCP - General 05/28/17 09/13/20 Sherine Osborn MD [address] [address] PCP - General Family Medicine 09/14/20 11/21/21 Joan Haley MD [address] [address] PCP - General Family Medicine 11/22/21 11/26/22 Joan Haley MD 15 [facility] 201 [place] [address] [email or web address] PCP - General Family Medicine 11/27/22 11/27/23 Joan Haley MD [address] [place] [address] 7 [place] [address] [email or web address] PCP - General Family Medicine 11/28/23 Aren Henao MD 22 [place] [address] [email or web address] Historical LMR Provider 04/20/17 09/13/20 Petey Motta MD [address] [place] [address] [email or web address] Historical LMR Provider 04/20/17 09/13/20 Colton Deleon MD [address] [facility], [address] [place] [address] [email or web address] Historical LMR Provider 04/20/17 Sherry Burris MD [address] [facility], [address] [place] [address] [email or web address] Historical LMR Provider 04/20/1708/29 Michelle Douglas MD [address] [facility], 2nd [place] [address] [email or web address] Historical LMR Provider 04/20/1709/[address] MD [address] [place] [address], [address] [place] [address] Historical LMR Provider 04/20/17 Mateusz Bravo CNP [address] [facility], 2nd [place] [address] Historical LMR Provider 04/20/17 09/13/20 Prosper Patrick MD [address] [place] [address] [place] [address] Insurance Assigned Provider 09/28/17 01/10/19 Prosper Patrick MD [address] [place] [address] Insurance Assigned Provider 10/07/19 09/13/20 Jack Buitrago MBBS, MD [address] [place] [address] [email or web address] Primary Oncologist Medical Oncology 11/17/20 Prosper Patrick MD [address] [place] [address] [place] [address] Insurance Assigned Provider 10/07/19 10/07/21 Sherine Osborn MD [address] [facility] [address] [place] [address] Insurance Assigned Provider 10/07/21 10/06/22 Joan Haley MD [address] [facility] [address] [place] [address] [email or web address] Insurance Assigned Provider 10/05/23 Fahad Knott MD [address] [place] [phone] [email or web address] Endocrinology 11/27/22 Gilmer Chahal MD [address] [place] [address] [email or web address] Gastroenterology 11/27/22 Hasmukh Rubio MD [address] [place] [address] [email or web address] Cardiology 11/27/22 Kalpana Islas, OT 30 [place] [address] [email or web address] Transitions Hay ChopperMaterial Hauler Therapy 08/13/24 08/24/24 documented as of this encounter Additional Source Comments The information contained in this document represents components of the legal health record. It is not the complete legal health record.[facility]
--- OUTSIDE RECORDS SUMMARY | 2025-03-18 13:31 | XMS_ITS | Encounter Summary ---
Author Organization [facility] Address [address] [facility] [address] [place] [address] Phone Care Team Providers Care Metaphysics Teacher Name Role Phone Aren Henao MD Unavailable Petey Motta MD Unavailable Colton Deleon MD Unavailable Sherry Burris MD Unavailable Michelle Douglas MD Unavailable Rd Street MD Unavailable [phone] Mateusz Bravo LEAD PROCESS ENGINEER Unavailable Ciarra Dunham LEAD PROCESS ENGINEER Primary Care Provider Prosper Patrick MD Unavailable Sherine Osborn MD Primary Care Provider Jack Buitrago, Unavailable Prosper Patrick MD Unavailable [phone] Sherine Osborn MD Unavailable [phone] Joan Haley MD Primary Care Provider + Joan Haley MD Unavailable [phone] Joan Haley MD Primary Care Provider + Fahad Knott MD Unavailable [phone] Gilmer Chahal MD Unavailable Hasmukh Rubio MD Unavailable Joan Haley MD Primary Care Provider + RoshanKalpana OT Unavailable [phone] Encounter Details Date Type Department Care Team (Late st Contact Info) Description 10/22/2019 Ancillary Orders Non-Invasive Cardiology [address] [place] [address] Aren Henao MD [address] [place] [address] [email or web address] Complete heart block Social History Tobacco Use Types Packs/Day Years Used Date Smoking Tobacco: Never Smokeless Tobacco: Never Alcohol Use Standard Drinks/Week Comments No 0 (1 standard drink = 0.6 oz pur e alcohol) Education Answer Date Recorded What is the highest level of school you have completed or the highest degree you have received? 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, PARKING METER INSTALLER, FEMI) 07/30/2018 Comments No Sex and Gender [...] Info) Description 03/19/2025 4:15 PM EDT Appointment [facility], [facility] 30 [place] [address] Fahad Knott MD 31 [place] [address] 05/04/2025 11:40 AM EST Office Visit [facility] 3rd [facility], [address] [place] [address] Josias Vasquez MD [address] [place] [address] [email or web address] documented as of this encounter Results * DEVICE CHECK: PPM IN-HOME INTERROGATION (01/05/2020 4:43 PM EDT) Narrative Aren Henao MD - 01/07/2020 1:30 PM EDT Reason for appointment: Remote pacemaker interrogation HPI: Routine 3 month remote pacemaker interrogation. No device related complaints. Indication for device: CHB. Examination: Device type: Pacemaker Double End Chucking Machine Operator: Medtronic Mode: AAI-DDD LRL/UPL: 70/140 bpm Mode switches: 3 brief, longest 3 min High V rates: 0 Thresholds, impedances, and sensing stable. Atrial pacin.8% Ventricular pacin% Battery: 2.5 yrs Additional comments: Device functioning appropriately. Normal device function. Patient to follow-up for continued monitoring every 3 months. Report prepared by Waqas Quinteros RN Aren Henao MD CV CARDIAC SERVICES ORDER [...] documented as of this encounter Care Teams Metaphysics Teacher Relationship Specialty Start Date End Date Ciarra Dunham, LEAD PROCESS ENGINEER 14 [facility] [address] [place] [address] [email or web address] PCP - General 05/28/17 09/13/20 Sherine Osborn MD [address] [address] [email or web address] PCP - General Family Medicine 09/14/20 11/21/21 Joan Haley MD [address] [address] [email or web address] PCP - General Family Medicine 11/22/21 11/26/22 Joan Haley MD [address] [address] [email or web address] PCP - General Family Medicine 11/27/22 11/27/23 Joan Haley MD [address] [place] [address] [address] [place] [address] [email or web address] PCP - General Family Medicine 11/28/23 Aren Henao MD 22 [place] [address] [email or web address] Historical LMR Provider 04/20/17 09/13/20 Petey Motta MD [address] [place] [address] [email or web address] Historical LMR Provider 04/20/17 09/13/20 Colton Deleon MD 22 [facility], [address] [place] [address] Historical LMR Provider 04/20/17 Sherry Burris MD 22 [facility], [facility] 203 [place] [address] Historical LMR Provider 04/20/1708/29 Michelle Douglas MD [address] [place] [address], [address] [place] [address] Historical LMR Provider 04/20/1709/[address] MD [address] [place] [address], [address] [place] [address] Historical LMR Provider 04/20/17 Mateusz Bravo, LEAD PROCESS ENGINEER [address] [place] [address], [address] [place] [address] Historical LMR Provider 04/20/17 09/13/20 Prosper Patrick MD [address] [place] [address] [address] [place] [address] Insurance Assigned Provider 10/07/19 09/13/20 Jack Buitrago MBBS, MD [address] [place] [address] [email or web address] Primary Oncologist Medical Oncology 11/17/20 Prosper Patrick MD 14 [facility] [address] [place] [address] Insurance Assigned Provider 10/07/19 10/07/21 Sherine Osborn MD 15 [facility] 201 [place] [address] Insurance Assigned Provider 10/07/21 10/06/22 Joan Haley MD [address] [place] [address] 7 [place] [address] Insurance Assigned Provider 10/05/23 Fahad Knott MD [address] [place] [phone] [email or web address] Endocrinology 11/27/22 Gilmer Chahal MD [address] [place] [address] [email or web address] Gastroenterology 11/27/22 Hasmukh Rubio MD 22 [facility] 301 [place] [address] Cardiology 11/27/22 Kalpana Islas, [address] [address] [email or web address] Transitions Email MarketerEnterprise Systems Administrator Therapy 08/13/24 08/24/24 documented as of this encounter Additional Source Comments The information contained in this document represents components of the legal health record. It is not the complete legal health record.[facility]
--- OUTSIDE RECORDS SUMMARY | 2025-03-18 13:31 | XMS_ITS | Encounter Summary ---
Author Organization [facility] Address [address] [facility] [address] [place] [address] Phone Care Team Providers Care Casino Runner Name Role Phone Aren Henao MD Unavailable Petey Motta MD Unavailable Colton Deleon MD Unavailable Sherry Burris MD Unavailable Michelle Douglas MD Unavailable Rd Street MD Unavailable [phone] Mateusz Bravo SUPERVISOR CAR INSTALLATIONS Unavailable Ciarra Dunham SUPERVISOR CAR INSTALLATIONS Primary Care Provider Prosper Patrick MD Unavailable [phone] Prosper Patrick MD Unavailable [phone] Sherine Osborn MD Primary Care Provider Jack Buitrago, Unavailable [phone] Prosper Patrick MD Unavailable [phone] Sherine Osborn MD Unavailable Joan Haley MD Primary Care Provider + Joan Haley MD Unavailable [phone] Joan Haley MD Primary Care Provider + Fahad Knott MD Unavailable [phone] Gilmer Chahal MD Unavailable [phone] Hasmukh Rubio MD Unavailable Joan Haley MD Primary Care Provider + Kalpana Islas OT Unavailable Encounter Details Date Type Department Care Team (Late st Contact Info) Description 12/09/2017 Ancillary Orders Non-Invasive Cardiology [address] [place] [address] Aren Henao MD [address] [place] [address] [email or web address] Complete heart block Social History Tobacco [...] Info) Description 03/19/2025 4:15 PM EDT Appointment [facility], Bone [facility] 30 [place] [address] Fahad Knott MD 31 [place] [address] 05/04/2025 11:40 AM EST Office Visit [facility] 3[facility], [address] [place] [address] Josias Vasquez MD 50 [place] [address] [email or web address] documented as of this encounter Results * DEVICE CHECK: PPM REMOTE INTERROGATION WITH IDEA MAN REVIEW (12/10/2017 8:31 AM EDT) Narrative Aren Henao MD - 12/15/2017 1:16 PM EDT CC: Device check -dual chamber pacemaker HPI: Tomeka Donaldson is here for program evaluation of Medtronic dual-chamber pacemaker. No device related complaints. Indication for device: Sick sinus syndrome Please see full scanned interrogation details associated with today's date. Device Check: Device Type: Pacemaker Cardiac Cath Rn:Medtronic Battery: 4 years Mode: MVP LRL/URL: 60/140 bpm AP: 18.2% NUCLEAR MEDICAL TECH: 18% AMS: None Lead impedances, sensing, and thresholds testing all within normal parameters. There was one ventricular high rate. Nonsustained VT 5 beats Assessment: Sick sinus syndrome Plan: Programming evaluation completed today with iterative adjustment of the implantable device to test the function and select optimal permanent program values with analysis, review and report. Normal device function with no device related complaints. Was reviewed with my supervising physician. Patient to follow-up for continued monitoring. Adeel Eastman NP Aren Henao MD CV CARDIAC SERVICES ORDER [...] documented as of this encounter Care Teams Casino Runner Relationship Specialty Start Date End Date Ciarra DunhamPHILIPP 14 [facility] [address] [place] [address] [email or web address] PCP - General 05/28/17 09/13/20 Sherine Osborn MD [address] [address] [email or web address] PCP - General Family Medicine 09/14/20 11/21/21 Joan Haley MD [address] [address] [email or web address] PCP - General Family Medicine 11/22/21 11/26/22 Joan Haley MD [address] [address] [email or web address] PCP - General Family Medicine 11/27/22 11/27/23 Joan Haley MD [address] [place] [address], [address] [place] [address] [email or web address] PCP - General Family Medicine 11/28/23 Aren Henao MD 22 [place] [address] [email or web address] Historical LMR Provider 04/20/17 09/13/20 Pteey Motta MD [address] [place] [address] [email or web address] Historical LMR Provider 04/20/17 09/13/20 Colton Deleon MD 22 [facility], [address] [place] [address] Historical LMR Provider 04/20/17 Sherry Burris MD 22 [facility], [facility] 203 [place] [address] Historical LMR Provider 04/20/1708/29 Michelle Douglas MD [address] [address] Historical LMR Provider 04/20/1709/[address] MD 22 [facility], [address] [place] [address] Historical LMR Provider 04/20/17 Mateusz Bravo, SUPERVISOR CAR INSTALLATIONS 15 [facility], [address] [place] [address] Historical LMR Provider 04/20/17 09/13/20 Prosper Patrick MD [address] [place] [address] [address] [place] [address] Insurance Assigned Provider 09/28/17 01/10/19 Prosper Patrick MD 14 [facility] [address] [place] [address] Insurance Assigned Provider 10/07/19 09/13/20 Jack Buitrago MBBS, MD [address] [place] [address] [email or web address] Primary Oncologist Medical Oncology 11/17/20 Prosper Patrick MD 14 [facility] [address] [place] [address] Insurance Assigned Provider 10/07/19 10/07/21 Sherine Osborn MD [address] [place] [address] [email or web address] Insurance Assigned Provider 10/07/21 10/06/22 Joan Haley MD [address] [place] [address] 7 [place] [address] [email or web address] Insurance Assigned Provider 10/05/23 Fahad Knott MD [address] [place] [phone] [email or web address] Endocrinology 11/27/22 Gilmer Chahal MD [address] [place] [address] [email or web address] Gastroenterology 11/27/22 Hasmukh Rubio MD [address] [place] [address] [email or web address] Cardiology 11/27/22 Kalpana Islas, OT 30 [place] [address] [email or web address] Transitions Building AttendantData Integration Developer Therapy 08/13/24 08/24/24 documented as of this encounter Additional Source Comments The information contained in this document represents components of the legal health record. It is not the complete legal health record.[facility]
--- OUTSIDE RECORDS SUMMARY | 2025-03-18 13:31 | XMS_ITS | Encounter Summary ---
Author Organization [facility] Address [address] [facility] [address] [place] [address] Phone Care Team Providers Care Cigarette Inspector Name Role Phone Jack Buitrago MD Unavailable Joan Haley MD Unavailable [phone] Fahad Knott MD Unavailable [phone] Gilmer Chahal MD Unavailable Hasmukh Rubio MD Unavailable [phone] Joan Haley MD Primary Care Provider + Kalpana Islas OT Unavailable [phone] Reason for Referral * MRI/CAT Scan - Authorized Specialty Diagnoses / Procedures Referred By Contac t Referred To Contact Radiology Diagnoses Pain of lower extremity, unspecified laterality Procedures MRI Lumbar Spine Chary Edmonds NP [address] [facility] [address] [place] [address] Phone: tel: fax: [email or web address] Referral ID Status Reason Start Date Expiration Date V isits Requested Visits Authorized [id number] Authorized 08/24/2024 1 1 Encounter Details Date Type Department Care Team (Late st Contact Info) Description 08/24/2024 Transcribe Orders Virtual Department 30 [place] [address] Chary Edmonds NP 38 [facility], [address] [place] [address] [email or web address] Pain of lower extremity, unspecified laterality (Primary Dx) Social History Tobacco Use Types Packs/Day Years Used Date Smoking Tobacco: Never Smokeless Tobacco: Never Alcohol Use Standard Drinks/Week Comments Never 0 (1 standard drink = 0.6 oz pur e alcohol) Home Health Assessment: Transportation Answer Date Recorded Lack of Transportation (Medical) No 08/25/2024 Lack of Transportation (Non-Medical) No 08/25/2024 Patient Unable or Declines to Respond No 08/25/2024 Child or Family Care Answer Date Record [...] as food, clothing, or medical care? No 08/12/2024 In the past 12 months have y ou been in a relationship with a person who hurts, threatens, or tries to control you? No 08/12/2024 Are you denied basic needs s uch as food, clothing, or medical care? No 08/12/2024 In the past 12 months have y ou been in a relationship with a person who hurts, threatens, or tries to control you? No 08/12/2024 Education Answer Date Recorded What is the highest level of school you have completed or the highest degree you have received? Master's degree (e.g., BRANDI, MS, Olinda, MEd, OUTBOUND TELEMARKETING REPRESENTATIVE, FEMI) 07/30/2018 Comments No Sex and Gender [...] Info) Description 03/19/2025 4:15 PM EDT Appointment [facility], Bone [facility] [address] [address] Fahad Knott MD [address] [place] [address] [email or web address] 05/04/2025 11:40 AM EST Office Visit [facility] [address] [place] [address] 3rd Floor, [address] [place] [address] Josias Vasquez MD [address] [place] [address] Scheduled Orders Name Type Priority Associated Diagnoses Orde r Schedule MRI Lumbar Spine Imaging Routine Pain of lower extremity, unspecified laterality Expected: 08/24/2024, Expires: 08/24/2025 documented as of this encounter Visit Diagnoses Diagnosis Pain of lower extremity, unspecified laterality- Primary documented in this encounter Additional Health Concerns Infection Onset Date Last Indicated Resolved Time CoV-Risk 09/07/2024 09/07/2024 09/18/2024 1:21 AM EDT Assessment Noted Time PHQ-2 Depression Total Score: 2 03/12/20 24 11:24 PM EDT documented as of this encounter Care Teams Cigarette Inspector Relationship Specialty Start Date End Date Joan Haley MD [address] [place] [address], [facility] 7 [place] [address] [email or web address] PCP - General Family Medicine 11/28/23 Jack Buitrago MBBS, MD [address] [place] [address] [email or web address] Primary Oncologist Medical Oncology 11/17/20 Joan Haley MD [address] [place] [address], [facility] 7 [place] [address] [email or web address] Insurance Assigned Provider 10/05/23 Fahad Knott MD [address] [place] [phone] [email or web address] Endocrinology 11/27/22 Gilmer Chahal MD [address] [place] [address] [email or web address] Gastroenterology 11/27/22 Hasmukh Rubio MD [address] [place] [address] [email or web address] Cardiology 11/27/22 Kalpana Islas, OT 30 [place] [address] [email or web address] Transitions Mechanical Shovel OperatorAthletic Instructor Therapy 08/13/24 08/24/24 documented as of this encounter Additional Source Comments The information contained in this document represents components of the legal health record. It is not the complete legal health record.[facility]
--- OUTSIDE RECORDS SUMMARY | 2025-03-18 13:31 | XMS_ITS | Encounter Summary ---
Author Organization [facility] Address [address] [place] [address] Phone Care Team Providers Care Lactation Nurse Name Role Phone Jack Buitrago MD Unavailable [phone] Joan Haley MD Unavailable Fahad Knott MD Unavailable Gilmer Chahal MD Unavailable Hasmukh Rubio MD Unavailable Joan Haley MD Primary Care Provider + Encounter Details Date Type Department Care Team (Late st Contact Info) Description 09/07/2024 Procedure Pass [facility], Ct Scan - [facility] 30 [place] [address] Social History Tobacco Use Types Packs/Day Years [...] 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, TEST BORING CREW CHIEF, FEMI) 07/30/2018 Comments No Sex and [...] Date of Assessment Author No Risk Indicated 09/07/2024 10:06 AM EDT Yuridia Norton RN * [place] Suicide Severity Rating Scale (Screener/Recent Self-Report) Question Answer Date of Assessment Author 1. Wish to be (Past 1 Month) No 025 10:06 AM EDT Yuridia Patel RN 2. Non-Specific Active Suici shama Thoughts (Past 1 Month) No 09/07/2024 10:06 AM EDT Lavon Patel RN 6. Suicidal Behavior (Lifetime) No 10:06 AM EDT Yuridia Patel RN documented as of this encounter Plan of Treatment Upcoming Encounters Date Type Department Care Team (Late st Contact Info) Description 03/19/2025 4:15 PM EDT Appointment [address] [address] Fahad Knott MD [address] [place] [address] 05/04/2025 11:40 AM EST Office Visit [facility] [address] [place] [address] 3rd Floor, [address] [place] [address] Josias Vasquez MD [address] [place] [address] documented as of this encounter Visit Diagnoses Not on filedocumented in this encounter Additional Health Concerns Infection Onset Date Last Indicated Resolved Time CoV-Risk 09/07/2024 09/07/2024 09/18/2024 1:21 AM EDT Assessment Noted Time PHQ-2 Depression Total Score: 2 03/12/20 24 11:24 PM EDT documented as of this encounter Care Teams Lactation Nurse Relationship Specialty Start Date End Date Joan Haley MD [address] [facility] 7 [place] [address] PCP - General Family Medicine 11/28/23 Jack Buitrago MBBS, MD [address] [place] [address] [email or web address] Primary Oncologist Medical Oncology 11/17/20 Joan Haley MD [address] [place] [address] 7 [place] [address] Insurance Assigned Provider 10/05/23 Fahad Knott MD [address] [place] [phone] [email or web address] Endocrinology 11/27/22 Gilmer Chahal MD [address] [place] [address] [email or web address] Gastroenterology 11/27/22 Hasmukh Rubio MD [address] [place] [address] [address] [email or web address] Cardiology 11/27/22 documented as of this encounter Additional Source Comments The information contained in this document represents components of the legal health record. It is not the complete legal health record.[facility]
--- OUTSIDE RECORDS SUMMARY | 2025-03-18 13:31 | XMS_ITS | Encounter Summary ---
Author Organization [facility] Address [address] [place] [address] [place] [address] Phone Care Team Providers Care Rubber Mill Tender Name Role Phone Sherine Osborn MD Primary Care Provider Jack Buitrago MD Unavailable Prosper Patrick MD Unavailable Sherine Osborn MD Unavailable [phone] Joan Haley MD Primary Care Provider + Joan Haley MD Unavailable Joan Haley MD Primary Care Provider + Fahad Knott MD Unavailable [phone] Gilmer Chahal MD Unavailable Hasmukh Rubio MD Unavailable [phone] Joan Haley MD Primary Care Provider + Kalpana Islas OT Unavailable Encounter Details Date Type Department Care Team (Late st Contact Info) Description 10/14/2020 Procedure Pass Non-Invasive Cardiology [address] [place] [address] Social History Tobacco Use Types Packs/Day Years [...] high school, GED, job training, learning the Cuban language, technical skills, or developing parenting skills)? [...] 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, SCRATCH FINISHER, FEMI) 07/30/2018 Comments No Sex and Gender [...] Info) Description 03/19/2025 4:15 PM EDT Appointment [facility], [facility] - [facility] 30 [place] [address] Fahad Knott MD 31 [place] [address] 05/04/2025 11:40 AM EST Office Visit [facility] [address] [facility] 3rd Floor, [address] [place] [address] Josias Vasquez MD [address] [place] [address] documented as of this encounter Visit Diagnoses [...] documented as of this encounter Care Teams Rubber Mill Tender Relationship Specialty Start Date End Date Sherine Osborn MD [address] [address] PCP - General Family Medicine 09/14/20 11/21/21 Joan Haley MD [address] [address] PCP - General Family Medicine 11/22/21 11/26/22 Joan Haley MD [address] [address] PCP - General Family Medicine 11/27/22 11/27/23 Joan Haley MD [address] [place] [address] 7 [place] [address] PCP - General Family Medicine 11/28/23 Jack Buitrago MBBS, MD [address] [place] [address] [email or web address] Primary Oncologist Medical Oncology 11/17/20 Prosper Patrick MD [address] [place] [address] [address] [place] [address] Insurance Assigned Provider 10/07/19 10/07/21 Sherine Osborn MD [address] [address] Insurance Assigned Provider 10/07/21 10/06/22 Joan Haley MD [address] [place] [address] 7 [place] [address] Insurance Assigned Provider 10/05/23 Fahad Knott MD [address] [place] [phone] [email or web address] Endocrinology 11/27/22 Gilmer Chahal MD [address] [place] [address] [email or web address] Gastroenterology 11/27/22 Hasmukh Rubio MD [address] [place] [address] [email or web address] Cardiology 11/27/22 Kalpana Islas, OT [address] [place] [address] [email or web address] Transitions Skin Care InstructorBelt Loop Machine Operator Therapy 08/13/24 08/24/24 documented as of this encounter Additional Source Comments The information contained in this document represents components of the legal health record. It is not the complete legal health record.[facility]
--- OUTSIDE RECORDS SUMMARY | 2025-03-18 13:31 | XMS_ITS | Clinical Summary ---
Author Organization [facility], Address [address] [facility] 3 [place] [address] Phone Care Team Providers Care Special Effects Technician Name Role Phone Sherine Osborn MD Primary Care Provider + [phone] Allergies Active Allergy Reactions Criticality Noted Date [...] did have some lab work done at [facility] and she should let me know if [...] Name Priority Date/Time Associated Diagnosis Comments LAB MERCURY CELL CLEANER Routine 08/29/2017 12:00 PM EST from Last 3 Months or Most Recently Relevant to Health Maintenance Results * Lab Floral Manager (08/29/2017 12:00 PM EST) Hemoglobin A1C 7.7 % KCA 08/29/2017 12:0 0 PM EST Kca Conversion LAB [id number] LICITED RESULTS Final Result [facility] from Last 3 Months or Most Recently Relevant to Health Maintenance Insurance Medicare [facility] Care Teams Special Effects Technician Relationship Specialty Start Date End Date Sherine Osborn MD 15 [place] [address] PCP - General Family Medicine 05/08/21
--- OUTSIDE RECORDS SUMMARY | 2025-03-18 13:31 | XMS_ITS | Encounter Summary ---
Author Organization [facility] Address [address] [facility] [address] [place] [address] Phone Care Team Providers Care Flatcar Whacker Name Role Phone Aren Henao MD Unavailable Petey Motta MD Unavailable Colton Deleon MD Unavailable Sherry Burris MD Unavailable [phone] Michelle Douglas MD Unavailable Rd Street MD Unavailable [phone] Mateusz Bravo TOWEL INSPECTOR Unavailable Ciarra Dunham TOWEL INSPECTOR Primary Care Provider Prosper Patrick MD Unavailable Sherine Osborn MD Primary Care Provider Jack Buitrago, Unavailable [phone] Prosper Patrick MD Unavailable Sherine Osborn MD Unavailable [phone] Joan Haley MD Primary Care Provider + Joan Haley MD Unavailable [phone] Joan Haley MD Primary Care Provider + Fahad Knott MD Unavailable Gilmer Chahal MD Unavailable [phone] Hasmukh Rubio MD Unavailable Joan Haley MD Primary Care Provider + RoshanKalpana OT Unavailable Encounter Details Date Type Department Care Team (Late st Contact Info) Description 2020 Ancillary Orders Non-Invasive Cardiology [address] [place] [address] Aren Henao MD [address] [place] [address] [email or web address] Complete heart block Social History Tobacco Use Types Packs/Day Years Used Date Smoking Tobacco: Never Smokeless Tobacco: Never Alcohol Use Standard Drinks/Week Comments No 0 (1 standard drink = 0.6 oz pur e alcohol) Education Answer Date Recorded What is the highest level of school you have completed or the highest degree you have received? 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, CHUMMER, FEMI) 07/30/2018 Comments No Sex and Gender [...] Description 03/19/2025 4:15 PM EDT Appointment [facility], [facility] 30 [place] [address] Fahad Knott MD 31 [place] [address] 05/04/2025 11:40 AM EST Office Visit [facility] [address], [address] [place] [address] Josias Vasquez MD [address] [place] [address] [email or web address] documented as of this encounter Results * DEVICE CHECK: ICD IN-HOME INTERROGATION PLUS HFM IMPEDANCE (07/12/2020 1:58 PM EST) Narrative Aren Henao MD - 07/13/2020 4:49 PM EST Reason for appointment: Remote pacemaker interrogation HPI: Routine 3 month remote pacemaker interrogation. No device related complaints. Indication for device: CHB. Examination: Device type: Pacemaker Farm Equipment Engine Mechanic: Medtronic Mode: AAI-DDD LRL/UPL: 70/140 bpm Mode switches: 0 High V rates: 0 Thresholds, impedances, and sensing stable. Atrial pacin.1% Ventricular pacin% Battery: 2 yrs Thoracic impedance: Stable, at baseline Additional comments: Device functioning appropriately. Normal device [...] documented as of this encounter Care Teams Flatcar Whacker Relationship Specialty Start Date End Date Ciarra DunhamPHILIPP 14 [facility] [address] [place] [address] [email or web address] PCP - General 05/28/17 09/13/20 Sherine Osborn MD [address] [address] [email or web address] PCP - General Family Medicine 09/14/20 11/21/21 Joan Haley MD [address] [address] [email or web address] PCP - General Family Medicine 11/22/21 11/26/22 Joan Haley MD [address] [address] [email or web address] PCP - General Family Medicine 11/27/22 11/27/23 Joan Haley MD [address] [place] [address], [address] [place] [address] [email or web address] PCP - General Family Medicine 11/28/23 Aren Henao MD 22 [place] [address] [email or web address] Historical LMR Provider 04/20/17 09/13/20 Petey Motta MD [address] [place] [address] [email or web address] Historical LMR Provider 04/20/17 09/13/20 Colton Deleon MD 22 [facility], [address] [place] [address] Historical LMR Provider 04/20/17 Sherry Burris MD 22 [facility], [address] [place] [address] Historical LMR Provider 04/20/1708/29 Michelle Douglas MD 15 [facility], [address] [place] [address] Historical LMR Provider 04/20/1709/[address] MD 22 [facility], [address] [place] [address] Historical LMR Provider 04/20/17 Mateusz Bravo CNP [address] [place] [address], [address] [place] [address] Historical LMR Provider 04/20/17 09/13/20 Prosper Patrick MD [address] [place] [address] [place] [address] Insurance Assigned Provider 10/07/19 09/13/20 Jack Buitrago MBBS, MD [address] [place] [address] [email or web address] Primary Oncologist Medical Oncology 11/17/20 Prosper Patrick MD 14 [facility] [address] [place] [address] Insurance Assigned Provider 10/07/19 10/07/21 Sherine Osborn MD 15 [facility] 201 [place] [address] Insurance Assigned Provider 10/07/21 10/06/22 Joan Haley MD [address] [place] [address] 7 [place] [address] Insurance Assigned Provider 10/05/23 Fahad Knott MD [address] [place] [phone] [email or web address] Endocrinology 11/27/22 Gilmer Chahal MD [address] [place] [address] [email or web address] Gastroenterology 11/27/22 Hasmukh Rubio MD 22 [facility] 301 [place] [address] Cardiology 11/27/22 Kalpana Islas, OT [address] [place] [address] [email or web address] Transitions Volunteer AssistantWelding Teacher Therapy 08/13/24 08/24/24 documented as of this encounter Additional Source Comments The information contained in this document represents components of the legal health record. It is not the complete legal health record.[facility]
--- OUTSIDE RECORDS SUMMARY | 2025-03-18 13:31 | XMS_ITS | Encounter Summary ---
Author Organization [facility] Address [address] [facility] [place] [address] Phone Care Team Providers Care Bag Sealer Name Role Phone Jack Buitrago MD Unavailable Joan Haley MD Unavailable Fahad Knott MD Unavailable Gilmer Chahal MD Unavailable Hasmukh Rubio MD Unavailable Joan Haley MD Primary Care Provider + Reason for Visit * Reason Onset Date Comments update 09/10/2024 Angela is calling to give update on pt. 2 pinch nerves, pt is in a lot of pain, uses a walker, pt is not able to get around at all, very nausea, and fatigue, pt can harderly speak Encounter Details Date Type Department Care Team (Late st Contact Info) Description 09/10/2024 Telephone [facility] [address] [place] [address] Joan Haley MD 234 [facility], [address] [place], [place] [phone] update (Angela is calling to give update on pt. 2 pinch nerves, pt is in a lot of pain, uses a walker, pt is not able to get around at all, very nausea, and fatigue, pt can harderly speak) Social History Tobacco Use Types Packs/Day Years [...] 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, CUSTOMER SERVICE ADVOCATE, FEMI) 07/30/2018 Comments No Sex and Gender [...] on file documented as of this encounter Progress Notes * Charles Renteria RN - 09/10/2024 3:30 PM EDT Pt report that she has been dealing with that back pain for over 1 month now, is getting MRI for it. Reports that she is taking ibuprofen, has anti-nausea pills, taking gabapentin. had not been taking hydromorphone due to nausea but did take it 3 hours ago - helped with the pain with no nausea. Will continue with this and see if she can manage the pain. States that she is also wanting to make sure the the MRI will also capture the right hip and right knee, advised that the current order would not cover this area, advised pcp has to determine if imaging that area is warranted, pt states that with lumbar spine alone will not be able to see the wholeissue. To pcp Pt is aware that she needs to have chest x-ray for the mri to done, has not done yet, advised to get done bao as that [facility] to 09[facility]17 mri appt. * Nae Bermudez - 09/10/2024 2:09 PM EDT Angela is calling to give update on pt. 2 pinch nerves, pt is in a lot of pain, uses a walker, pt isnot able to get around at all, very nausea, and fatigue, pt can harderly speak. Pt would like a call back from Dr. Haley. Best contact [phone] contact and advise. Central Support Histotechnologist Supervisor (Please do not reply to this user; this inbox is not monitored.) Thank you. documented in this encounter Plan of Treatment Upcoming Encounters Date Type Department Care Team (Late st Contact Info) Description 03/19/2025 4:15 PM EDT Appointment [facility], [address] [address] Fahad Knott MD [address] [place] [address] 05/04/2025 11:40 AM EST Office Visit [facility] [address] [place] [address] 3rd Floor, [address] [place] [address] Josias Vasquez MD 50 [place] [address] documented as of this encounter Visit Diagnoses Not on filedocumented in this encounter Additional Health Concerns Infection Onset Date Last Indicated Resolved Time CoV-Risk 09/07/2024 09/07/2024 09/18/2024 1:21 AM EDT Assessment Noted Time PHQ-2 Depression Total Score: 2 03/12/20 24 11:24 PM EDT documented as of this encounter Care Teams Bag Sealer Relationship Specialty Start Date End Date Joan Haley MD [address] [place] [address], [address] [place] [address] PCP - General Family Medicine 11/28/23 Jack Buitrago MBBS, MD [address] [place] [address] [email or web address] Primary Oncologist Medical Oncology 11/17/20 Joan Haley MD 234 [facility], [address] [place] [address] [email or web address] Insurance Assigned Provider 10/05/23 Fahad Knott MD [address] [place] [phone] [email or web address] Endocrinology 11/27/22 Gilmer Chahal MD [address] [place] [address] [email or web address] Gastroenterology 11/27/22 Hasmukh Rubio MD 22 [facility] 301 [place] [address] [email or web address] Cardiology 11/27/22 documented as of this encounter Additional Source Comments The information contained in this document represents components of the legal health record. It is not the complete legal health record.[facility]
--- OUTSIDE RECORDS SUMMARY | 2025-03-18 13:31 | XMS_ITS | Encounter Summary ---
Author Organization [facility] Address [address] [place] [address] [place] [address] Phone Care Team Providers Care Glove Tagger Name Role Phone Sherine Osborn MD Primary Care Provider Jack Buitrago MD Unavailable Prosper Patrick MD Unavailable [phone] Sherine Osborn MD Unavailable Joan Haley MD Primary Care Provider + Joan Haley MD Unavailable Joan Haley MD Primary Care Provider + Fahad Knott MD Unavailable Gilmer Chahal MD Unavailable Hasmukh Rubio MD Unavailable Joan Haley MD Primary Care Provider + Kalpana Islas OT Unavailable [phone] Encounter Details Date Type Department Care Team (Late st Contact Info) Description 06/01/2021 Procedure Pass Non-Invasive Cardiology [address] [place] [address] Social History Tobacco Use Types Packs/Day Years [...] high school, GED, job training, learning the [place] language, technical skills, or developing parenting skills)? [...] 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, JUTE BAG SEWER, FEMI) 07/30/2018 Comments No Sex and Gender [...] Info) Description 03/19/2025 4:15 PM EDT Appointment [facility], Bone Density - [facility] 30 [place] [address] Fahad Knott MD [address] [place] [address] 05/04/2025 11:40 AM EST Office Visit [facility] [address] [place] [address] 3rd Floor, [address] [place] [address] Josias Vasquez MD [address] [place] [address] documented as of this encounter Visit Diagnoses Not on filedocumented in this encounter Additional Health Concerns Infection Onset Date Last Indicated Resolved Time CoV-Risk 03/28/2022 03/28/2022 04/08/2022 1:22 AM EDT CoV-Risk Comment:Per Ambulatory Triage Form 07/10/2023 07/10/202307/21 1:22 AM EST CoV-Risk 09/07/2024 09/07/2024 09/18/2024 1:21 AM EDT Assessment Noted Time PHQ-2 Depression Total Score: 2 09/15/19 21 9:07 AM EDT documented as of this encounter Care Teams Glove Tagger Relationship Specialty Start Date End Date Sherine Osborn MD [address] [address] PCP - General Family Medicine 09/14/20 11/21/21 Joan Haley MD [address] [address] PCP - General Family Medicine 11/22/21 11/26/22 Joan Haley MD [address] [address] PCP - General Family Medicine 11/27/22 11/27/23 Joan Haley MD [address] [place] [address] [address] [place] [address] PCP - General Family Medicine 11/28/23 Jack Buitrago MBBS, MD [address] [place] [address] [email or web address] Primary Oncologist Medical Oncology 11/17/20 Prosper Patrick MD [address] [place] [address] [address] [place] [address] Insurance Assigned Provider 10/07/19 10/07/21 Sherine Osborn MD [address] [address] Insurance Assigned Provider 10/07/21 10/06/22 Joan Haley MD [address] [place] [address] 7 [place] [address] Insurance Assigned Provider 10/05/23 Fahad Knott MD [address] [place] [phone] [email or web address] Endocrinology 11/27/22 Gilmer Chahal MD [address] [place] [address] 2 [place] [address] Gastroenterology 11/27/22 Hasmukh Rubio MD 22 [facility] 301 [place] [address] Cardiology 11/27/22 Kalpana Islas, OT 30 [place] [address] [email or web address] Transitions Child And Youth Program AssistantEngine Setter Therapy 08/13/24 08/24/24 documented as of this encounter Additional Source Comments The information contained in this document represents components of the legal health record. It is not the complete legal health record.[facility]
--- OUTSIDE RECORDS SUMMARY | 2025-03-18 13:31 | XMS_ITS | Encounter Summary ---
Author Organization [facility] Address [address] [facility] [address] [place] [address] Phone Care Team Providers Care Knife Glazer Name Role Phone Aren Henao MD Unavailable Petey Motta MD Unavailable Colton Deleon MD Unavailable Sherry Burris MD Unavailable Michelle Douglas MD Unavailable Rd Street MD Unavailable [phone] Mateusz Bravo SUPERINTENDENT BOARD MILL Unavailable Ciarra Dunham SUPERINTENDENT BOARD MILL Primary Care Provider Prosper Patrick MD Unavailable Prosper Patrick MD Unavailable [phone] Sherine Osborn MD Primary Care Provider Jack Buitrago, Unavailable [phone] Prosper Patrick MD Unavailable [phone] Sherine Osborn MD Unavailable [phone] Joan Haley MD Primary Care Provider + Joan Haley MD Unavailable Joan Haley MD Primary Care Provider + Fahad Knott MD Unavailable [phone] Gilmer Chahal MD Unavailable [phone] Hasmukh Rubio MD Unavailable Joan Haley MD Primary Care Provider + Kalpana Islas OT Unavailable Encounter Details Date Type Department Care Team (Latest Contact Info) Description 11/11/2017 Transcribe Orders [facility] Laboratory [address] [place] [address] Jeremiah Whiteside MD [address] [place] [address], [address] [place] [address] Diabetes mellitus without complication (Primary Dx) Social History Tobacco Use Types [...] Info) Description 03/19/2025 4:15 PM EDT Appointment [facility], Bone Density [facility] [address] [place] [address] Fahad Knott MD [address] [place] [address] 05/04/2025 11:40 AM EST Office Visit [facility] [address] Floor, [address] [place] [address] Josias Vasquez MD [address] [place] [address] [email or web address] documented as of this encounter Results * (ABNORMAL) Creatinine/eGFR (11/11/2017 2:55 PM EDT) CREATININE 1.20 0.5 - 1.5 mg/dL [facility] EGFR 47(L) >59 mL/min/1.7 3m2 [facility] Comment:If patient is black, multiply result by 1.159. The eGFR calculation has changed from the MDRD equation to the CKD-EPI equation as of September 03, 2017. Blood 11/11/2017 2:55 PM EDT 11/11/2017 2:58 PM EDT us Jeremiah Whiteside MD LAB BLOOD ORDERABLES Final Re sult [address] [address] * Creatinine clearance (11/11/2017 10:00 AM EDT) URINE CREATININE 46 mg/dL [facility] EST CREAT CLEARANCE 71 70 - 130 mL/min [facility] Blood 11/11/2017 10:0 0 AM EDT 11/11/2017 2:58 PM EDT us Jeremiah Whiteside MD LAB BLOOD ORDERABLES Final Re sult [address] [address] * Total protein, 24 hr urine (11/11/2017 10:00 AM EDT) URINE TOTAL PROTEIN <4.0 mg/dL [facility] Protein, time varied urine (mg/TV) NOT CALCULATED 0 - 165 mg/total output [facility] Urine (Urine) 11/11/2017 10: 00 AM EDT 11/11/2017 2:58 PM EDT us Jeremiah Whiteside MD URINE ORDERABLES Final Result [facility] [address] [place] [address] documented in this encounter Visit Diagnoses Diagnosis Diabetes mellitus without complication- Primary Type II or unspecified type diabetes mellitus without mention of complication, not stated as uncontrolled documented in this encounter Additional Health Concerns Infection Onset Date Last Indicated Resolved Time CoV-Risk 03/26/2021 03/26/2021 04/05/2021 1:23 AM EDT CoV-Risk 03/28/2022 03/28/2022 04/08/2022 1:22 AM EDT CoV-Risk Comment:Per Ambulatory Triage Form 07/10/2023 07/10/202307/21 1:22 AM EST CoV-Risk 09/07/2024 09/07/2024 09/18/2024 1:21 AM EDT documented as of this encounter Care Teams Knife Glazer Relationship Specialty Start Date End Date Ciarra Dunham CNP [address] [place] [address] PCP - General 05/28/17 09/13/20 Sherine Osborn MD [address] [place] [address] PCP - General Family Medicine 09/14/20 11/21/21 Joan Haley MD [address] [place] [address] PCP - General Family Medicine 11/22/21 11/26/22 Joan Haley MD [address] [facility] [address] [place] [address] [email or web address] PCP - General Family Medicine 11/27/22 11/27/23 Joan Haley MD [address] [place] [address] 7 [place] [address] [email or web address] PCP - General Family Medicine 11/28/23 Aren Henao MD 22 [place] [address] [email or web address] Historical LMR Provider 04/20/17 09/13/20 Petey Motta MD [address] [place] [address] [email or web address] Historical LMR Provider 04/20/17 09/13/20 Colton Deleon MD [address] [facility], [address] [place] [address] [email or web address] Historical LMR Provider 04/20/17 1 Sherry Burris MD 22 [facility], [address] [place] [address] [email or web address] Historical LMR Provider 04/20/1708/29 Michelle [place] MD [address] [facility], 2nd [place] [address] Historical LMR Provider 04/20/1709/[address] MD 22 [facility], [address] [place] [address] Historical LMR Provider 04/20/17 Mateusz Bravo CNP [address] [facility], 2nd [place] [address] Historical LMR Provider 04/20/17 09/13/20 Prosper Patrick MD [address] [place] [address] [place] [address] Insurance Assigned Provider 09/28/17 01/10/19 Prosper Patrick MD [address] [place] [address] [place] [address] Insurance Assigned Provider 10/07/19 09/13/20 Jack Buitrago MBBS, MD [address] [place] [phone] [email or web address] Primary Oncologist Medical Oncology 11/17/20 Prosper Patrick MD 14 [facility] [address] [place] [address] Insurance Assigned Provider 10/07/19 10/07/21 Sherine Osborn MD 15 [facility] [address] [place] [address] Insurance Assigned Provider 10/07/21 10/06/22 Joan Haley MD 234 [facility], [address] [place] [address] [email or web address] Insurance Assigned Provider 10/05/23 Fahad Knott MD [address] [place] [phone] [email or web address] Endocrinology 11/27/22 Gilmer Chahal MD [address] [place] [address] [email or web address] Gastroenterology 11/27/22 Hasmukh Rubio MD [address] [address] Cardiology 11/27/22 Kalpana Islas, OT 30 [place] [address] [email or web address] Transitions Acoustical EngineerCeramics Instructor Therapy 08/13/24 08/24/24 documented as of this encounter Additional Source Comments The information contained in this document represents components of the legal health record. It is not the complete legal health record.[facility]
--- OUTSIDE RECORDS SUMMARY | 2025-03-18 13:32 | XMS_ITS | Encounter Summary ---
Author Organization [facility] Address [address] [facility] [address] [place] [address] Phone Care Team Providers Care Bridge Tender Name Role Phone Jack Buitrago MD Unavailable Joan Haley MD Unavailable [phone] Fahad Knott MD Unavailable Gilmer Chahal MD Unavailable Hasmukh Rubio MD Unavailable Joan Haley MD Primary Care Provider + Reason for Visit * Reason Onset Date Comments OV fax 12/23/2024 Encounter Details Date Type Department Care Team (Late st Contact Info) Description 12/23/2024 Telephone [facility] [address] [place], [place] [phone] Joan Haley MD 234 [facility], [address] [place], [place] [id number] [email or web address] OV fax Social History Tobacco Use Types Packs/Day Years [...] 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, CHAIR POST MACHINE OPERATOR, FEMI) 07/30/2018 Comments No Sex and Gender Information Value Date Recorded Sex Assigned at Female 09/14/2020 9:15 AM EDT Legal Sex Female 10:01 PM EDT Gender Identity Female 08/31/2024 10:46 AM EST Sexual Orientation Lesbian or Meracdo 09/14/2020 9: 15 AM EDT 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 Fax number is [phone]. Please contact and advise. Central Support Custom Van Converter (Please do not reply to this user; this inbox is not monitored.) Thank you. * Robyn [place] - 12/23/2024 12:30 PM EDT Office note faxed and confirmation received * Santa Man - 12/23/2024 11:57 AM EDT PT has albina Hutchinson 12/24/2024 they need OV note from 08/06/2023 to be faxed to [phone] Central Support Custom Van Converter (Please do not reply to this user; this inbox is not monitored.) Thank you. documented in this encounter Plan of Treatment Upcoming Encounters Date Type Department Care Team (Late st Contact Info) Description 03/19/2025 4:15 PM EDT Appointment [facility], Bone Density - [facility] 30 [place] [address] Fahad Knott MD [address] [place] [address] 05/04/2025 11:40 AM EST Office Visit [facility] [address] [facility] 3rd Floor, [address] [place] [address] Josias Vasquez MD 50 [place] [address] [email or web address] documented as of this encounter Visit Diagnoses Not on filedocumented in this encounter Additional Health Concerns Assessment Noted Time PHQ-2 Depression Total Score: 2 03/12/20 24 11:24 PM EDT documented as of this encounter Care Teams Bridge Tender Relationship Specialty Start Date End Date Joan Haley MD [address] [place] [address] 7 [place] [address] PCP - General Family Medicine 11/28/23 Jack Buitrago MBBS, MD [address] [place] [phone] [email or web address] Primary Oncologist Medical Oncology 11/17/20 Joan Haley MD [address] [place] [address] 7 [place] [address] Insurance Assigned Provider 10/05/23 Fahad Knott MD [address] [place] [phone] [email or web address] Endocrinology 11/27/22 Gilmer Chahal MD [address] [place] [address] [email or web address] Gastroenterology 11/27/22 Hasmukh Rubio MD [address] [place] [address] [email or web address] Cardiology 11/27/22 documented as of this encounter Additional Source Comments The information contained in this document represents components of the legal health record. It is not the complete legal health record.[facility]
--- OUTSIDE RECORDS SUMMARY | 2025-03-18 13:32 | XMS_ITS | Encounter Summary ---
Author Organization [facility] Address [address] [facility] [place] [facility] [address] [place] [address] Phone Care Team Providers Care Dairy Powder Mixer Operator Name Role Phone Jack Buitrago MD Unavailable Joan Haley MD Unavailable [phone] Fahad Knott MD Unavailable Gilmer Chahal MD Unavailable Hasmukh Rubio MD Unavailable [phone] Joan Haley MD Primary Care Provider + Encounter Details Date Type Department Care Team (Latest Contact Info) Description 09/30/2024 Transcribe Orders Virtual Department 30 [place] [address] Fahad Knott MD [address] [place] [address] [email or web address] Asymptomatic menopausal state (Primary Dx) Social History Tobacco Use Types [...] received? Master's degree (e.g., MA, MS, Olinda, Daniel, DIRECTOR OF NEUROLOGY, FEMI) 07/30/2018 Comments No Sex and Gender [...] Info) Description 03/19/2025 4:15 PM EDT Appointment [facility], Bone Density - [address] [address] Fahad Knott MD [address] [place] [address] 05/04/2025 11:40 AM EST Office Visit [facility] [address] [place] [address] [address] [facility], [address] [place] [address] Josias Vasquez MD [address] [place] [phone] [email or web address] Scheduled Orders Name Type Priority Associated Diagnoses Orde r Schedule DXA Screening Imaging Routine Asymptomatic menopausal state Expected: 10/30/2024, Expires: 09/30/2025 documented as of this encounter Visit Diagnoses Diagnosis Asymptomatic menopausal state- Primary documented in this encounter Additional Health Concerns Assessment Noted Time PHQ-2 Depression Total Score: 2 03/12/20 24 11:24 PM EDT documented as of this encounter Care Teams Dairy Powder Mixer Operator Relationship Specialty Start Date End Date Joan Haley MD [address] [facility], [address] [place] [address] PCP - General Family Medicine 11/28/23 Jack Buitrago MBBS, MD [address] [place] [address] [email or web address] Primary Oncologist Medical Oncology 11/17/20 Joan Haley MD [address] [facility] [address] [place] [address] [email or web address] Insurance Assigned Provider 10/05/23 Fahad Knott MD [address] [place] [phone] [email or web address] Endocrinology 11/27/22 Gilmer Chahal MD [address] [place] [address] [email or web address] Gastroenterology 11/27/22 Hasmukh Rubio MD [facility] 301 [place] [address] [email or web address] Cardiology 11/27/22 documented as of this encounter Additional Source Comments The information contained in this document represents components of the legal health record. It is not the complete legal health record.[facility]
--- OUTSIDE RECORDS SUMMARY | 2025-03-18 13:32 | XMS_ITS | Encounter Summary ---
Author Organization [facility] Address [address] [facility] [address] [place] [address] Phone Care Team Providers Care Casting House Laborer Name Role Phone Jack Buitrago MD Unavailable [phone] Sherine Osborn MD Unavailable [phone] Joan Haley MD Primary Care Provider + Joan Haley MD Unavailable Joan Haley MD Primary Care Provider + Fahad Knott MD Unavailable Gilmer Chahal MD Unavailable Hasmukh Rubio MD Unavailable Joan Haley MD Primary Care Provider + Kalpana Islas OT Unavailable [phone] Encounter Details Date Type Department Care Team (Late st Contact Info) Description 01/30/2022 Procedure Pass Non-Invasive Cardiology [address] [place] [address] Social History Tobacco Use Types Packs/Day Years [...] high school, GED, job training, learning the [place] language, technical skills, or developing parenting skills)? [...] 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, MAINTENANCE CONTROLLER, FEMI) 07/30/2018 Comments No Sex and Gender [...] Info) Description 03/19/2025 4:15 PM EDT Appointment [facility], [address] [place] [address] Fahad Knott MD [address] [place] [address] 05/04/2025 11:40 AM EST Office Visit [facility] [address] [place] [facility] 3rd Floor, [address] [place] [address] Josias Vasquez MD 50 [place] [address] [email or web address] documented as of this encounter Visit Diagnoses Not on filedocumented in this encounter Additional Health Concerns Infection Onset Date Last Indicated Resolved Time CoV-Risk 03/28/2022 03/28/2022 04/08/2022 1:22 AM EDT CoV-Risk Comment:Per Ambulatory Triage Form 07/10/2023 07/10/202307/21 1:22 AM EST CoV-Risk 09/07/2024 09/07/2024 09/18/2024 1:21 AM EDT Assessment Noted Time PHQ-2 Depression Total Score: 1 11/24/19 22 8:16 AM EDT documented as of this encounter Care Teams Casting House Laborer Relationship Specialty Start Date End Date Joan Haley MD 15 [facility] 201 [place] [address] PCP - General Family Medicine 11/22/21 11/26/22 Joan Haley MD 15 [facility] 201 [place] [address] PCP - General Family Medicine 11/27/22 11/27/23 Joan Haley MD [address] [place] [address], [address] [place] [address] PCP - General Family Medicine 11/28/23 Jack Buitrago MBBS, MD [address] [place] [address] [email or web address] Primary Oncologist Medical Oncology 11/17/20 Sherine Osborn MD 15 [facility] 201 [place] [address] Insurance Assigned Provider 10/07/21 10/06/22 Joan Haley MD [address] [place] [address] 7 [place] [address] Insurance Assigned Provider 10/05/23 Fahad Knott MD [address] [place] [phone] [email or web address] Endocrinology 11/27/22 Gilmer Chahal MD [address] [place] [address] Gastroenterology 11/27/22 Hasmukh Rubio MD 22 [facility] 301 [place] [address] Cardiology 11/27/22 Kalpana Islas, OT 30 [place] [address] Transitions Manager Of Organizational DevelopmentRides Attendant Therapy 08/13/24 08/24/24 documented as of this encounter Additional Source Comments The information contained in this document represents components of the legal health record. It is not the complete legal health record.[facility]
--- OUTSIDE RECORDS SUMMARY | 2025-03-18 13:32 | XMS_ITS | Clinical Summary ---
Author Organization [facility] Address [address] [place] [phone] Phone Care Team Providers Care Public Transit Bus Driver Name Role Phone Jack Buitrago MD Unavailable [phone] Joan Haley MD Unavailable [phone] Fahad Knott MD Unavailable Jhoana Huynh MD Unavailable Hasmukh Rubio MD Unavailable Joan Haley MD Primary Care Provider + Allergies Active Allergy Reactions Criticality Noted Date Comments Cat Dander 08/25/2024 Egg Derived 08/16/2024 House Dust Sneezing Low 04/28/2024 Lactose GI Upset Low 10/27/2021 Liraglutide Other (See Comments) 10/29/2024 Victoza Lisinopril Cough Low 08/08/2017 Metformin Diarrhea 10/29/2024 metformin Pollen Extracts Sneezing Low 04/28/2024 Metoclopramide Hcl Mental Status Change 10/29/2024 Patient states she felt she was having a mental breakdown Ysygscp-Fnu-Igy Reductase Inhibitors Other (See Comments) Low 07/30/2018 Joint pain Venom-Honey Bee Other (See Comments) 10/29/2024 honey bee venom Ondansetron Hcl Mental Status Change 10/29/2024 Medications insulin pen needles, disposable, 31 gauge x 11/13 Ndle Inject 1 each under the skin daily. E11.22 90 each 3 9 Active buPROPion (WELLBUTRIN XL) 300 MG ER 24 hr tablet Take 300 mg by mouth daily. Active ascorbic acid, vitamin C, (VITAMIN C) 1000 MG tablet Take 1,000 mg by mouth daily. Active cholecalciferol (VITAMIN D3) 25 MCG (1,000 unit) tablet Take 1,000 Units by mouth daily. Active DEXCOM G6 TRANSMITTER Lisa as directed. 2 Active DEXCOM G6 SENSOR Lisa as directed. 2 Active REPATHA SURECLICK 140 mg/mL PnIj subcutaneous pen injector Inject 140 mg under the skin every 14 (fourteen) days. 4 Active dextroamphetamin e-amphetamine (ADDERALL XR) 30 MG 24 hr capsule Take 1 capsule (30 mg total) by mouth every morning. 7 capsule 5 Active ibuprofen (ADVIL,MOTRIN) 800 MG tablet Take 800 mg by mouth 3 (three) times a day. 5 Active gabapentin (NEURONTIN) 100 MG capsuleIndicatio ns:Acute right-sided low back pain with right-sided sciatica Take 2 capsules (200 mg total) by mouth 3 (three) times a day. 180 capsule 2 5 Active Additional Information Patient taking differently:200 mg Oral 3 times daily,4 tabs daily, Reported on 11/26/2024 acetaminophen (TYLENOL) 325 mg tablet Take 325 mg by mouth every 6 (six) hours as needed for pain (specific location in comments) (back/hip). 5 Active escitalopram oxalate (LEXAPRO) 10 MG tablet Take 5 mg by mouth every morning. 5 Active semaglutide (OZEMPIC) 1 mg/dose (4 mg/3 mL) subcutaneous injection pen Inject under the skin every 7 days. Active losartan (COZAAR) 50 MG tabletIndication s:Essential hypertension Take 1 tablet by mouth once daily 90 tablet 5 Active insulin glargine (LANTUS SOLOSTAR U-100 INSULIN) 100 unit/mL (3 mL) InPn injection pen Inject 20 Units under the skin nightly at bedtime. 18 mL 3 5 Active HUMALOG KWIKPEN INSULIN 100 unit/mL kwikpen Take three times daily before each meal based on BG and carb intake, max total daily dose 15 units 15 mL 3 5 Active Active Problems Patient Care Coordination No te Formatting of this note migh t be different from the original. Problem Noted Date Diagnosed Date Sinus node dysfunction 10/29/2024 Assessment & Plan (10/29/2024 11:33 AM EDT): Cardiac pacemaker in situ. Spinal stenosis of lumbar re gion without neurogenic claudication 09/25/2024 Sciatica of right side 08/12/2024 Assessment & Plan (08/13/2024 12:35 AM EST): -Pain began after heavy lifting and movement of heavy objects sudden onset on 08/10/2024 -Numbness and tingling persisted with subjective worsening and radiation to the right lower extremity. -Initially treated with oxycodone without significant improvement. -Atraumatic, minimal reduced strength secondary to pain, sensation intact, no cauda equina type symptoms including no urinary or bowel incontinence, afebrile no midline spine tenderness -CT lumbar spine performed revealed no No acute fracture or traumatic malalignment, mild lumbar dextrocurvature and chronic mild degenerative retrolisthesis of L2 and L3 and grade 1 degenerative anterolisthesis of L4 and L5. -Suspect primarily to be sciatica type pain, no concerning symptoms or signs indicating surgical evaluation is needed Plan: Recommend conservative measures with physical therapy evaluation, pain control as needed with short course of opiates, NSAIDs as tolerated Recommend follow-up PCP Can consider MRI if persistent pain without recovery If patient develops symptoms including significant weakness, fevers, bowel or bladder changes, or any other concerning symptoms or signs would recommend further evaluation and return to the ED. 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 COVID-19 virus infection 03/10/2022 Assessment & Plan (03/10/2022 8:27 PM EDT): Virtual Visit Attestation Modality: interactive audio (phone only) Provider Location: home / other Patient Location: home Patient State: [place] E&M Billing based on time ([id number]): Yes Total time spent on date of service (min): 8 Time spent with patient during visit (min): 10 I personally spent the total time as documented on care for this patient on the date of the encounter, of which the time spent with the patient during the encounter has been separately documented. Tomeka tested positive for COVID today. She has mild symptoms but would like a prescription for paxlovid. Guidance given regarding his medication, and has side effects. I wrote for this medication today. She will call if there are any other issues or concerns or if this gets worse. She understands and agrees. 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 Discussed weight gain/loss post menopause and metabolic changes Discussed physical stress responses Check lanbs including TSH Vertigo 02/05/2019 Assessment & Plan (02/05/2019 5:42 PM EDT): Will refill prescription for meclizine. Discussed vestibular therapy, but patient declines at this time. Follow-up as needed. Seasonal allergic rhinitis 02/05/2019 Assessment & Plan (02/05/2019 5:40 PM EDT): Continue with regular allergy shots with local finishing room operator. Follow-up if worsening. Bowel habit changes 07/31/2018 Assessment & Plan (07/31/2018 8:47 AM EST): Will do referral to Dr. Huynh of gastroenterology to discuss symptoms and due to need for repeat colonoscopy. Continue fiber supplements. F/u in office as needed. Psychophysiologic insomnia 06/11/2018 Assessment & Plan (07/31/2018 8:46 AM EST): Some ongoing sleep issues. Will start Gabapentin for sleep and pain. Pt instructed on use, side effects, and adverse effects. F/u in 1 month for reevaluation. Attention deficit hyperactiv ity disorder (ADHD), predominantly inattentive type 06/11/2018 Assessment & Plan (07/31/2018 8:47 AM EST): Stable on current therapies. Continue routine f/u with Dr. Bergman of psychiatry. Osteoarthritis of multiple joints 09/09/2017 Assessment & Plan (02/05/2019 5:41 PM EDT): Generally stable on current therapies. Encourage patient to try CBD oil to area of bone spurs to see if this might help with inflammation and pain. Follow-up in 6 months or sooner as needed. Assessment & Plan (08/21/2018 2:13 PM EST): Ongoing pain, although at baseline at this time. Pt was unable to fill prescription of Gabapentin for unclear reason, will look into this further. Continue routine chiropractic treatments if she feels this is helpful. May also consider seeing Dr. Isidro, osteopathic provider if pain continues to be worsening. Pt verbalizes understanding and in agreement with plan. Assessment & Plan (07/31/2018 8:46 AM EST): High levels of chronic pain, which is consistent with arthritis. Will trial pt on Gabapentin for her chronic pain which may also help with her chronic insomnia Pt also urged to consider f/u with Dr. Holman to discuss cortisone injections in left ankle and/or hip. Continue routine chiropractic treatments if she feels this is helpful. Pt verbalizes understanding and in agreement with plan. Assessment & Plan (12/10/2017 11:24 AM EDT): Continue current therapies, f/u with Dr. Holman as scheduled. Pain of left hip joint 08/07/2017 Chronic left shoulder pain 08/07/2017 Chronic pain of left knee 08/07/2017 Class 1 obesity due to exces s calories with serious comorbidity and body mass index (BMI) of 32.0 to 32.9 in adult 08/07/2017 Chronic fatigue 08/07/2017 Trigger finger of right thumb 08/07/2017 Complete heart block 06/04/2017 Assessment & Plan (10/29/2024 11:31 AM EDT): Cardiac pacemaker in situ. Assessment & Plan (11/25/2021 12:04 AM EDT): W/ pcer, followed by Dr. Richard Chondromalacia of left knee 06/04/2017 Recurrent major depressive disorder, in partial remission 06/04/2017 Assessment & Plan (11/25/2021 12:09 AM EDT): Seeing psychiatr in [place] Assessment & Plan (07/31/2018 8:47 AM EST): Stable on current therapies. Continue routine f/u with Dr. Bergman of psychiatry. History of colon polyps 06/04/2017 History of diverticulitis 06/04/2017 Hyperlipidemia 06/04/2017 Assessment & Plan (11/28/2024 10:11 AM EDT): No recent lipid panel to review, last panel on file from 2018 Goal LDL <70 with DM On Repatha Follows with cardiology Assessment & Plan (10/29/2024 11:33 AM EDT): Will request most recent lab work. Patient is currently on Repatha which is prescribed by her engineering technologist. Assessment & Plan (07/31/2018 8:42 AM EST): Stable, off medications. Repeat fasting lipid in 1 year. Presence of cardiac pacemaker 06/04/2017 Assessment & Plan (10/29/2024 11:33 AM EDT): Device interrogated today. 10.1-year battery life. RA and RV pacing stable. RA sensing stable. V paced at VVI 30 bpm. 1 nonsustained VT lasting 7 beats. A-fib burden less than 0.1% with 0 episodes. AP 42.4% and COMPUTATIONAL SCIENTIST 99.9%. No parameter changes. Plan: Continue quarterly remote checks In office device check in 6 months Assessment & Plan (05/08/2022 4:25 PM EST): She has normal pacing, sensing and thresholds on her device today. She does have a little over 6 months left of battery life. I will have her continue with another remote check in 3 months. I will book an in person appointment for 6 months/day for 3-month remote check shows shortened battery life to LANE I will see her sooner. Assessment & Plan (07/31/2018 8:41 AM EST): Routine pacemaker checks with Dr. Yu. F/u as needed. Type 2 diabetes mellitus with renal complication 06/04/2017 Assessment & Plan (11/28/2024 10:22 AM EDT): Long history of type 2 diabetes diagnosis, though interesting is very insulin sensitive and has strong family history of type 1 diabetes, partial pancreatectomy in 2020 related to neuroendocrine tumor of the pancreas Discussed that lab testing from an endocrine standpoint for pancreatic function would be C-peptide testing to see if the pancreas is still making adequate amounts of insulin, however it would also be reasonable to test antibodies to rule out autoimmune diabetes Reviewed that there may need to be testing of the exocrine function of the pancreas, but would defer this to GI (or PCP if needing referral to GI) On basal/bolus insulin regimen, frequent dips on CGM data even when no prandial insulin is given, likely is receiving too much insulin from basal, encouraged decreasing dose to 16 units, if fasting BG is >140 mg/dl can increase to 18 units Provided brief instructions for pre-op instructions for insulin, encouraged Tomeka to reach out to use when she is closer to surgery to offer more accurate recommendations based on current blood sugar control Ozempic is noted in the chart, would not recommend this due to history of neuroendocrine cancer, PG message sent to patient after visit Tomeka will have labs done at her convenience, encouraged to have them done fasting if possible - glucose, cpeptide, and antibody testing ordered Encouraged continued efforts at balanced, mindful eating Encouraged continued efforts at increasing physical activity as tolerated Advised to contact office with any questions or concerns. We will follow up in 3-4 months, sooner by phone/PG with lab results Assessment & Plan (11/25/2021 12:06 AM EDT): Followed by Dr. Knott Lab due, order e/ CC to endocrine Assessment & Plan (08/15/2021 4:30 PM EST): Those hypoglycemic episodes sound highly concerning and I agree that a continuous glucose monitor would contribute to her safety and she might also do well with an insulin pump. She will see Dr. Knott shortly and I encouraged her to ask him to refer her to the assistant curator at [facility] who has an excellent reputation. Assessment & Plan (10/14/2020 11:44 AM EDT): Check A1c's. Continue insulin as per primary care provider. Assessment & Plan (02/05/2019 5:41 PM EDT): Overall improvement with adding Ozempic to current therapy, although concerned about cost of medication. Continue follow-up with Dr. Knott. Would recommend hemoglobin A1c every 3 months. Follow-up in office in 6 months for annual wellness exam. Assessment & Plan (08/21/2018 2:11 PM EST): F/u with Dr. Gutierrez as scheduled. Continue Lantus and Jardiance. Pt's renal function at baseline, f/u with Dr. Whiteside of nephrology as scheduled. Assessment & Plan (07/31/2018 8:43 AM EST): Slightly elevated Hgb A1C, although pt reports a great deal of frustration due to labile BGLs and frequent yeast infections from Jardiance. Will do referral to Dr. Gutierrez of endocrinology for further evaluation and treatment of pt's diabetes. She would like to discuss continuous glucose monitoring with engineering technologist. Pt's renal function at baseline, f/u with Dr. Whiteside of nephrology as scheduled. Assessment & Plan (12/10/2017 11:20 AM EDT): Improving Hgb A1C with use of Jardiance and Lantus. Continue f/u at the [facility]. Repeat A1C in 6 months. Pt verbalizes understanding and in agreement with plan. Essential hypertension 06/04/2017 Assessment & Plan (11/28/2024 10:10 AM EDT): Blood pressure borderline today BP Goal < 130/80 On antihypertensive regimen that includes ARB Follows with cardiology Assessment & Plan (10/29/2024 11:31 AM EDT): Blood pressure well-controlled with losartan. Patient states that she has occasional elevated blood pressures at home but is largely well-controlled. Will continue her current dose of losartan. Plan: Continue losartan 100 mg daily Follow-up in 6 months Assessment & Plan (11/25/2021 12:05 AM EDT): Well controlled Assessment & Plan (08/15/2021 4:29 PM EST): At goal by report but it really would have been nice to examine her in the office today or at a minimum to get a blood pressure measurement from a cuff. We agreed that I would mail her a paper prescription for a cuff which she can take to her local medical supply store. Ideally, she should measure her blood pressure 2 or 3 times a day for 1 week out of the month, each month. If her blood pressure remains at goal then she can see me in the office in 6 months for a wellness visit. Assessment & Plan (10/14/2020 11:44 AM EDT): Blood pressures controlled. Continue losartan. Assessment & Plan (02/05/2019 5:40 PM EDT): Stable on current therapies. Continue Cozaar. Assessment & Plan (07/31/2018 8:41 AM EST): Stable on current therapies. Continue Lisinopril. Assessment & Plan (12/10/2017 11:18 AM EDT): Stable on current therapies. Continue Lisinopril. History of vitamin D deficiency 06/04/2017 Assessment & Plan (02/05/2019 5:42 PM EDT): Encourage patient to restart vitamin D supplementation at 2000 IU daily. Will recheck vitamin D level in 3 months. Assessment & Plan (08/21/2018 2:08 PM EST): Elevated Vitamin D level on recent blood work. No s/s of Vitamin D toxicity. Advised to stop the high dose Vitamin D, reduce to 1000 iU daily and repeat lab test in 3 months. Pt verbalizes understanding and in agreement with plan. Assessment & Plan (07/31/2018 8:44 AM EST): Vitamin D level from 05/2018 elevated. Will repeat level in 1 month, if still elevated she will need to decrease her Vitamin D supplementation. Pt verbalizes understanding and in agreement with plan. Assessment & Plan (12/10/2017 11:19 AM EDT): Will continue Vitamin D replacement 50,000 units weekly. Repeat lab work in 6 months. Resolved Problems Problem Noted Date Diagnosed Date Resolved Date Neuroendocrine carcinoma of pancreas 11/24/2020 08/15/2021 Assessment & Plan (03/07/2021 10:20 AM EDT): Patient is feeling well and has elective [...] have some lab work done at [facility] and she should let me know if [...] couple of days to get this done. Neuroendocrine tumor of pancreas 11/18/2020 11/24/2020 Overview (11/18/2020): Suggestive CT 08/2020, confirmed on EUS 11/08/20 Dr Sky [facility] Assessment & Plan (11/18/2020 9:57 AM EDT): Discussed that neuroendocrine tumor is NOT the same as the more common exocrine cancer that is so often and so quickly fatal. She does not have symptoms of any kind of hormonal activity except that her abdominal pain could have represented peptic ulcer disease which would suggest need for testing for a gastrinoma. Her EUS showed no ulcers and random bx was negative H. Pylori, but it had been 2 months on a PPI so an ulcer could reasonably be expected to have healed. I suggest she discuss testing for gastrinoma with her oncologist, and testing for genetic syndromes such as MEN-1, which would affect her own health in terms of surveillance needs for other cancers and would also provide important information for family members (she has nieces, nephews and cousins who could be affected). I explained to Tomeka that the prognosis is most likely quite good and in the flurry of obtaining appropriate cancer care she should be sure not to neglect her other chronic health problems. Because of this question of gastrinoma I am going to leave her on the PPI for now but after any needed testing has been done she should discuss possibly tapering off it with her oncologist; stopping cold turkey puts her at risk of rebound acid reflux. Abdominal pain, epigastric 09/15/2020 0 03/01/2021 Assessment & Plan (09/15/2020 2:46 PM EDT): 70-year-old female with longstanding type 2 diabetes [...] symptoms are not consistent with a recurrence. Encounter for general adult medical examination with abnormal findings 07/31/201808/21 Assessment & Plan (07/31/2018 8:49 AM EST): Chronically ill female, due to pain and diabetes. Pt is up to date on immunizations, although encouraged her to discuss Shingrix vaccine with her local pharmacist. Due for mammogram, bone density test, and colonoscopy; orders placed. Advised on healthy diet, regular exercise, and to consume at least 1200 mg Calcium and 2000 iU Vitamin D daily by diet and/or supplementation. Depressive disorder 09/16/19 21 Overview (09/15/2020): psych Colleen Bergman in [place] Osteoarthritis 09/15/2020 Hypertensive disorder 2020 Attention deficit hyperactiv ity disorder (ADHD) 09/15/2020 Encounters Date Type Department Care Team Description 03/18/2025 12:02 PM EDT Hospital Encounter [facility] [address] [place] [address] Rosio Small CNP 02/04/2025 Orders Only [facility] [address], [address] [place] [address] ProviderTeetee MD 01/26/2025 Refill [facility] [address] [place] [address] Rosio Small CNP Medication Refill (Lantus & Lispro) 01/13/2025 Refill [facility] [address] [place] [address] Joan Haley MD Medication Refill 2025 Orders Only [facility] [address] [place] [address] [address] Floor, [address] [place] [address] Provider, MD Teetee 12/29/2024 3:24 PM EDT - 12/29/2024 11:59 PM EDT Hospital Encounter [facility] [address] [place] [address] Fide Westbrook DNP Discharge Disposition: Home or Self Care 12/23/2024 Telephone [facility] [address] [place] [address] Joan Haley MD OV fax 10/29/2024 Procedure [facility] [address] [place] [address] from Last 3 Months Immunizations Immunization Administration Dates Next Due COVID-19 (Pre-04/22) Moderna Vaccine, Bivalent 6mo+ 10/19/2022,03/26/2022 COVID-19 (Pre-04/22) Moderna Vaccine, mRNA, PF 02/12/2021,09/06/2020,08/09/2020 COVID-19 (Pre-04/22) Pfizer Vaccine, mRNA, PF 09/01/2021,02/12/2021 COVID-19, Unspecified Formulation 09/04/2020 Hib,PRP-T 03/03/2021 INFLUENZA, SPLIT VIRUS, TRIV ALENT W/ PRESERVATIVE IM 02/23/2015,03/24/2013,04/25/2009,03/02,06/12/2007,05/31/2006 Influenza High-Dose Quadriva lent Preservative Free IM 04/18/2023,05/15/2021,04/28/2020 Influenza High-Dose Trivalen t Preservative Free IM 05/22/2024,04/30/2019,03/14/2017 Influenza Quadrivalent Prese rvative Free IM 05/05/2018,02/23/2015 Influenza, Unspecified Formulation 05/22,03/24/2013,04/25/2009,03/02,06/12/2007,05/31/2006 Meningococcal B 02/28/2021 Meningococcal B, OMV (MenB-4C) 02/28/2021 Meningococcal MCV4P 02/28/2021 Pneumococcal conjugate PCV13 02/28/2021,07/16/19 18,03/21/2016 Pneumococcal polysaccharide PPSV23 09/02/2019, Pneumococcal, Unspecified Formulation 03/09/2005 RSV Vaccine (bivalent) 11/08/2023 Td (adult),2 Lf Tetanus Toxo id, PF, Adsorbed 02/07/2015 Td, unspecified formulation 02/07/2015 Zoster live 09/08/2012 Family History Medical History Relation Comments Congenital heart disease Brother 1 Bladder Cancer Brother 2 Cancer Brother 2 penile Depression Brother 2 Hypertension Brother 2 Alcohol abuse Father Bladder Cancer Father Heart disease Father Colon cancer Mother Smoker Diverticulitis Mother Breast cancer Paternal Aunt Heart disease Paternal Grandfather Meningitis Paternal Grandfather Diabetes Paternal Grandmother Relation Status Comments Brother 1 (Age 71) Brother 2 Father (Age 92) Maternal Grandfather Maternal Grandmother Mother (Age 80) Paternal Aunt Paternal Grandfather (Age 40) Paternal Grandmother Social History Tobacco Use Types Packs/Day Years Used Date Smoking Tobacco: Never Smokeless Tobacco: Never Tobacco Cessation:Counseling Given: Not Answered Alcohol Use Standard Drinks/Week Comments Never 0 [...] 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, DEPUTY PROGRAM MANAGER, FEMI) 07/30/2018 Comments No Sex and Gender [...] Sign Reading Time Taken Comments Blood Pressure 132/76 11/26/2024 10:05 AM EDT Pulse 100 11/26/2024 10:05 AM EDT Temperature 37.1 C (98.7 F) 10/16/2024 11:15 AM EDT Respiratory Rate 17 10/16/2024 11:15 AM EDT Oxygen Saturation 98% 11/26/2024 10:05 AM EDT Inhaled Oxygen Concentration - - Weight 84.6 kg (186 lb 9.6 oz) 11/26/2024 10:05 AM EDT Height 160 cm (5' 2.99 ) 11/26/2024 10:05 AM EDT Body Mass Index 33.06 11/26/2024 10:05 AM EDT Plan of Treatment Upcoming Encounters Date Type Department Care Team (Late st Contact Info) Description 03/19/2025 4:15 PM EDT Appointment [facility], Bone Density - [address] [address] Fahad Knott MD [address] [place] [id number] 05/04/2025 11:40 AM EST Office Visit [facility] [address] [facility] [address], [address] [place] [address] Josias Vasquez MD [address] [place] [id number] Health Maintenance Due Date Last Done Comments HEPATITIS C SCREENING 1969 COLOGUARD 01/12/1996 FIT TEST 01/12/1996 FOBT 01/12/1996 SIGMOIDOSCOPY 01/12/1996 VIRTUAL COLONOSCOPY 01/12/1996 ZOSTER VACCINES (2 of 3) 11/03/2012 09/08/2012 DIABETIC EYE EXAM 01/20/2021 01/21/2020, , 02/12/2018 INFLUENZA VACCINE (#1) 2025 , 04/18/2023, 04/18/2023, Additional history exists Adult Td,Tdap Booster 02/07/2025 02/07/2015, 015 COVID-19 VACCINE ( season) 2025 03/16/2024, 11/08/2023, 04/18/2023, Additional history exists DEPRESSION SCREENING 03/12/2025 03/12/2024 BLOOD PRESSURE 05/29/2025 11/26/2024 HEMOGLOBIN A1C 05/29/2025 11/26/2024, 05/31, 04/16/2024, Additional history exists LIPID PANEL 06/16/2025 06/16/2024, 05/31, 04/16/2024, Additional history exists CREATININE LEVEL 09/07/2025 09/07/2024, , 08/11/2024, Additional history exists POTASSIUM LEVEL 09/07/2025 09/07/2024, 08/01, 08/11/2024, Additional history exists MAMMOGRAM 09/24/2025 09/25/2023, 12/29, 12/24/2018, Additional history exists COLONOSCOPY 11/12/2028 11/12/2018, 09/23/2013 COLORECTAL CANCER SCREENING 11/12/2028 OSTEOPOROSIS SCREENING INITIAL (ONE-TIME) Completed 12/24/2018 MENINGOCOCCAL VACCINES (ACWY) Aged Out 02/28/2021 No longer eligible based on patient's age to complete this topic MENINGOCOCCAL VACCINES (B) Aged Out 02/28/2021 N o longer eligible based on patient's age to complete this topic PNEUMOCOCCAL VACCINES (50+ years) Completed 02/28/2021, 09/02/2019, 07/16/2017, Additional history exists HIB VACCINES Aged Out 03/03/2021 No longer eligi ble based on patient's age to complete this topic RSV VACCINE Completed 11/08/2023 SMOKING STATUS SCREENING (Once After 26 Yrs) Completed 10/29/2024 HEPATITIS A VACCINES Aged Out No long er eligible based on patient's age to complete this topic Medical Devices Implanted Type 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 Device Identifier Shelf Expiration Date Model / Serial / Lot Capsure Fix Mri Lead Lead Right Atrium [employer] 5086-52 / / Capsure Fix Mri Lead Lead Ventricle [employer] 5086-58 / / Medtronic Sonya- 3 Implanted:08/2022 (Quantity not on file) Pacemaker [employer] MRI [id number] / [id number] / Procedures Procedure Name Priority Date/Time Associated Diagnosis Comments MISCELLANEOUS LAB TEST Routine 03/18/2025 12:39 PM EDT Type 2 diabetes mellitus with hypoglycemia without coma, with long-term current use of insulin OUTSIDE EP STUDY Routine 01/24/2025 1:12 PM EDT TTE COMPREHENSIVE Routine 12/29/2024 4:0 9 PM EDT Complete heart block Presence of cardiac pacemaker POCT HEMOGLOBIN A1C Routine 11/26/2024 1 0:21 AM EDT Type 2 diabetes mellitus with hypoglycemia without coma, with long-term current use of insulin BASIC METABOLIC PANEL STAT 09/07/2024 10:19 AM EDT BI MAMMOGRAM SCREENING WITH TOMOSYNTHESIS WITH CAD (BILATERAL) Routine 09/25/2023 10:51 AM EDT Encounter for screening mammogram for malignant neoplasm of breast HM DIABETES EYE EXAM FOR RESULT ENTRY ONLY Routine 01/21/2020 LIPID PANEL Routine 02/02/2019 10:24 AM EDT Hyperlipidemia Laboratory examination ordered as part of a routine general medical examination BD DXA AXIAL (SPINE) WITH HIP Routine 12/24/2018 11:58 AM EDT Encounter for general adult medical examination with abnormal findings ENDOSCOPY, COLON 11/12/2018 8:22 AM EDT from Last 3 Months or Most Recently Relevant to Health Maintenance Results * Outside EP Study Report Only (01/24/2025 1:12 PM EDT) us Historical Provider MD [facility] P[facility] OROURKE Final Result * TTE COMPREHENSIVE (12/29/2024 4:09 PM EDT) Height 160 cm Weight 85 kg Systolic BP 132 mmHg Diastolic BP 76 mmHg Left Atrium Dimension Anterior-Posterior 39 15 - 40 mm Interventricular Septum Thickness 10 6 - 11 mm Left Ventricle Internal Diameter End Diastole 48 37 - 52 mm Left Ventricle Internal Diameter End Systole 34 <35 mm Left Ventricular Outflow Tract Diameter 21.0 mm Left Ventricular Posterior Wall Thickness 8 6 - 11 mm Left Ventricle Ea Lateral Wave Speed 8.4 cm/s Left Ventricle Ea Septal Wave Speed 4.7 cm/s Ejection Fraction 57 50 - 75 Percent Aortic Valve Mean Gradient 4 mmHg Aortic Valve Time Velocity Integral 277.0 mm Aortic Valve Peak Velocity 1.4 m/s Aortic Valve Peak Gradient 8 mmHg Aortic Arch Diameter 25 mm Aortic Sinus Diameter 29 <40 mm Ascending Aorta Diameter 32 <36 mm Inferior Vena Cava Diameter 16 <21 mm Mitral Valve Deceleration Time 243 ms Left Ventricle A Wave Speed 90.0 cm/s Left Ventricle E Wave Speed 45.3 cm/s Pulmonary Valve Peak Velocity 1.4 m/s Pulmonary Valve Peak Gradient 8 mmHg Right Ventricle Basal Diameter 39 25 - 41 mm Tricuspid Valve Peak Velocity 1.2 m/s Raw LV EF% 50 % MV E/E' Tissue Velocity Lateral 5.39 Relative Wall Thickness 0.33 0.22 - 0.42 MV E/A ratio 0.5 MV E/e' septal 9.64 Left Ventricle E/e' Average 7.5 Aortic Valve Prosthetic Peak Gradient 8 mmHg Aortic Valve Prosthetic Mean Gradient 4 mmHg Aorta Sinus Index by Height 1.81 cm/m Aorta Sinus CSA index by Height 4.13 cm2/m Asc Aorta CSA Index by Height 5.02 cm2/m Right Ventricle to Right Atrium Pressure Gradient 6 mmHg Right Ventricle Peak Systolic Pressure (Assuming RAP 10) 16 mmHg MGB CV ECHO TV RVSP (ASSUMING RAP OF 5) 11 mmHg RVSP (Exclusive of RAP) 6 mmHg Pulmonic Valve Prosthetic Peak Gradient 8 mmHg Echo E/Ea 9.64 Body Surface Area 1.88 m2 Left Atrial Volume Index 18 16 - 34 mL/m2 Right Ventricle Peak Systolic Pressure 9 mmHg Right Ventricle TAPSE 25 >=17 mm Right Ventricle Pulse Doppler S Wave 8.2 >=9.5 cm/s Left Ventricle indexed to BSA 78.6 g/m2 Left Atrial Volume 33 mL Left Atrial Volume Index by Height 21 mL/m Right Atrium Area 13 cm2 Right Atrium Area index 7 cm2/m2 Aortic Valve Sinus Index by BSA 15 mm/m2 Ascending Aorta Index 17 mm/m2 Right Atrium Pressure Estimated 3 mmHg Ascending Aorta Index 17 mm Aortic Sinus Index 15 mm Ascending Aorta Diameter 17 mm Aortic Valve Sinus Index 1 15 19 - 27 mm AO ASC DIAM BSA INDEX 17.02 Anatomical Region Laterality Modality Heart Ultrasound Narrative 12/30/2024 7:18 AM EDT Images from the original result were not included. 1. The indication for the study is complete heart block. The estimated ejection fraction of the left ventricle is normal to low normal. It is calculated at 57% although in some views it does appear to be at least this much. Diastolic function was indeterminate there is normal left ventricular thickness and regional wall motion is normal. 2. Normal RV size and function. There is a pacing catheter evident in the right heart. 3. Trileaflet aortic valve there is no evidence of aortic stenosis, the ascending aortic root is normal size. 4. Trace mitral and trace tricuspid sufficiency, the PA pressure is normal on the study. 5. Normal pericardium and there is no prior echo available for comparison. Left Ventricle The left ventricle is normal in size. There is normal wall thickness. Left ventricular systolic function is at the lower limits of normal. The LV ejection fraction is 57% (calculated via the single dimension method). There are no wall motion abnormalities. LV diastolic function parameters are indeterminate in total. The E/A ratio is 0.5. The e' septal wave velocity is 4.7 cm/s. The e' lateral wave velocity is 8.4 cm/s. The average E/e' ratio is 7.5. Right Ventricle The right ventricle is normal in size. The RV basal dimension is 39 mm. There is normal right ventricular systolic function. TAPSE is 25 mm. RV S' wave is 8.2 cm/s. Left Atrium The left atrium is normal in size. The left atrial volume is 33 mL. There are normal flow patterns in the pulmonary vein. Right Atrium The right atrium is normal in size. The right atrial area is 13 cm2. The IVC is normal in size with normal inspiratory collapse. This is consistent with normal RA pressure. The IVC diameter is 16 mm (normal: <= 21 mm). Hepatic veins are normal in size. Mitral Valve There is thickening of the posterior mitral leaflet. There is no mitral stenosis. There is trace mitral regurgitation. Tricuspid Valve The tricuspid valve appears normal. There is no tricuspid stenosis. There is trace tricuspid regurgitation. The RV systolic pressure was calculated at 9 mmHg (using TR peak velocity of 1.2 m/s and assuming an RA pressure of 3 mmHg). Aortic Valve The aortic valve is tricuspid. There is leaflet thickening without stenosis. The aortic valve peak velocity is 1.4 m/s. The peak and mean aortic valve gradients are 8 mmHg and 4 mmHg respectively. There is no aortic regurgitation. The visualized portions of the thoracic aorta appear normal in size. Pulmonic Valve The pulmonic valve appears normal. Pericardium There is no pericardial effusion. There are no pleural effusions. General Findings The image quality was adequate. Technique(s) used in the evaluation: Color flow Doppler and Spectral Doppler. The predominant rhythm during the study was a paced rhythm. Comparison Findings There are no prior studies for comparison. IAS/IVS The interatrial septum appears normal. There is no evidence of patent foramen ovale (PFO). The interventricular septum appears normal. There is no evidence of a ventricular septal defect. Fide Westbrook [facility] CV ECHO ORDERABLES Final Result * (ABNORMAL) POCT Hemoglobin A1c (11/26/2024 10:21 AM EDT) Hemoglobin A1c 6.3(A) 4.2 - 5.6 % [facility] Other 11/26/2024 10:2 1 AM EDT Rosio Small [facility] POINT OF CARE TEST ORDERABLES Final Result Performing Organization Address City/State/[facility] Co de Phone Number [facility] [address] [place] [address], [facility] * (ABNORMAL) Basic metabolic panel (09/07/2024 10:19 AM EDT) SODIUM 135 133 - 146 mmol/L [facility] CHLORIDE 99 96 - 108 mmol/L [facility] POTASSIUM 3.9 3.3 - 5.1 mmol/L [facility] CO2 24 21 - 35 mmol/L [facility] BUN 10 6 - 19 mg/dL [facility] CREATININE 1.10 0.5 - 1.5 mg/dL [facility] GLUCOSE 175(H) 70 - 99 mg/dL [facility] CALCIUM 9.5 8.4 - 10.3 mg/dL [facility] EGFR 53(L) >59 mL/min/1.7 3m2 [facility] Comment:Estimated glomerular filtration rate calculated using the CKD-EPI refit equation. ANION GAP 16 10 - 20 mmol/L [facility] Blood 09/07/2024 10:1 9 AM EDT 09/07/2024 10:22 AM EDT us Rafael Salmeron MD LAB BLOOD ORDERABLES Zoie l Result [facility] [address] [place] [address] * BI MAMMOGRAM SCREENING WITH TOMOSYNTHESIS WITH CAD (BILATERAL) (09/25/2023 10:51 AM EDT) Anatomical Region Laterality Modality Breast Left, Breast Right, Breast Bilateral Bila teral Mammography 09/26/2023 1:19 PM EDT Impressions 09/26/2023 1:27 PM EDT No mammographic evidence of malignancy in either breast. Annual screening mammography is recommended. BI-RADS 2 BENIGN The patient will be notified of the results and recommendations. Narrative 09/26/2023 1:27 PM EDT BI MAMMOGRAM SCREENING WITH TOMOSYNTHESIS WITH CAD (BILATERAL) Additional patient information: Screening. COMPARISON: Comparison is made with relevant prior imaging. Breast composition: There are scattered areas of fibroglandular density. FINDINGS: Radiopaque device obscures underlying tissue in the upper posterior left breast/axillary region on the MLO view. Within this limitation: There has been no change in the mammographic findings since previous examination. No abnormal masses, suspicious calcifications, or other significant findings are identified mammographically in either breast. Procedure Note Maite Sharp MD, PhD - 09/26/2023 BI MAMMOGRAM SCREENING WITH TOMOSYNTHESIS WITH CAD (BILATERAL) Additional patient information: Screening. COMPARISON: Comparison is made with relevant prior imaging. Breast composition: There are scattered areas of fibroglandular density. FINDINGS: Radiopaque device obscures underlying tissue in the upper posterior leftbreast/axillary region on the MLO view. Within this limitation: There hasbeen no change in the mammographic findings since previous examination. No abnormal masses, suspicious calcifications, or other significantfindings are identified mammographically in either breast. IMPRESSION: No mammographic evidence of malignancy in either breast. Annual screening mammography is recommended. BI-RADS 2 BENIGN The patient will be notified of the results and recommendations. Joan Haley MD IMG MG EXAMS Final Re sult * DIABETES EYE EXAM FOR RESULT ENTRY ONLY (01/21/2020) Historical Provider HEALTH MAINTENANCE Final Result * Lipid panel (02/02/2019 10:24 AM EDT) HDL 52 mg/dL [facility] Comment: Interpretation <40 mg/dL: Low HDL cholesterol (major risk factor for CHD) Greater than or equal to 60 mg/dL: High HDL cholesterol ( negative risk factor for CHD) HDL - cholesterol is affected by a number of factors, e.g. smoking, excerise, hormones, sex and age. CHOLESTEROL 170 0 - 240 mg/dL [facility] TRIGLYCERIDES 103 30 - 160 mg/dL [facility] LDL 97 50 - 129 mg/dL [facility] Comment: LDL levels in terms of risk for coronary heart disease: <100 mg/dL: Optimal 100-129 mg/dL: Near or above optimal 130-159 mg/dL: Borderline high 160-189 mg/dL: High >190 mg/dL: Very High CARDIAC RISK RATIO 3.3 3.3 - 4.4 C [facility] Blood 02/02/2019 10:2 4 AM EDT 02/02/2019 10:30 AM EDT Ciarra Dunham [employer] LAB BLOOD ORDERABLES F inal Result [address] [address] * BD DXA AXIAL (SPINE) WITH HIP (12/24/2018 11:58 AM EDT) Anatomical Region Laterality Modality Bone Density Bone Density 12/24/2018 12:3 4 PM EDT Impressions 12/24/2018 12:36 PM EDT Normal bone mineral density. POS - [id number] Narrative 12/24/2018 12:36 PM EDT This is a 68-year-old postmenopausal white female who is not on estrogen replacement therapy and does not take calcium supplements. She describes a perceived height loss of approximately 3 inches. Evaluation of the lumbar spine and hips was performed and felt to be technically adequate. Total bone mineral density in the L1-L4 vertebral bodies was calculated at 1.162 gm/cm2 with a T-score of 1.0 and Z-score of 3.0, falling within the WHO classification of normal. Total bone mineral density in the right hip was calculated at 1.067 gm/cm2 with a T-score of 1.0 and Z-score of 2.4 falling within the WHO classification of normal. Total bone mineral density in the left hip was calculated at 1.082 gm/cm2 with a T-score of 1.2 and Z-score of 2.5 falling within the WHO classification of normal. Procedure Note Jhoana Trejo MD - 12/24/2018 This is a 68-year-old postmenopausal white female who is not on estrogenreplacement therapy and does not take calcium supplements. She describesa perceived height loss of approximately 3 inches. Evaluation of the lumbar spine and hips was performed and felt to betechnically adequate. Total bone mineral density in the L1-L4 vertebral bodies was calculated at1.162 gm/cm2 with a T-score of 1.0 and Z-score of 3.0, falling within theWHO classification of normal. Total bone mineral density in the right hip was calculated at 1.067 gm/ff6xjak a T-score of 1.0 and Z-score of 2.4 falling within the WHOclassification of normal. Total bone mineral density in the left hip wascalculated at 1.082 gm/cm2 with a T-score of 1.2 and Z-score of 2.5falling within the WHO classification of normal. IMPRESSION: Normal bone mineral density. POS - [id number] us Ciarra Dunham [employer] IMG BD BONE DENSITY DE XA Final Result * ENDOSCOPY, COLON (11/12/2018 8:22 AM EDT) Narrative Transcriptions Jhoana Huynh MD - 11/12/2018 8:22 AM EDT Patient Name: Tomeka Donaldson Attending MD:: JHOANA HUYNH MD Procedure Date: 11/12/2018 8:22 AM Date of : 1950 Age: 68 Admit Type: Outpatient Gender: Female Room: [facility] Referring MD: Ciarra Dunham Exam Type: Colonoscopy Indications: Colon cancer screening in patient at increased risk: Colorectal cancer in mother, Colon cancer screening in patient at increased risk: Family history of colorectal cancer in multiple 2nd degree relatives,(Paternalsuntand cousin) High risk colon cancer surveillance: Personal history of colonic polyps, Last colonoscopy: August2013, s/p sigmoid resection for diverticular edz Medications: Propofol per Anesthesia Procedure: Informed consent was obtained from the patient after discussion of the indications, limitations,alternatives, benefits, and risks of the procedure. Risksspecifically discussed include but are not limited to medication reactions, missed lesions, bleeding, perforation, orthe need for emergent surgery. Throughout the procedure, the patient's blood pressure, pulse, end-tidal CO2, and oxygen saturations were monitored continuously. The Olympus adult variable colonoscope [id number] #[id number] was introduced through the anus and advanced to theterminal ileum, with identification of the appendiceal orificeand IC valve. The terminal ileum, ileocecal valve,appendiceal orifice, and rectum were photographed. The colonoscopywas performed without difficulty. The patient tolerated the procedure well. The quality of the bowel preparationwas good. The bowel preparation used was GoLYTELY. Complications: No immediate complications. Estimated blood loss:None. Findings: The perianal and digital rectal examinations werenormal. Pertinent negatives include no palpable rectallesions. Internal hemorrhoids were found during retroflexion.The hemorrhoids were small. There was evidence of a prior end-to-side colo-colonic anastomosis at 15 cm proximal to the anus. This was characterized by healthy appearing mucosa. Many small-mouthed diverticula were found in the descending colon, transverse colon and ascendingcolon. A small polyp was found in the proximal ascendingcolon. The polyp was sessile. The polyp was removed with acold snare. Resection and retrieval were complete. The exam was otherwise without abnormality. The terminal ileum appeared normal. Retroflexion in the right colon was performed. Impression: - Internal hemorrhoids. - End-to-side colo-colonic anastomosis, characterizedby healthy appearing mucosa. - Mild diverticulosis in the descending colon, in the transverse colon and in the ascending colon. - One small polyp in the proximal ascending colon,removed with a cold snare. Resected and retrieved. - The examination was otherwise normal. - The examined portion of the ileum was normal. Recommendation: - Repeat colonoscopy in 5 years for surveillance. JHOANA HUYNH MD 11/12/2018 9:05:50 AM This report has been signed electronically. Number of Addenda: 0 Note Initiated On: 11/12/2018 8:22 AM Procedure Code(s): --- Professional --- 26330, Colonoscopy, flexible; with removal of tumor(s), polyp(s), or other lesion(s) by snare technique --- Technical --- 96394, Colonoscopy, flexible; with removal of tumor(s), polyp(s), or other lesion(s) by snare technique Diagnosis Code(s): --- Professional --- Z80.0, Family history of malignant neoplasm of digestive organs Z86.010, Personal history of colonic polyps K64.8, Other hemorrhoids Z98.0, Intestinal bypass and anastomosis status D12.2, Benign neoplasm of ascending colon K57.30, Diverticulosis of large intestine without perforation orabscess without bleeding --- Technical --- Z80.0, Family history of malignant neoplasm of digestive organs Z86.010, Personal history of colonic polyps K64.8, Other hemorrhoids Z98.0, Intestinal bypass and anastomosis status D12.2, Benign neoplasm of ascending colon K57.30, Diverticulosis of large intestine without perforation orabscess without bleeding CPT copyright 2016 [employer]. All rights reserved. The codes documented in this report are preliminary and upon invoice coder reviewmay be revised to meet current compliance requirements. [address] [place] [address] Ciarra Dunham [facility] GI PROCEDURE ORDERABLE S Final Result from Last 3 Months or Most Recently Relevant to Health Maintenance Insurance MEDICARE PART A & B datatracker MEDEX SUPPLEMENT MEDICARE PART A & B datatracker MEDEX SUPPLEMENT MEDICARE PART A & B BLUE CROSS MEDEX SUPPLEMENT MEDICARE PART A & B datatracker MEDEX SUPPLEMENT MEDICARE PART A & B datatracker MEDEX SUPPLEMENT MEDICARE PART A & B datatracker MEDEX SUPPLEMENT MEDICARE PART A & B datatracker MEDEX SUPPLEMENT MEDICARE PART A & B datatracker MEDEX SUPPLEMENT MEDICARE PART A & B WEEZEVENT CROSS MEDEX SUPPLEMENT Advance Directives For more information, please contact: [phone] (9AM - 5PM [facility] Saturday-Saturday) Documents on File Type Date Recorded Patient Hematology Specialist Expl anation Healthcare Proxy 08/14/2024 11:15 AM Healthcare Agents on File Name Relationship Healthcare Agent Relationshi p Communication Maira Perman Friend .Primary Health Care Agent (Proxy form on file) Angela Bryant Friend Alternate Health care Agent (Proxy form on file) Care Teams Public Transit Bus Driver Relationship Specialty Start Date End Date Joan Haley MD [address] [place] [address], [address] [place] [address] [email or web address] PCP - General Family Medicine 11/28/23 Jack Buitrago MBBS, MD [address] [place] [id number] [email or web address] Primary Oncologist Medical Oncology 11/17/20 Joan Haley MD [address] [place] [address] [address] [place] [address] Insurance Assigned Provider 10/05/23 Fahad Knott MD [address] [place] [phone] [email or web address] Endocrinology 11/27/22 Jhoana Huynh MD [address] [place] [id number] [email or web address] Gastroenterology 11/27/22 Hasmukh Rubio MD [address] [address] [email or web address] Cardiology 11/27/22 Additional Source Comments The information contained in this document represents components of the legal health record. It is not the complete legal health record.[facility]
--- OUTSIDE RECORDS SUMMARY | 2025-03-18 13:32 | XMS_ITS | Encounter Summary ---
Author Organization [facility] Address [address] [place] [address] Phone Care Team Providers Care Outreach Analyst Name Role Phone Jack Buitrago MD Unavailable Joan Haley MD Unavailable Fahad Knott MD Unavailable Gilmer Chahal MD Unavailable [phone] Hasmukh Rubio MD Unavailable [phone] Joan Haley MD Primary Care Provider + Kalpana Islas OT Unavailable [phone] Encounter Details Date Type Department Care Team (Late st Contact Info) Description 04/30/2024 Procedure Pass [facility] Endoscopy Admitting Dept Virtual Department 30 [place], [place] [id number] Social History Tobacco Use Types Packs/Day Years [...] as food, clothing, or medical care? No 04/28/2024 In the past 12 months have y ou been in a relationship with a person who hurts, threatens, or tries to control you? No 04/28/2024 Are you denied basic needs s uch as food, clothing, or medical care? No 04/28/2024 In the past 12 months have y ou been in a relationship with a person who hurts, threatens, or tries to control you? No 04/28/2024 Education Answer Date Recorded What is the highest level of school you have completed or the highest degree you have received? 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, CUSTOMS EXAMINER, FEMI) 07/30/2018 Comments No Sex and Gender [...] Info) Description 03/19/2025 4:15 PM EDT Appointment [facility], Bone Density - [facility] 30 [place] [address] Fahad Knott MD 31 [place] [address] 05/04/2025 11:40 AM EST Office Visit [facility] [address] [place] [address] 3rd Floor, [address] [place] [address] Josias Vasquez MD 50 [place] [address] documented as of this encounter Visit Diagnoses Not on filedocumented in this encounter Additional Health Concerns Infection Onset Date Last Indicated Resolved Time CoV-Risk 09/07/2024 09/07/2024 09/18/2024 1:21 AM EDT Assessment Noted Time PHQ-2 Depression Total Score: 2 03/12/20 24 11:24 PM EDT documented as of this encounter Care Teams Outreach Analyst Relationship Specialty Start Date End Date Joan Haley MD [address] [place] [address] 7 [place] [address] PCP - General Family Medicine 11/28/23 Jack Buitrago MBBS, MD [address] [place] [address] [email or web address] Primary Oncologist Medical Oncology 11/17/20 Joan Haley MD [address] [place] [address] 7 [place] [address] [email or web address] Insurance Assigned Provider 10/05/23 Fahad Knott MD [address] [place] [phone] [email or web address] Endocrinology 11/27/22 Gilmer Chahal MD [address] [place] [address] [email or web address] Gastroenterology 11/27/22 Hasmukh Rubio MD [address] [address] Cardiology 11/27/22 Kalpana Islas, OT [address] [place] [address] [email or web address] Transitions Curing Press MaintainerDormitory Maid Therapy 08/13/24 08/24/24 documented as of this encounter Additional Source Comments The information contained in this document represents components of the legal health record. It is not the complete legal health record.[facility]
--- OUTSIDE RECORDS SUMMARY | 2025-03-18 13:32 | XMS_ITS | Encounter Summary ---
Author Organization [facility] Address [address] [place] [address] Phone Care Team Providers Care City Administrator Name Role Phone Jack Buitrago MD Unavailable Joan Haley MD Unavailable [phone] Fahad Knott MD Unavailable Gilmer Chahal MD Unavailable Hasmukh Rubio MD Unavailable Joan Haley MD Primary Care Provider + Encounter Details Date Type Department Care Team (Late st Contact Info) Description 10/29/2024 Procedure Pass [facility] [place] [place] [address] Social History Tobacco Use Types Packs/Day [...] 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, FOOD AND BEVERAGE ORDER CLERK, FEMI) 07/30/2018 Comments No Sex and Gender [...] Info) Description 03/19/2025 4:15 PM EDT Appointment [facility], Bone Density - [facility] 30 [place] [address] Fahad Knott MD 31 [place] [address] 05/04/2025 11:40 AM EST Office Visit [facility] [address] [place] [address] 3rd Floor, [address] [place] [address] Josias Vasquez MD [address] [place] [address] documented as of this encounter Visit Diagnoses Not on filedocumented in this encounter Additional Health Concerns Assessment Noted Time PHQ-2 Depression Total Score: 2 03/12/20 24 11:24 PM EDT documented as of this encounter Care Teams City Administrator Relationship Specialty Start Date End Date Joan Haley MD 234 [facility], [facility] 7 [place] [address] PCP - General Family Medicine 11/28/23 Jack Buitrago MBBS, MD [address] [place] [address] [email or web address] Primary Oncologist Medical Oncology 11/17/20 Joan Haley MD [address] [place] [address] [address] [place] [address] [email or web address] Insurance Assigned Provider 10/05/23 Fahad Knott MD [address] [place] [phone] [email or web address] Endocrinology 11/27/22 Gilmer Chahal MD [address] [place] [address] [email or web address] Gastroenterology 11/27/22 Hasmukh Rubio MD [address] [address] [email or web address] Cardiology 11/27/22 documented as of this encounter Additional Source Comments The information contained in this document represents components of the legal health record. It is not the complete legal health record.[facility]
--- OUTSIDE RECORDS SUMMARY | 2025-03-18 13:32 | XMS_ITS | Encounter Summary ---
Author Organization [facility] Address [address] [facility] [address] [place] [address] Phone Care Team Providers Care Facilities Coordinator Name Role Phone Jack Buitrago MD Unavailable [phone] Sherine Osborn MD Unavailable [phone] Joan Haley MD Primary Care Provider + Joan Haley MD Unavailable [phone] Joan Haley MD Primary Care Provider + Fahad Knott MD Unavailable Gilmer Chahal MD Unavailable [phone] Hasmukh Rubio MD Unavailable [phone] Joan Haley MD Primary Care Provider + Kalpana Islas OT Unavailable Encounter Details Date Type Department Care Team (Late st Contact Info) Description 08/06/2022 Ancillary [facility] [address] 3rd Floor, [address] [place], [place] [phone] Hasmukh Rubio MD [address] [place] [address] Social History Tobacco Use Types Packs/Day Years [...] high school, GED, job training, learning the Mauritanian language, technical skills, or developing parenting skills)? [...] 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, DIRECTOR BANKING, FEIM) 07/30/2018 Comments No Sex and Gender Information [...] Description 03/19/2025 4:15 PM EDT Appointment [facility], Bone Density - [facility] [address] [place] [address] Fahad Knott MD 31 [place] [address] 05/04/2025 11:40 AM EST Office Visit [facility] [address] [facility] 3rd Floor, [address] [place] [address] Josias Vasquez MD [address] [place] [address] documented as of this encounter Visit Diagnoses Not on filedocumented in this encounter Additional Health Concerns Infection Onset Date Last Indicated Resolved Time CoV-Risk Comment:Per Ambulatory Triage Form 07/10/2023 07/10/202307/21 1:22 AM EST CoV-Risk 09/07/2024 09/07/2024 09/18/2024 1:21 AM EDT Assessment Noted Time PHQ-2 Depression Total Score: 1 11/24/19 22 8:16 AM EDT documented as of this encounter Care Teams Facilities Coordinator Relationship Specialty Start Date End Date Joan Haley MD 15 [facility] 201 [place] [address] PCP - General Family Medicine 11/22/21 11/26/22 Joan Haley MD 15 [facility] 201 [place] [address] PCP - General Family Medicine 11/27/22 11/27/23 Joan Haley MD [address] [place] [address] 7 [place] [address] PCP - General Family Medicine 11/28/23 Jack Buitrago MBBS, MD [address] [place] [address] [email or web address] Primary Oncologist Medical Oncology 11/17/20 Sherine Osborn MD [address] [phone] Insurance Assigned Provider 10/07/21 10/06/22 Joan Haley MD [address] [place] [address] 7 [place] [address] Insurance Assigned Provider 10/05/23 Fahad Knott MD [address] [place] [phone] [email or web address] Endocrinology 11/27/22 Gilmer Chahal MD [address] [place] [address] [email or web address] Gastroenterology 11/27/22 Hasmukh Rubio MD [address] [address] [email or web address] Cardiology 11/27/22 Kalpana Islas, OT 30 [place] [address] [email or web address] Transitions Buncher HandStore Team Leader Therapy 08/13/24 08/24/24 documented as of this encounter Additional Source Comments The information contained in this document represents components of the legal health record. It is not the complete legal health record.[facility]
--- OUTSIDE RECORDS SUMMARY | 2025-03-18 13:32 | XMS_ITS | Encounter Summary ---
Author Organization [facility] Address [address] [facility] [address] [place] [address] Phone Care Team Providers Care Operations Examiner Name Role Phone Jack Buitrago MD Unavailable Joan Haley MD Unavailable Fahad Knott MD Unavailable Gilmer Chahal MD Unavailable [phone] Hasmukh Rubio MD Unavailable Joan Haley MD Primary Care Provider + Kalpana Islas OT Unavailable Encounter Details Date Type Department Care Team (Late st Contact Info) Description 08/11/2024 Procedure Pass [facility], Ct Scan - [address] [phone] Social History Tobacco Use Types Packs/Day Years [...] 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, TOBACCO ROLLER, FEMI) 07/30/2018 Comments No Sex and Gender [...] Date of Assessment Author No Risk Indicated 08/12/2024 12:46 PM Isela Mackenzie RN * [place] Suicide Severity Rating Scale (Screener/Recent Self-Report) Question Answer Date of Assessment Author 1. Wish to be (Past 1 Month) No 025 12:46 PM Isela Mackenzie RN 2. Non-Specific Active Suici shama Thoughts (Past 1 Month) No 08/12/2024 12:46 PM Ronal Mackenzie RN 6. Suicidal Behavior (Lifetime) No 12:46 PM Isela Mackenzie RN documented as of this encounter Plan of Treatment Upcoming Encounters Date Type Department Care Team (Late st Contact Info) Description 03/19/2025 4:15 PM EDT Appointment [address] [address] Fahad Knott MD [address] [place] [address] [email or web address] 05/04/2025 11:40 AM EST Office Visit [facility] [address] [place] [address] 3rd Floor, [address] [place] [address] Josias Vasquez MD [address] [place] [address] documented as of this encounter Visit Diagnoses Not on filedocumented in this encounter Additional Health Concerns Infection Onset Date Last Indicated Resolved Time CoV-Risk 09/07/2024 09/07/2024 09/18/2024 1:21 AM EDT Assessment Noted Time PHQ-2 Depression Total Score: 2 03/12/20 24 11:24 PM EDT documented as of this encounter Care Teams Operations Examiner Relationship Specialty Start Date End Date Joan Haley MD [address] [facility], [address] [place] [address] PCP - General Family Medicine 11/28/23 Jack Buitrago MBBS, MD 450 [place] [address] [email or web address] Primary Oncologist Medical Oncology 11/17/20 Joan Haley MD [address] [facility], [address] [place] [address] Insurance Assigned Provider 10/05/23 Fahad Knott MD [address] [place] [phone] [email or web address] Endocrinology 11/27/22 Gilmer Chahal MD [address] [place] [address] Gastroenterology 11/27/22 Hasmukh Rubio MD [address] [place] [address] Cardiology 11/27/22 Kalpana Islas, OT 30 [place] [address] Transitions Sizer HandImplementation Coordinator Therapy 08/13/24 08/24/24 documented as of this encounter Additional Source Comments The information contained in this document represents components of the legal health record. It is not the complete legal health record.[facility]
--- OUTSIDE RECORDS SUMMARY | 2025-03-18 13:32 | XMS_ITS | Encounter Summary ---
Author Organization [facility] Address [address] [place] [address] [place] [address] Phone Care Team Providers Care Gynecologist Name Role Phone Jack Buitrago MD Unavailable Sherine Osborn MD Unavailable Joan Haley MD Primary Care Provider + Joan Haley MD Unavailable Joan Haley MD Primary Care Provider + Fahad Knott MD Unavailable Gilmer Chahal MD Unavailable Hasmukh Rubio MD Unavailable [phone] Joan Haley MD Primary Care Provider + Kalpana Islas OT Unavailable Encounter Details Date Type Department Care Team (Late st Contact Info) Description 11/24/2021 Procedure Pass [facility], [address] [phone] Social History Tobacco Use Types Packs/Day Years [...] 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, MAINSPRING FABRICATION SUPERVISOR, FEMI) 07/30/2018 Comments No Sex and Gender [...] Info) Description 03/19/2025 4:15 PM EDT Appointment [facility], Bone Density - [facility] 30 [place] [address] Fahad Knott MD 31 [place] [address] 05/04/2025 11:40 AM EST Office Visit [facility] [address] [facility] 3rd Floor, [address] [place] [address] Josias Vasquez MD 50 [place] [address] documented as of this encounter Visit Diagnoses Not on filedocumented in this encounter Additional Health Concerns Infection Onset Date Last Indicated Resolved Time CoV-Risk 03/28/2022 03/28/2022 04/08/2022 1:22 AM EDT CoV-Risk Comment:Per Ambulatory Triage Form 07/10/2023 07/10/202307/21 1:22 AM EST CoV-Risk 09/07/2024 09/07/2024 09/18/2024 1:21 AM EDT Assessment Noted Time PHQ-2 Depression Total Score: 1 11/24/19 8:16 AM EDT documented as of this encounter Care Teams Gynecologist Relationship Specialty Start Date End Date Joan Haley MD 15 [facility] 201 [place] [address] PCP - General Family Medicine 11/22/21 11/26/22 Joan Haley MD 15 [facility] [address] 201 [place] [address] PCP - General Family Medicine 11/27/22 11/27/23 Joan Haley MD [address] [place] [address], [address] [place] [address] PCP - General Family Medicine 11/28/23 Jack Buitrago MBBS, MD [address] [place] [address] [email or web address] Primary Oncologist Medical Oncology 11/17/20 Sherine Osborn MD 15 [facility] 201 [place] [address] Insurance Assigned Provider 10/07/21 10/06/22 Joan Haley MD [address] [place] [address] 7 [place] [address] Insurance Assigned Provider 10/05/23 Fahad Knott MD [address] [place] [phone] [email or web address] Endocrinology 11/27/22 Gilmer Chahal MD [address] [place] [address] Gastroenterology 11/27/22 Hasmukh Rubio MD 22 [facility] 301 [place] [address] Cardiology 11/27/22 Kalpana Islas, OT 30 [place] [address] Transitions Agricultural Loan OfficerNsh Teacher Therapy 08/13/24 08/24/24 documented as of this encounter Additional Source Comments The information contained in this document represents components of the legal health record. It is not the complete legal health record.[facility]
--- OUTSIDE RECORDS SUMMARY | 2025-03-18 13:32 | XMS_ITS | Encounter Summary ---
Author Organization [facility], Address [address] [place] [address] Phone Care Team Providers Care Application Development Liaison Name Role Phone Sherine Osborn MD Primary Care Provider [phone] Encounter Details Date Type Department Care Team (Late st Contact Info) Description 05/13/2020 Orders Only [facility] 51 [facility] 3 [place] [phone] Jeremiah Whiteside MD Chronic kidney disease stage [...] (HCC) documented in this encounter Care Teams Application Development Liaison Relationship Specialty Start Date End Date Sherine Osborn MD 15 [facility] [address] 201 [place] [address] PCP - General Family Medicine 05/08/21 documented as of this encounter
--- OUTSIDE RECORDS SUMMARY | 2025-03-18 13:32 | XMS_ITS | Encounter Summary ---
Author Organization [facility] Address [address] [place] [address] [place] [address] Phone Care Team Providers Care Rug Cleaning Supervisor Name Role Phone Sherine Osborn MD Primary Care Provider Jack Buitrago MD Unavailable Prosper Patrick MD Unavailable Sherine Osborn MD Unavailable Joan Haley MD Primary Care Provider + Joan Haley MD Unavailable [phone] Joan Haley MD Primary Care Provider + Fahad Knott MD Unavailable [phone] Gilmer Chahal MD Unavailable Hasmukh Rubio MD Unavailable Joan Haley MD Primary Care Provider + Kalpana Islas OT Unavailable [phone] Encounter Details Date Type Department Care Team (Late st Contact Info) Description 09/04/2021 Procedure Pass Non-Invasive Cardiology [address] [place] [address] Social History Tobacco Use Types Packs/Day Years [...] high school, GED, job training, learning the Argentine language, technical skills, or developing parenting skills)? [...] 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, SOLAR ENERGY SPECIALIST, FEMI) 07/30/2018 Comments No Sex and Gender [...] Info) Description 03/19/2025 4:15 PM EDT Appointment [facility], Bone Density - [facility] 30 [place] [address] Fahad Knott MD [address] [place] [address] 05/04/2025 11:40 AM EST Office Visit [facility] [address] [place] [address] 3rd Floor, [address] [place] [address] Josias Vasquez MD [address] [place] [address] documented as of this encounter Visit Diagnoses [...] documented as of this encounter Care Teams Rug Cleaning Supervisor Relationship Specialty Start Date End Date Sherine Osborn MD [address] [address] PCP - General Family Medicine 09/14/20 11/21/21 Joan Haley MD [address] [address] PCP - General Family Medicine 11/22/21 11/26/22 Joan Haley MD [address] [address] PCP - General Family Medicine 11/27/22 11/27/23 Joan Haley MD [address] [place] [address] [address] [place] [address] PCP - General Family Medicine 11/28/23 Jack Buitrago MBBS, MD [address] [place] [address] [email or web address] Primary Oncologist Medical Oncology 11/17/20 Prosper Patrick MD [address] [place] [address] [address] [place] [address] Insurance Assigned Provider 10/07/19 10/07/21 Sherine Osborn MD [address] [address] Insurance Assigned Provider 10/07/21 10/06/22 Joan Haley MD [address] [place] [address] 7 [place] [address] Insurance Assigned Provider 10/05/23 Fahad Knott MD [address] [place] [phone] [email or web address] Endocrinology 11/27/22 Gilmer Chahal MD [address] [place] [address] 2 [place] [address] Gastroenterology 11/27/22 Hasmukh Rubio MD 22 [facility] 301 [place] [address] Cardiology 11/27/22 Kalpana Islas, OT 30 [place] [address] [email or web address] Transitions Barrel StraightenerInstructor Psychiatric Aide Therapy 08/13/24 08/24/24 documented as of this encounter Additional Source Comments The information contained in this document represents components of the legal health record. It is not the complete legal health record.[facility]
--- OUTSIDE RECORDS SUMMARY | 2025-03-18 13:32 | XMS_ITS | Encounter Summary ---
Author Organization [facility] Address [address] [facility] [address] [place] [address] Phone Care Team Providers Care Director Of Kids Name Role Phone Sherine Osborn MD Primary Care Provider Jack Buitrago MD Unavailable [phone] Sherine Osborn MD Unavailable Joan Haley MD Primary Care Provider + Joan Haley MD Unavailable [phone] Joan Haley MD Primary Care Provider + Fahad Knott MD Unavailable [phone] Gilmer Chahal MD Unavailable Hasmukh Rubio MD Unavailable Joan Haley MD Primary Care Provider + Kalpana Islas OT Unavailable [phone] Encounter Details Date Type Department Care Team (Late st Contact Info) Description 10/12/2021 Procedure Pass Non-Invasive Cardiology [address] [place] [address] Social History Tobacco Use Types Packs/Day Years [...] high school, GED, job training, learning the [place] language, technical skills, or developing parenting skills)? [...] 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, HOTEL VALET ATTENDANT, FEMI) 07/30/2018 Comments No Sex and Gender [...] 4:15 PM EDT Appointment [facility], Bone Density - [facility] 30 [place] [address] Fahad Knott MD [address] [place] [address] 05/04/2025 11:40 AM EST Office Visit [facility] 22 [facility] 3rd Floor, [address] [place] [address] Josias Vasquez MD [address] [place] [address] [email or web address] documented as of this encounter Visit Diagnoses [...] documented as of this encounter Care Teams Director Of Kids Relationship Specialty Start Date End Date Sherine Osborn MD [address] [address] PCP - General Family Medicine 09/14/20 11/21/21 Joan Haley MD [address] [address] PCP - General Family Medicine 11/22/21 11/26/22 Joan Haley MD [address] [address] [email or web address] PCP - General Family Medicine 11/27/22 11/27/23 Joan Haley MD [address] [place] [address] [address] [place] [address] PCP - General Family Medicine 11/28/23 Jack Buitrago MBBS, MD [address] [place] [address] [email or web address] Primary Oncologist Medical Oncology 11/17/20 Sherine Osborn MD [address] [address] [email or web address] Insurance Assigned Provider 10/07/21 10/06/22 Joan Haley MD [address] [place] [address] 7 [place] [address] Insurance Assigned Provider 10/05/23 Fahad Knott MD [address] [place] [phone] [email or web address] Endocrinology 11/27/22 Gilmer Chahal MD [address] [place] [address] [email or web address] Gastroenterology 11/27/22 Hasmukh Rubio MD [address] [address] [email or web address] Cardiology 11/27/22 Kalpana Islas, OT [address] [place] [address] [email or web address] Transitions Hospital MonitorCredit Charge Authorizer Therapy 08/13/24 08/24/24 documented as of this encounter Additional Source Comments The information contained in this document represents components of the legal health record. It is not the complete legal health record.[facility]
--- OUTSIDE RECORDS SUMMARY | 2025-03-18 13:33 | XMS_ITS | Encounter Summary ---
Author Organization [facility] Address [address] [place] [address] [place] [address] Phone Care Team Providers Care Textile Screen Maker Name Role Phone Jack Buitrago MD Unavailable [phone] Sherine Osborn MD Unavailable Joan Haley MD Primary Care Provider + Joan Haley MD Unavailable Joan Haley MD Primary Care Provider + Fahad Knott MD Unavailable Gilmer Chahal MD Unavailable Hasmukh Rubio MD Unavailable Joan Haley MD Primary Care Provider + Kalpana Islas OT Unavailable [phone] Encounter Details Date Type Department Care Team (Late st Contact Info) Description 08/06/2022 Procedure Pass Non-Invasive Cardiology [address] [place] [id number] Social History Tobacco Use Types Packs/Day Years [...] high school, GED, job training, learning the Ethiopian language, technical skills, or developing parenting skills)? [...] 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, SLITTING MACHINE FEEDER, FEMI) 07/30/2018 Comments No Sex and Gender [...] 4:15 PM EDT Appointment [facility], [address] [place] [address] Fahad Knott MD 31 [place] [address] 05/04/2025 11:40 AM EST Office Visit [facility] 22 [facility] 3rd Floor, [address] [place] [address] Josias Vasquez MD 50 [place] [address] documented as of this encounter Visit Diagnoses Not on filedocumented in this encounter Additional Health Concerns Infection Onset Date Last Indicated Resolved Time CoV-Risk Comment:Per Ambulatory Triage Form 07/10/2023 07/10/202307/21 1:22 AM EST CoV-Risk 09/07/2024 09/07/2024 09/18/2024 1:21 AM EDT Assessment Noted Time PHQ-2 Depression Total Score: 0 11/28/19 12:50 AM EDT documented as of this encounter Care Teams Textile Screen Maker Relationship Specialty Start Date End Date Joan Haley MD [address] [address] PCP - General Family Medicine 11/22/21 11/26/22 Joan Haley MD 15 [facility] 201 [place] [address] PCP - General Family Medicine 11/27/22 11/27/23 Joan Haley MD [address] [place] [address], [address] [place] [address] PCP - General Family Medicine 11/28/23 Jack Buitrago MBBS, MD 450 [place] [address] [email or web address] Primary Oncologist Medical Oncology 11/17/20 Sherine Osborn MD 15 [facility] 201 [place] [address] Insurance Assigned Provider 10/07/21 10/06/22 Joan Haley MD 234 [facility] 7 [place] [address] Insurance Assigned Provider 10/05/23 Fahad Knott MD [address] [place] [phone] [email or web address] Endocrinology 11/27/22 Gilmer Chahal MD [address] [place] [address] [email or web address] Gastroenterology 11/27/22 Hasmukh Rubio MD 22 [facility] 301 [place] [address] [email or web address] Cardiology 11/27/22 Kalpana Islas, OT 30 [place] [address] Transitions Piping BlockerCaterer'S Aide Therapy 08/13/24 08/24/24 documented as of this encounter Additional Source Comments The information contained in this document represents components of the legal health record. It is not the complete legal health record.[facility]
--- OUTSIDE RECORDS SUMMARY | 2025-03-18 13:33 | XMS_ITS | Encounter Summary ---
Author Organization [facility] Address 399 [facility] [address] [place] [address] Phone Care Team Providers Care Corporate Relations Director Name Role Phone Aren Henao MD Unavailable Petey Motta MD Unavailable Colton Deleon MD Unavailable Sherry Burris MD Unavailable Michelle Douglas MD Unavailable Rd Street MD Unavailable [phone] Mateusz Bravo JUNIOR SALES ASSISTANT Unavailable Ciarra Dunham JUNIOR SALES ASSISTANT Primary Care Provider Prosper Patrick MD Unavailable Prosper Patrick MD Unavailable [phone] Sherine Osborn MD Primary Care Provider Jack Buitrago, Unavailable Prosper Patrick MD Unavailable [phone] Sherine Osborn MD Unavailable [phone] Joan Haley MD Primary Care Provider + Joan Haley MD Unavailable [phone] Joan Haley MD Primary Care Provider + Fahad Knott MD Unavailable [phone] Gilmer Chahal MD Unavailable [phone] Hasmukh Rubio MD Unavailable [phone] Joan Haley MD Primary Care Provider + Kalpana Islas OT Unavailable [phone] Encounter Details Date Type Department Care Team (Late st Contact Info) Description 11/12/2018 Procedure Pass [facility] Admitting Dept Virtual Department 30 [place], [place] [id number] Social History Tobacco Use Types Packs/Day Years Used Date Smoking Tobacco: Never Smokeless Tobacco: Never Alcohol Use Standard Drinks/Week Comments No 0 (1 standard drink = 0.6 oz pur e alcohol) Education Answer Date Recorded What is the highest level of school you have completed or the highest degree you have received? Master's degree (e.g., BRANDI, MS, Olinda, MEd, GAMBLING MONITOR, FEMI) 07/30/2018 Comments Unknown Sex and Gender Information Value [...] 03/19/2025 4:15 PM EDT Appointment [facility], [facility] 30 [place] [address] Fahad Knott MD [address] [place] [address] 05/04/2025 11:40 AM EST Office Visit [facility] 22 [facility] 3rd Floor, [address] [place] [address] Josias Vasquez MD 50 [place] [address] [email or web address] documented as of this encounter Visit Diagnoses Not on filedocumented in this encounter Additional Health Concerns Infection Onset Date Last Indicated Resolved Time CoV-Risk 03/26/2021 03/26/2021 04/05/2021 1:23 AM EDT CoV-Risk 03/28/2022 03/28/2022 04/08/2022 1:22 AM EDT CoV-Risk Comment:Per Ambulatory Triage Form 07/10/2023 07/10/202307/21 1:22 AM EST CoV-Risk 09/07/2024 09/07/2024 09/18/2024 1:21 AM EDT documented as of this encounter Care Teams Corporate Relations Director Relationship Specialty Start Date End Date Ciarra Dunham CNP [address] [place] [address] 765 [place] [address] [email or web address] PCP - General 05/28/17 09/13/20 Sherine Osborn MD [address] [place] [address] PCP - General Family Medicine 09/14/20 11/21/21 Joan Haley MD [address] [address] PCP - General Family Medicine 11/22/21 11/26/22 Joan Haley MD 15 [facility] 201 [place] [address] [email or web address] PCP - General Family Medicine 11/27/22 11/27/23 Joan Haley MD [address] [place] [address] 7 [place] [address] [email or web address] PCP - General Family Medicine 11/28/23 Aren Henao MD 22 [place] [address] [email or web address] Historical LMR Provider 04/20/17 09/13/20 Petey Motta MD [address] [place] [address] [email or web address] Historical LMR Provider 04/20/17 09/13/20 Colton Deleon MD 22 [facility], [address] [place] [address] [email or web address] Historical LMR Provider 04/20/17 1 Sherry Burris MD 22 [facility], [address] [place] [address] [email or web address] Historical LMR Provider 04/20/1708/29 Michelle Douglas MD 15 [facility], 2nd [place] [address] [email or web address] Historical LMR Provider 04/20/1709/[address] MD 22 [facility], [address] [place] [address] Historical LMR Provider 04/20/17 Mateusz Bravo CNP 15 [facility], 2nd [place] [address] Historical LMR Provider 04/20/17 09/13/20 Prosper Patrick MD [address] [place] [address] [place] [address] Insurance Assigned Provider 09/28/17 01/10/19 Prosper Patrick MD [address] [place] [address] [place] [address] Insurance Assigned Provider 10/07/19 09/13/20 Jack Buitrago MBBS, MD [address] [place] [address] [email or web address] Primary Oncologist Medical Oncology 11/17/20 Prosper Patrick MD 14 [facility] [address] [place] [address] Insurance Assigned Provider 10/07/19 10/07/21 Sherine Osborn MD 15 [facility] 201 [place] [address] Insurance Assigned Provider 10/07/21 10/06/22 Joan Haley MD 234 [facility], [address] [place] [address] [email or web address] Insurance Assigned Provider 10/05/23 Fahad Knott MD [address] [place] [phone] [email or web address] Endocrinology 11/27/22 Gilmer Cahhal MD [address] [place] [address] [email or web address] Gastroenterology 11/27/22 Hasmukh Rubio MD [address] [address] Cardiology 11/27/22 Kalpana Islas, OT 30 [place] [address] [email or web address] Transitions Extraction Machine OperatorMolding Machine Operator Therapy 08/13/24 08/24/24 documented as of this encounter Additional Source Comments The information contained in this document represents components of the legal health record. It is not the complete legal health record.[facility]
--- OUTSIDE RECORDS SUMMARY | 2025-03-18 13:33 | XMS_ITS | Encounter Summary ---
Author Organization [facility] Address 399 [facility] [address] [place] [address] Phone Care Team Providers Care Traveling Freight Agent Name Role Phone Jack Buitrago MD Unavailable Joan Haley MD Unavailable Joan Haley MD Primary Care Provider + Fahad Knott MD Unavailable [phone] Gilmer Chahal MD Unavailable [phone] Hasmukh Rubio MD Unavailable Joan Haley MD Primary Care Provider + Kalpana Islas OT Unavailable Encounter Details Date Type Department Care Team (Late st Contact Info) Description 11/27/2022 Procedure Pass [facility], [address] [phone] Social History Tobacco Use Types Packs/Day Years [...] with a working camera? Not on file Education Answer Date Recorded What is the highest level of school you have completed or the highest degree you have received? Master's degree (e.g., BRANDI, MS, Olinda, MEd, STAVE CUTTER, FEMI) 07/30/2018 Comments No Sex and Gender [...] Description 03/19/2025 4:15 PM EDT Appointment [facility], [address] [address] Fahad Knott MD [address] [place] [address] 05/04/2025 11:40 AM EST Office Visit [facility] [address] [place] [address] 3rd Floor, [address] [place] [address] Josias Vasquez MD [address] [place] [address] [email or web address] documented as of this encounter Visit Diagnoses Not on filedocumented in this encounter Additional Health Concerns Infection Onset Date Last Indicated Resolved Time CoV-Risk Comment:Per Ambulatory Triage Form 07/10/2023 07/10/202307/21 1:22 AM EST CoV-Risk 09/07/2024 09/07/2024 09/18/2024 1:21 AM EDT Assessment Noted Time PHQ-2 Depression Total Score: 0 11/28/19 12:50 AM EDT documented as of this encounter Care Teams Traveling Freight Agent Relationship Specialty Start Date End Date Joan Haley MD 234 [facility] 7 [place] [address] [email or web address] PCP - General Family Medicine 11/27/22 11/27/23 Joan Haley MD [address] [place] [address] 7 [place] [address] [email or web address] PCP - General Family Medicine 11/28/23 Jack Buitrago MBBS, MD [address] [place] [address] [email or web address] Primary Oncologist Medical Oncology 11/17/20 Joan Haley MD [address] [place] [address] 7 [place] [address] [email or web address] Insurance Assigned Provider 10/05/23 Fahad Knott MD [address] [place] [phone] [email or web address] Endocrinology 11/27/22 Gilmer Chahal MD [address] [place] [address] [email or web address] Gastroenterology 11/27/22 Hasmukh Rubio MD [address] [place], [place] [address]Iva [address] [address] Cardiology 11/27/22 Kalpana Islas, OT [address] [place] [address] [email or web address] Transitions Early Intervention School PsychologistPartition Setter Therapy 08/13/24 08/24/24 documented as of this encounter Additional Source Comments The information contained in this document represents components of the legal health record. It is not the complete legal health record.[facility]
--- OUTSIDE RECORDS SUMMARY | 2025-03-18 13:33 | XMS_ITS | Encounter Summary ---
Author Organization [facility] Address 399 [facility] [address] [place] [address] Phone Care Team Providers Care Director [employer]eronaut[employer] Commission Name Role Phone Jack Buitrago MD Unavailable [phone] Joan Haley MD Unavailable [phone] Fahad Knott MD Unavailable Gilmer Chahal MD Unavailable [phone] Hasmukh Rubio MD Unavailable Joan Haley MD Primary Care Provider + Kalpana Islas OT Unavailable Reason for Visit * Reason Onset Date Comments Follow-up 08/12/2024 Hip Pain 08/12/2024 Encounter Details Date Type Department Care Team (Late st Contact Info) Description 08/12/2024 Nurse Triage [facility] [address] [place], [place] [phone] Joan Haley MD [address] [facility], [address] [place], [place] [phone] [email or web address] Follow-up; Hip Pain Social History Tobacco Use Types Packs/Day Years [...] 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, MANAGER CREATIVE, FEMI) 07/30/2018 Comments No Sex and Gender [...] 08/12/2024 12:46 PM Isela Mackenzie RN * [place] Suicide Severity Rating Scale (Screener/Recent Self-Report) Question Answer Date of Assessment Author 1. Wish to be (Past 1 Month) No 025 12:46 PM Isela Mackenzie RN 2. Non-Specific Active Suici shama Thoughts (Past 1 Month) No 08/12/2024 12:46 PM Ronal Mackenzie RN 6. Suicidal Behavior (Lifetime) No 12:46 PM Isela Mackenzie RN documented as of this encounter Progress Notes * Aniya Hernandes RN - 08/12/2024 11:14 AM EST Patient calls saying she is in severe pain. The oxy that she was given from the ED yesterday NurseTriage Encounter Note Reason for Triage Tomeka Donaldson contacted office for Follow-up Hip Pain Call Disposition Go To Ed Now (Or To Office With Lip/Provider Approval) Disposition Comments: Patient/caregiver understands and will follow disposition: Initial Symptom Screening and Assessment [place] Symptom Onset Less than 24 hours Symptom Severity Severe - unable to do normal activities Symptom Pattern Constant/continuous Aggravating factors or triggers Recent trauma Home Treatments Prescribed Medications Did the home treatments work? No Location? LLE; RLE Pain level 8 Extremities Neck/Back Symptoms (Musculoskeletal) Musculoskeletal Symptoms Cannot put weight on limb; Mobility problems; Joint pain; Back pain Musculoskeletal Injury? Yes Location hip and low back pain Did you fall? No Care Advice Back [id number] Aniya Hernandes RN Wed Aug 12, 2024 11:15 AM Disposition and First Aid GO TO ED/UCC NOW (OR TO OFFICE WITH PCP APPROVAL): NOTE TO TRIAGER: * Use nurse judgment to select the most appropriate source of care. Consider both the urgency of the patient's symptoms AND what resources may be needed to evaluate and manage the patient. * Then tell the caller: Go to [facility]. Leave NOW. SOURCES OF CARE: * TRIAGER CAUTION: In selecting the most appropriate care site, you must consider both the severityof the patient's symptoms AND what resources are available at that care site. * ED: Patients who may need surgery, sound seriously ill or may be unstable need to be sent to an ED. Likewise, so do most patients with complex medical problems and serious symptoms. * UCC: Some UCCs can manage patients who are stable and have less serious symptoms (e.g., minor illnesses and injuries). The triager must know the UCC capabilities before sending a patient there. If unsure, call ahead. * OFFICE: If patient sounds stable and not seriously ill, consult PCP (or follow your office policy) to see if patient can be seen NOW in office. Patient will call back with additional questions or if symptoms change or worsen Aniya Hernandes RN Reason for Disposition and Assessment is not working at all. She can't stand or walk. Patient advised to return to the ED for further evaluation. Reason for Disposition Patient sounds very sick or weak to the triager Protocols used: Back [id number] * Tanner Fay - 08/12/2024 9:57 AM EST Emergency Department (ED, ER) Appointment Booking Telephone Encounter 1.Appointment scheduled within 5 calendar days:YES/NO: yes? 2.Virtual or in-person appointment: In-Person 3.Information related to the patient ER/ED visit: A. Facility Name:? [facility] ED B. Date of ED Visit: 08/11/2024 C. Reason for visit (Diagnosis/Symptoms):? sever hip pain - Pt would like a call back about the pain 4.Is the record of the Emergency Department visit in the chart: YES/NO: yes? a. IF NOT, patient was instructed to have records faxed to office, and to bring in a hard copy during the appointment. documented in this encounter Plan of Treatment Upcoming Encounters Date Type Department Care Team (Late st Contact Info) Description 03/19/2025 4:15 PM EDT Appointment [facility], [facility] - [address] [address] Fahad Knott MD 31 [place] [address] 05/04/2025 11:40 AM EST Office Visit [facility] 22 [facility] 3rd Floor, [address] [place] [address] Josias Vasquez MD 50 [place] [address] documented as of this encounter Visit Diagnoses Not on filedocumented in this encounter Additional Health Concerns Infection Onset Date Last Indicated Resolved Time CoV-Risk 09/07/2024 09/07/2024 09/18/2024 1:21 AM EDT Assessment Noted Time PHQ-2 Depression Total Score: 2 03/12/20 24 11:24 PM EDT documented as of this encounter Care Teams Director Aeronautics Commission Relationship Specialty Start Date End Date Joan Haley MD [address] [place] [address] 7 [place] [address] [email or web address] PCP - General Family Medicine 11/28/23 Jack Buitrago MBBS, MD [address] [place] [address] [email or web address] Primary Oncologist Medical Oncology 11/17/20 Joan Haley MD [address] [place] [address] 7 [place] [address] [email or web address] Insurance Assigned Provider 10/05/23 aFhad Knott MD 31 [place] [address] [email or web address] Endocrinology 11/27/22 Gilmer Chahal MD [address] [place] [address] [email or web address] Gastroenterology 11/27/22 Hasmukh Rubio MD 22 [facility] 301 [place] [address] Cardiology 11/27/22 Kalpana Islas, OT [address] [place] [address] [email or web address] Transitions Missing Persons InvestigatorPatient Transporter Therapy 08/13/24 08/24/24 documented as of this encounter Additional Source Comments The information contained in this document represents components of the legal health record. It is not the complete legal health record.[facility]
--- OUTSIDE RECORDS SUMMARY | 2025-03-18 13:33 | XMS_ITS | Encounter Summary ---
Author Organization [facility] Address [address] [place] [address] [place] [address] Phone Care Team Providers Care Human Resources Project Coordinator Name Role Phone Sherine Osborn MD Primary Care Provider Jack Buitrago MD Unavailable Prosper Patrick MD Unavailable Sherine Osborn MD Unavailable [phone] Joan Haley MD Primary Care Provider + Joan Haley MD Unavailable Joan Haley MD Primary Care Provider + Fahad Knott MD Unavailable [phone] Gilmer Chahal MD Unavailable Hasmukh Rubio MD Unavailable [phone] Joan Haley MD Primary Care Provider + Kalpana Islas OT Unavailable Encounter Details Date Type Department Care Team (Late st Contact Info) Description 10/06/2020 Procedure Pass [facility] [address] [place] [address] Social History Tobacco Use Types Packs/Day Years [...] high school, GED, job training, learning the Albanian language, technical skills, or developing parenting skills)? [...] 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, BRAILLE TRANSLATOR, FEMI) 07/30/2018 Comments No Sex and Gender [...] Info) Description 03/19/2025 4:15 PM EDT Appointment [facility], [facility] - [facility] 30 [place] [address] Fahad Kntot MD 31 [place] [address] 05/04/2025 11:40 AM EST Office Visit [facility] 22 [facility] 3rd Floor, [address] [place] [address] Josias Vasquez MD [address] [place] [address] documented as of this encounter Visit Diagnoses [...] documented as of this encounter Care Teams Human Resources Project Coordinator Relationship Specialty Start Date End Date Sherine Osborn MD [address] [address] PCP - General Family Medicine 09/14/20 11/21/21 Joan Haley MD 15 [facility] 201 [place] [address] PCP - General Family Medicine 11/22/21 11/26/22 Joan Haley MD [address] [address] PCP - General Family Medicine 11/27/22 11/27/23 Joan Haley MD [address] [place] [address] 7 [place] [address] PCP - General Family Medicine 11/28/23 Jack Buitrago MBBS, MD [address] [place] [address] [email or web address] Primary Oncologist Medical Oncology 11/17/20 Prosper Patrick MD [address] [place] [address] [address] [place] [address] Insurance Assigned Provider 10/07/19 10/07/21 Sherine Osborn MD [address] [address] Insurance Assigned Provider 10/07/21 10/06/22 Joan Haley MD [address] [place] [address] 7 [place] [address] Insurance Assigned Provider 10/05/23 Fahad Knott MD [address] [place] [phone] [email or web address] Endocrinology 11/27/22 Gilmer Chahal MD [address] [place] [address] [email or web address] Gastroenterology 11/27/22 Hasmukh Rubio MD [address] [place] [address] [email or web address] Cardiology 11/27/22 Kalpana Islas, OT [address] [place] [address] [email or web address] Transitions Group Sales RepresentativeComputational Linguist Therapy 08/13/24 08/24/24 documented as of this encounter Additional Source Comments The information contained in this document represents components of the legal health record. It is not the complete legal health record.[facility]
--- OUTSIDE RECORDS SUMMARY | 2025-03-18 13:33 | XMS_ITS | Encounter Summary ---
Author Organization [facility] Address [address] [facility] [address] [place] [address] Phone Care Team Providers Care Ornamental Metal Erector Name Role Phone Jack Buitrago MD Unavailable [phone] Joan Haley MD Unavailable Fahad Knott MD Unavailable Gilmer Chahal MD Unavailable [phone] Hasmukh uRbio MD Unavailable [phone] Joan Haley MD Primary Care Provider + Kalpana Islas OT Unavailable Encounter Details Date Type Department Care Team (Late st Contact Info) Description 08/12/2024 Telephone [facility] [address] [facility] 3rd Floor, [address] [place], [place] [id number] Aren Love DO [address] [place], [place] [id number] Social History Tobacco Use Types Packs/Day Years [...] 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, INVERTER AND CLIPPER, FEMI) 07/30/2018 Comments No Sex and Gender [...] 08/12/2024 12:46 PM Isela Mackenzie RN * [place] Suicide Severity Rating Scale (Screener/Recent Self-Report) Question [...] Info) Description 03/19/2025 4:15 PM EDT Appointment [address] [address] Fahad Knott MD [address] [place] [address] 05/04/2025 11:40 AM EST Office Visit [facility] [address] [place] [address] 3rd Floor, [address] [place] [address] Josias Vasquez MD [address] [place] [address] [email or web address] documented as of this encounter Visit Diagnoses Not on filedocumented in this encounter Additional Health Concerns Infection Onset Date Last Indicated Resolved Time CoV-Risk 09/07/2024 09/07/2024 09/18/2024 1:21 AM EDT Assessment Noted Time PHQ-2 Depression Total Score: 2 03/12/20 24 11:24 PM EDT documented as of this encounter Care Teams Ornamental Metal Erector Relationship Specialty Start Date End Date Joan Haley MD [address] [place] [address], [address] [place] [address] [email or web address] PCP - General Family Medicine 11/28/23 Jack Buitrago MBBS, MD [address] [place] [phone] [email or web address] Primary Oncologist Medical Oncology 11/17/20 Joan Haley MD [address] [place] [address] 7 [place] [address] Insurance Assigned Provider 10/05/23 Fahad Knott MD [address] [place] [phone] [email or web address] Endocrinology 11/27/22 Gilmer Chahal MD [address] [place] [phone] [email or web address] Gastroenterology 11/27/22 Hasmukh Rubio MD [address] [address] Cardiology 11/27/22 Kalpana Islas, OT 30 [place] [address] Transitions Bilingual Customer ServiceChemical Weigher Therapy 08/13/24 08/24/24 documented as of this encounter Additional Source Comments The information contained in this document represents components of the legal health record. It is not the complete legal health record.[facility]
--- OUTSIDE RECORDS SUMMARY | 2025-03-18 13:33 | XMS_ITS | Encounter Summary ---
Author Organization [facility] Address [address] [place] [address] [place] [address] Phone Care Team Providers Care Tufter Operator Name Role Phone Sherine Osborn MD Primary Care Provider Jack Buitrago MD Unavailable [phone] Prosper Patrick MD Unavailable [phone] Sherine Osborn MD Unavailable [phone] Joan Haley MD Primary Care Provider + Joan Haley MD Unavailable [phone] Joan Haley MD Primary Care Provider + Fahad Knott MD Unavailable Gilmer Chahal MD Unavailable Hasmukh Rubio MD Unavailable Joan Haley MD Primary Care Provider + Kalpana Islas OT Unavailable [phone] Encounter Details Date Type Department Care Team (Late st Contact Info) Description 09/14/2020 Procedure Pass [facility], [facility] Scan - [facility] [address] [place] [address] Social History Tobacco Use Types Packs/Day Years [...] high school, GED, job training, learning the [place] language, technical skills, or developing parenting skills)? [...] 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, RN DIALYSIS, FEMI) 07/30/2018 Comments No Sex and Gender [...] Info) Description 03/19/2025 4:15 PM EDT Appointment [facility], Bone Density - [facility] 30 [place] [address] Fahad Knott MD 31 [place] [address] 05/04/2025 11:40 AM EST Office Visit [facility] [address] [facility] 3rd Floor, [address] [place] [address] Josias Vasquez MD [address] [place] [address] documented as of this encounter Visit Diagnoses [...] documented as of this encounter Care Teams Tufter Operator Relationship Specialty Start Date End Date Sherine Osborn MD [address] [address] PCP - General Family Medicine 09/14/20 11/21/21 Joan Haley MD [address] [facility] 201 [place] [address] PCP - General Family Medicine 11/22/21 11/26/22 Jona Haley MD [address] [address] PCP - General Family Medicine 11/27/22 11/27/23 Joan Haley MD [address] [place] [address] 7 [place] [address] PCP - General Family Medicine 11/28/23 Jack Buitrago MBBS, MD [address] [place] [phone] [email or web address] Primary Oncologist Medical Oncology 11/17/20 Prosper Patrick MD [address] [place] [address] [address] [place] [address] Insurance Assigned Provider 10/07/19 10/07/21 Sherine Osborn MD [address] [address] Insurance Assigned Provider 10/07/21 10/06/22 Joan Haley MD [address] [place] [address] 7 [place] [address] Insurance Assigned Provider 10/05/23 Fahad Knott MD [address] [place] [phone] [email or web address] Endocrinology 11/27/22 Gilmer Chahal MD [address] [place] [address] [email or web address] Gastroenterology 11/27/22 Hasmukh Rubio MD [address] [place] [address] Cardiology 11/27/22 Kalpana Islas, OT [address] [place] [address] [email or web address] Transitions Key Bed InstallerInside Tester Therapy 08/13/24 08/24/24 documented as of this encounter Additional Source Comments The information contained in this document represents components of the legal health record. It is not the complete legal health record.[facility]
--- OUTSIDE RECORDS SUMMARY | 2025-03-18 13:33 | XMS_ITS | Encounter Summary ---
Author Organization [facility] Address [address] [facility] [address] [place] [address] Phone Care Team Providers Care Banking Assistant Name Role Phone Aren Henao MD Unavailable Petey Motta MD Unavailable Colton Deleon MD Unavailable Sherry Burris MD Unavailable Michelle Douglas MD Unavailable Rd Street MD Unavailable [phone] Mateusz Bravo PADDED PRODUCTS FINISHER Unavailable Ciarra Dunham PADDED PRODUCTS FINISHER Primary Care Provider Prosper Patrick MD Unavailable Sherine Osborn MD Primary Care Provider Jack Buitrago, Unavailable [phone] Prosper Patrick MD Unavailable Sherine Osborn MD Unavailable [phone] Joan Haley MD Primary Care Provider + Joan Haley MD Unavailable [phone] Joan Haley MD Primary Care Provider + Fahad Knott MD Unavailable [phone] Gilmer Chahal MD Unavailable [phone] Hasmukh Rubio MD Unavailable [phone] Joan Haley MD Primary Care Provider + RoshanKalpana OT Unavailable [phone] Encounter Details Date Type Department Care Team (Late st Contact Info) Description 06/11/2020 Procedure Pass Non-Invasive Cardiology [address] [place] [address] Social History Tobacco Use Types Packs/Day Years Used Date Smoking Tobacco: Never Smokeless Tobacco: Never Alcohol Use Standard Drinks/Week Comments No 0 (1 standard drink = 0.6 oz pur e alcohol) Education Answer Date Recorded What is the highest level of school you have completed or the highest degree you have received? 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) 07/30/2018 Comments No Sex and Gender [...] Info) Description 03/19/2025 4:15 PM EDT Appointment [facility] [place] 30 [place] [address] Fahad Knott MD 31 [place] [address] 05/04/2025 11:40 AM EST Office Visit [facility] [address] [facility] 3rd Floor, [address] [place] [address] Josias Vasquez MD 50 [place] [address] [email or web address] documented as of this encounter Visit Diagnoses Not on filedocumented in this encounter Additional Health Concerns Infection Onset Date Last Indicated Resolved Time CoV-Risk 03/26/2021 03/26/2021 04/05/2021 1:23 AM EDT CoV-Risk 03/28/2022 03/28/2022 04/08/2022 1:22 AM EDT CoV-Risk Comment:Per Ambulatory Triage Form 07/10/2023 07/10/202307/21 1:22 AM EST CoV-Risk 09/07/2024 09/07/2024 09/18/2024 1:21 AM EDT documented as of this encounter Care Teams Banking Assistant Relationship Specialty Start Date End Date Ciarra Dunham CNP [address] [place] [address] [place] [address] [email or web address] PCP - General 05/28/17 09/13/20 Sherine Osborn MD [address] [address] PCP - General Family Medicine 09/14/20 11/21/21 Joan Haley MD [address] [address] [email or web address] PCP - General Family Medicine 11/22/21 11/26/22 Joan Haley MD [address] [address] [email or web address] PCP - General Family Medicine 11/27/22 11/27/23 Joan Haley MD [address] [place] [address] 7 [place] [address] [email or web address] PCP - General Family Medicine 11/28/23 Aren Henao MD 22 [place] [address] [email or web address] Historical LMR Provider 04/20/17 09/13/20 Petey Motta MD [address] [place] [phone] [email or web address] Historical LMR Provider 04/20/17 09/13/20 Colton Deleon MD [address] [facility] 301 [place] [address] [email or web address] Historical LMR Provider 04/20/17 Sherry Burris MD [address] [facility] 203 [place] [address] [email or web address] Historical LMR Provider 04/20/1708/29 Michelle Douglas MD [address] [facility], 2nd [place] [address] [email or web address] Historical LMR Provider 04/20/1709/[address] MD [address] [facility] [place] [address] Historical LMR Provider 04/20/17 Mateusz Bravo CNP [address] [facility], 2nd [place] [address] Historical LMR Provider 04/20/17 09/13/20 Prosper Patrick MD [address] [place] [address] [address] [place] [address] Insurance Assigned Provider 10/07/19 09/13/20 Jack Buitrago MBBS, MD [address] [place] [address] [email or web address] Primary Oncologist Medical Oncology 11/17/20 Prosper Patrick MD [address] [place] [address] [address] [place] [address] Insurance Assigned Provider 10/07/19 10/07/21 Sherine Osborn MD [address] [facility] [address] [place] [address] Insurance Assigned Provider 10/07/21 10/06/22 Joan Haley MD [address] [place] [address], [address] [place] [address] Insurance Assigned Provider 10/05/23 Fahad Knott MD [address] [place] [phone] [email or web address] Endocrinology 11/27/22 Gilmer Chahal MD [address] [place] [address] [email or web address] Gastroenterology 11/27/22 Hasmukh Rubio MD [address] [address] Cardiology 11/27/22 Kalpana Islas, OT [address] [place] [address] [email or web address] Transitions Nurse First AidAnimal Trainer Supervisor Therapy 08/13/24 08/24/24 documented as of this encounter Additional Source Comments The information contained in this document represents components of the legal health record. It is not the complete legal health record.[facility]
== END 2025-03-18 11:39 | disposition home or self-care (01) ==
LOC: HO.HNS 11:14
PROVIDERS: PCP Family Medicine; Visit Provider Physician Assistant
DX: Z98.890 Other specified postprocedural states (principal)
CPT/HCPCS: 99024

== ENCOUNTER → 2025-03-18 11:14 | Outpatient (BNVA) | payer MEDICARE, SELFPAY | PROVIDERS: PCP Family Medicine; Visit Provider Physician Assistant | DX: Z47.89 Encounter for other orthopedic aftercare (principal); Z98.890 Other specified postprocedural states | CPT/HCPCS: 99212 ==